=== PATIENT | male | born 1975 ===

== ENCOUNTER 2017-08-28 11:03 | Emergency (ER) | payer OTHER ==
[2017-08-28 12:48] VITALS: BP 107/64
--- NOTE | 2017-08-28 14:09 | UC ---
FLU HPI - HPI Summary HPI Summary: 2 DAYS OF COUGH, CONGESTION, SINUS PRESSURE, BODY ACHES, FEVER TMAX 101, LARKIN. UTD FLU SHOT. - History of Current Complaint Chief Complaint: UCGeneralIllness Stated Complaint: FLU LIKE SX Time Seen by Provider: 08/28/17 13:51 Hx Obtained From: Patient Onset/Duration: Gradual Onset, Lasting Days, Still Present Severity Currently: Moderate Severity Initially: Moderate Pain Intensity: 8 Pain Scale Used: 0-10 Numeric Associated Signs & Symptoms: Positive: Fever, Myalgia, Cough, Nasal Congestion, Headache - Allergy/Home Medications Allergies/Adverse Reactions: Allergies Allergy/AdvReac Type Severity Reaction Status Date / Time Morphine Allergy Itching Verified 08/28/17 12:48 PMH/Surg Hx/FS Hx/Imm Hx Cardiovascular History: Cardiac Disease GI/ History: Renal Disease - Surgical History Surgical History: Yes Surgery Procedure, Year, and Place: Cadiac stents, Chronic kidney disease - Family History Known Family History: Positive: Cardiac Disease, Hypertension - Social History Alcohol Use: None Substance Use Type: None Smoking Status (MU): Former Smoker Review of Systems Constitutional: Fever, Chills, Fatigue ENT: Nasal Discharge Respiratory: Cough Cardiovascular: Negative Gastrointestinal: Negative Musculoskeletal: Myalgia Neurological: Headache All Other Systems Reviewed And Are Negative: Yes Physical Exam Triage Information Reviewed: Yes Appearance: No Pain Distress, Well-Nourished, Ill-Appearing - MOD Vital Signs: Initial Vital Signs Temp 100 F 08/28/17 12:44 Pulse 82 08/28/17 12:44 Resp 16 08/28/17 12:44 BP 107/64 08/28/17 12:44 Pulse Ox 98 08/28/17 12:44 Vital Signs Reviewed: Yes Eyes: Positive: Conjunctiva Clear ENT: Positive: Hearing grossly normal, Pharynx normal, TMs normal Neck: Positive: Supple, Nontender, No Lymphadenopathy Respiratory Exam: Normal Cardiovascular Exam: Normal Abdomen Description: Positive: Soft Musculoskeletal: Positive: No Edema Neurological: Positive: Alert Psychological: Positive: Age Appropriate Behavior Skin: Negative: rashes Diagnostics - Laboratory Diagnostic Studies Completed/Ordered: SWAB POSITIVE INFLUENZA A Flu Course/Dx - Differential Dx/Diagnosis Provider Diagnoses: INFLUENZA A Discharge - Discharge Plan Condition: Stable Disposition: HOME Prescriptions: Oseltamivir CAP* [Tamiflu CAP*] 75 mg PO BID #10 cap Patient Education Materials: Influenza (ED) Referrals: Sanjuana Carbone MD [Primary Care Provider] - If Needed Additional Instructions: SWAB POSITIVE FOR INFLUENZA A. TAMIFLU TWICE DAILY FOR 5 DAYS. OTC MEDS NEEDED FOR FEVER, BODY ACHES. STAY WELL HYDRATED AND RESTED. SEEK FOLLOW-UP IF YOU ARE NOT IMPROVING EXPECTED.
== END 2017-08-28 14:09 | disposition home or self-care (01) ==
LOC: UCCORT 11:03
DX: J09.X2 Influenza due to identified novel influenza A virus with other respiratory manifestations (principal); Z87.891 Personal history of nicotine dependence
CPT/HCPCS: 87502; 99212; G0463

== ENCOUNTER 2018-12-22 21:24 | Emergency (ER) | payer MEDICAID, MEDICARE, OTHER ==
--- OUTSIDE RECORDS SUMMARY | 2018-12-22 21:38 | XMS REPORT | Continuity of Care Document ---
:1975 External Reference #:[id number] Author Name Annamaria Jimenez MD Address [address] [place] [address] Care Team Providers Name Role Phone Efrain Mccloud MD Care Team Information Assistant Manager Quality Management Unavailable Efrain Mccloud MD Primary Care Physician Unavailable Payers Date Identification Numbers Payment Provider Subscriber Policy Number: [id number] Medicare Yoni Bowser PayID: [id number] [address] [place] [address] Expires: 2018 Policy Number: [id number] Medicare Yoni Bowser PayID: [id number] [address] [place] [address] Advance Directives Description No Information Available Problems Active Problems Provider Date Arthralgia of the lower leg Leighton Quezada MD Onset: 05/13/2011 Mixed hyperlipidemia Bia Todd MD Onset: 12/05/2014 Type 2 diabetes mellitus Sanjuana Carbone M.D. Onset: 11/05/2017 Hyperlipidemia Sanjuana Carbone M.D. Onset: 11/05/2017 Chronic kidney disease stage 3 Sanjuana Carbone M.D. Onset: 11/05/2017 Hypothyroidism Sanjuana Carbone M.D. Onset: 11/05/2017 Corns and callosities Sanjuana Carbone M.D. 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 Pure hypercholesterolemia Tigist Burk PA Onset: 05/06/2018 Chronic kidney disease Efrain Mccloud MD Onset: 12/13/2018 Family History Date Family Member(s) Observation Comments General Stroke General Diabetes : (age 71 Father due to Unknown Years) Causes Mother Diabetes Mellitus Type 2 Onset: (age 52 Years) First Brother CAD LVAD Onset: (age 48 Years) First Sister CAD valve replacment Social History Type Date Description Comments Sex Unknown Lives With Diet Patient follows no dietary restrictions 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 Hand Dominance Right-handed ADL's/IADL's Independent with all ADL's Tobacco Use Start: Unknown End: Quit Unknown Cigarette Use Pack Years - 25 Smoking Status Reviewed: 12/14/18 Quit ETOH Use Denies alcohol use Recreational Drug Use Denies Drug Use Tobacco Use Start: Unknown End: Patient is a former smoker Unknown Allergies, Adverse Reactions, Alerts Active Allergies Reaction Severity Comments Date Morphine 05/09/2011 Medications Active Medications SIG Qnty Indications Ordering Date Provider Nicolette Shirley 62 units at night 15ml Efrain Mccloud, 08/12/2018 100Unit/ML Solution Pen-Inject Levothyroxine Sodium 1 tab by mouth every 90tabs Efrain Mccloud, 06/28/2018 day as directed 125mcg Tablets Pentips use for flexpen 100units Sanjuana Carbone, 01/28/2018 31G X 5 mm M.DSukhwinder Misc Multilex take 1 tablet by 100tabs Poolune, 01/12/2018 Tablets mouth once daily BAUDILIO Montano BD Pen place on flexpen for 100units Efrain Mccloud, 11/05/2017 Needle/Laura/Ultra injection once Fine/32G X 4mm daily. one time use 32G X 4 mm Misc Clopidogrel take 1 tablet by 90tabs Efrain Mccloud, 10/15/2017 Bisulfate mouth once daily 75mg Tablets Novolog Flexpen inject 8 units 15units E11.9 Efrain Mccloud, 08/07/2017 subcutaneously three MD 100Unit/ML Solution times daily with Pen-Inject meals use 10 units if sugar over 200, max daily dose is 75 u Freestyle Test check sugar in in 100units Efrain Mccloud, 05/27/2017 the morning fasting, Strips before meals and before bed dx. e11.9 Metoprolol Succinate 1 by mouth every day 90tabs Efrain Mccloud, 04/22/2017 ER 50mg Tablets ER 24HR Torsemide take one tablet by 180tabs Efrain Mccloud, 10/30/2016 20mg mouth twice a day Tablets Nitrostat 1. tab s.l. as 25tabs Bia Todd, 03/04/2016 0.4mg needed every 5 min. Tablets Sub Entresto Take 1 Tablet By 180tabs Susanne, 11/20/2015 24-26mg Mouth Twice Daily Dilan Ríos, Tablets M.D., [facility] Aspirin Ec 1 po qd 90tabs Sanjuana Carbone, 81mg M.D. Tablets DR Atorvastatin Calcium 1 by mouth every day 90tabs Efrain Mccloud, 80mg Tablets History Medications Ventolin HFA 2 puffs q4-6 8gm R06.02 Efrain Mccloud, 08/12/2018 - 108(90Base) hours as needed Unknown mcg/Act Aerosol Magnesium Oxide take one tablet 60tabs Ramesh, 01/12/2018 - by mouth twice [facility], 08/06/2018 400(240mg) mg Tablets daily INSTRUMENTATION AND CONTROLS TECHNICIAN Magnesium Oxide Take One Tablet 60tabs Sanjuana Carbone, 10/15/2017 - By Mouth Twice M.D. Unknown 400(240mg) mg Tablets Daily Lantus Solostar inject 55 units 15units Efrain Mccloud, 08/07/2017 - every night at 08/12/2018 100Unit/ML Solution bedtime Pen-Inject BD Pen place on flexpen 90units Sanjuana Carbone, 05/20/2017 - Needle/Laura/Ultra for injection M.D. 01/28/2018 Fine/32G X once daily. one [id number] time use Levothyroxine Sodium 1 by mouth every Bia oTdd, 10/24/2015 - day Unknown 112mcg Tablets Levothyroxine Sodium 1 by mouth every 90tabs Ramesh, 10/24/2015 - day Charmaine, 06/28/2018 112mcg Tablets INSTRUMENTATION AND CONTROLS TECHNICIAN Entresto 1 by mouth twice 60tabs Bia Todd, 10/01/2015 - 24-26mg Tablets a day Unknown Metoprolol Succinate take 1 tablet 30tabs Bia Todd, 04/17/2015 - ER once daily in in 05/16/2015 50mg Tablets ER 24HR the morning for a total daily dose 150 mg Levothyroxine Sodium 1 tab by mouth 30tabs Bia Todd, 04/17/2015 - daily at leats 30 10/24/2015 100mcg Tablets min before breakfast Entresto 1 tab by mouth 60tabs Bia Todd, 04/17/2015 - 49-51mg Tablets twice daily MD Unknown Magnesium 1 by mouth twice Unknown - 400mg Tablets daily Unknown Nicolette Shirley 55u, titrate as 15ml Sanjuana Carbone, - directed M.D. 08/07/2017 100Unit/ML Solution Pen-Inject Lisinopril 1/2 tab po qd Bia Todd, - 5mg Tablets 11/20/2015 Levothyroxine Sodium 1 and a half tab Bia Todd, - by mouth every MD 04/17/2015 50mcg Tablets day Torsemide 1 by mouth twice 120tabs Susanne, - 20mg Tablets a day Dilan Ríos, 10/30/2016 M.D., [facility] Spironolactone 1 by mouth every Unknown - 25mg day 04/17/2015 Tablets Multi-Day Vitamins 1 by mouth every 100tabs Sanjuana Carbone, - day M.D. 01/12/2018 Tablets Metoprolol Succinate 1/2 by mouth 45tabs Sanjuana Carbone, - ER every day M.D. 04/22/2017 100mg Tablets ER 24HR Magnesium-Oxide 1 by mouth twice 60tabs Sanjuana Carbone, - a day M.D. Unknown 400(241.3mg) mg Tablets Humalog Kwikpen 9ml E11.9 Sanjuana Carbone, - M.D. 08/07/2017 100Unit/ML Solution Pen-Inject Lantus Solostar 55 units every Unknown - day Unknown 100Unit/ML Solution Pen-Inject Plavix 1 by mouth every 90tabs Sanjuana Carbone, - 75mg Tablets day M.D. 10/15/2017 Calcium Carbonate by mouth every Unknown - 650mg day Unknown Tablets Atorvastatin Calcium 1 by mouth every Unknown - 80mg day Unknown Tablets Amiodarone HCL 1 by mouth every Unknown - 100mg day 11/20/2015 Tablets Lipitor 1 po qd 90tabs Unknown - 10mg Tablets Unknown Levothyroxine Sodium 1 po qd 60tabs Unknown - 05/12/2011 50mcg Tablets Tramadol HCL 1 po as needed 20tabs Unknown - 50mg Tablets for pain Unknown Lipitor tab po qd Unknown - 20mg Tablets 05/09/2011 Lisinopril 1 po qd 30tabs Unknown - 5mg Tablets 04/17/2015 Metformin HCL 1 po qd Unknown - 1000mg Unknown Tablets Plavix 1 po qd 30tabs Unknown - 75mg Tablets 05/12/2011 Immunizations CPT Code Status Date Vaccine Lot # [id number] Given 08/06/2017 Influenza Virus Vaccine Quadrivalent Iiv4 Split [id number] Preser Free Id [id number] Refused 04/22/2017 Influenza Vaccine (Fluzone) Age 3 And Older Vital Signs Date Vital Result Comment 12/20/2018 8:48am BP Systolic Sitting Left Arm 122 mmHg BP Diastolic Sitting Left Arm 79 mmHg Body Temperature 97.3 F Heart Rate 70 /min Height 71 inches 5'11" Weight 241.00 lb BMI (Body Mass Index) 33.6 kg/m2 BSA (Body Surface Area) 2.28 m2 [place] body weight in kilograms 78 kg O2 % BldC Oximetry 96 % 12/13/2018 8:47am BP Systolic Sitting Left Arm 112 mmHg BP Diastolic Sitting Left Arm 68 mmHg Body Temperature 97.0 F Heart Rate 70 /min Weight 242.12 lb O2 % BldC Oximetry 94 % 10/19/2018 10:34am BP Systolic Sitting Left Arm 112 mmHg BP Diastolic Sitting Left Arm 70 mmHg Heart Rate 69 /min Respiratory Rate 16 /min Height 71 inches 5'11" Weight 247.00 lb BMI (Body Mass Index) 34.4 kg/m2 BSA (Body Surface Area) 2.31 m2 [place] body weight in kilograms 78 kg O2 Saturation Level with Exercise 97 % 09/13/2018 8:19am BP Systolic 130 mmHg BP Diastolic 78 mmHg Body Temperature 97.5 F Heart Rate 77 /min Respiratory Rate 18 /min Height 71 inches 5'11" Weight 237.00 lb BMI (Body Mass Index) 33.1 kg/m2 BSA (Body Surface Area) 2.27 m2 [place] body weight in kilograms 78 kg O2 % BldC Oximetry 97 % 08/12/2018 2:48pm BP Systolic Sitting Left Arm 102 mmHg BP Diastolic Sitting Left Arm 64 mmHg Body Temperature 98.2 F Heart Rate 71 /min Respiratory Rate 16 /min Height 71 inches 5'11" Weight 234.00 lb BMI (Body Mass Index) 32.6 kg/m2 BSA (Body Surface Area) 2.25 m2 [place] body weight in kilograms 78 kg O2 % BldC Oximetry 98 % 06/28/2018 8:26am BP Systolic Sitting Left Arm 122 mmHg BP Diastolic Sitting Left Arm 72 mmHg Heart Rate 68 /min Respiratory Rate 18 /min Height 71 inches 5'11" Weight 241.00 lb BMI (Body Mass Index) 33.6 kg/m2 BSA (Body Surface Area) 2.28 m2 [place] body weight in kilograms 78 kg 05/06/2018 10:51am BP Systolic Sitting Left Arm 118 mmHg BP Diastolic Sitting Left Arm 74 mmHg Heart Rate 64 /min Respiratory Rate 16 /min Height 71 inches 5'11" Weight 237.00 lb BMI (Body Mass Index) 33.1 kg/m2 BSA (Body Surface Area) 2.27 m2 [place] body weight in kilograms 78 kg O2 % BldC Oximetry 97 % Room air 02/05/2018 10:53am BP Systolic 112 mmHg BP Diastolic 64 mmHg Body Temperature 96.9 F Heart Rate 60 /min Respiratory Rate 18 /min Height 71 inches 5'11" Weight 234.00 lb BMI (Body Mass Index) 32.6 kg/m2 BSA (Body Surface Area) 2.25 m2 [place] body weight in kilograms 78 kg O2 % BldC Oximetry 96 % 11/05/2017 10:45am BP Systolic Sitting Left Arm 120 mmHg BP Diastolic Sitting Left Arm 78 mmHg Body Temperature 97.4 F Heart Rate 70 /min Weight 239.25 lb O2 % BldC Oximetry 98 % 10/29/2017 1:02pm BP Systolic Sitting Left Arm 126 mmHg BP Diastolic Sitting Left Arm 74 mmHg Heart Rate 72 /min Respiratory Rate 16 /min Height 70 inches 5'10" Weight 238.00 lb BMI (Body Mass Index) 34.1 kg/m2 BSA (Body Surface Area) 2.25 m2 [place] body weight in kilograms 75 kg 08/14/2017 9:47am BP Systolic 102 mmHg BP Diastolic 72 mmHg Body Temperature 96.6 F Heart Rate 69 /min Height 70 inches 5'10" Weight 234.00 lb BMI (Body Mass Index) 33.6 kg/m2 BSA (Body Surface Area) 2.23 m2 [place] body weight in kilograms 75 kg O2 % BldC Oximetry 96 % 08/06/2017 10:32am BP Systolic 106 mmHg BP Diastolic 66 mmHg Body Temperature 97.9 F Heart Rate 70 /min Height 70 inches 5'10" Weight 235.00 lb BMI (Body Mass Index) 33.7 kg/m2 BSA (Body Surface Area) 2.24 m2 [place] body weight in kilograms 75 kg O2 % BldC Oximetry 96 % 05/27/2017 10:56am BP Systolic Sitting Left Arm 106 mmHg BP Diastolic Sitting Left Arm 70 mmHg Heart Rate 60 /min Respiratory Rate 16 /min Height 70 inches 5'10" Weight 229.00 lb BMI (Body Mass Index) 32.9 kg/m2 BSA (Body Surface Area) 2.21 m2 [place] body weight in kilograms 75 kg 04/22/2017 10:15am BP Systolic Sitting Right Arm 112 mmHg BP Diastolic Sitting Right Arm 72 mmHg Height 70 inches 5'10" Weight 237.12 lb BMI (Body Mass Index) 34.0 kg/m2 BSA (Body Surface Area) 2.24 m2 [place] body weight in kilograms 75 kg 03/05/2017 2:42pm BP Systolic Sitting Right Arm 122 mmHg BP Diastolic Sitting Right Arm 76 mmHg Heart Rate 98 /min Height 69 inches 5'9" Weight 229.25 lb BMI (Body Mass Index) 33.9 kg/m2 BSA (Body Surface Area) 2.19 m2 [place] body weight in kilograms 73 kg 02/04/2017 1:39pm BP Systolic Sitting Left Arm 110 mmHg BP Diastolic Sitting Left Arm 82 mmHg Heart Rate 60 /min Respiratory Rate 16 /min Height 69 inches 5'9" Weight 227.00 lb BMI (Body Mass Index) 33.5 kg/m2 BSA (Body Surface Area) 2.18 m2 [place] body weight in kilograms 73 kg 01/20/2017 11:34am BP Systolic 116 mmHg BP Diastolic 62 mmHg Body Temperature 97.4 F Heart Rate 70 /min Height 69 inches 5'9" Weight 227.50 lb BMI (Body Mass Index) 33.6 kg/m2 BSA (Body Surface Area) 2.18 m2 [place] body weight in kilograms 73 kg 09/24/2016 11:01am BP Systolic Sitting Right Arm 110 mmHg BP Diastolic Sitting Right Arm 70 mmHg Heart Rate 64 /min Respiratory Rate 16 /min Height 69 inches 5'9" Weight 233.00 lb BMI (Body Mass Index) 34.4 kg/m2 BSA (Body Surface Area) 2.20 m2 06/18/2016 1:38pm BP Systolic Sitting Left Arm 114 mmHg machine 104/76 BP Diastolic Sitting Left Arm 82 mmHg machine 104/76 Heart Rate 68 /min Respiratory Rate 16 /min Height 69 inches 5'9" Weight 228.00 lb BMI (Body Mass Index) 33.7 kg/m2 BSA (Body Surface Area) 2.18 m2 06/04/2016 3:43pm BP Systolic Sitting Right Arm 122 mmHg BP Diastolic Sitting Right Arm 72 mmHg Heart Rate 74 /min Respiratory Rate 16 /min Height 69 inches 5'9" Weight 232.00 lb BMI (Body Mass Index) 34.3 kg/m2 BSA (Body Surface Area) 2.20 m2 03/04/2016 8:13am BP Systolic 108 mmHg BP Diastolic 70 mmHg Heart Rate 60 /min Respiratory Rate 18 /min Height 69 inches 5'9" Weight 232.12 lb BMI (Body Mass Index) 34.3 kg/m2 BSA (Body Surface Area) 2.20 m2 01/02/2016 10:13am BP Systolic Sitting Right Arm 100 mmHg BP Diastolic Sitting Right Arm 76 mmHg BP Systolic Sitting Left Arm 110 mmHg BP Diastolic Sitting Left Arm 75 mmHg Heart Rate 57 /min Respiratory Rate 16 /min Height 69 inches 5'9" Weight 231.00 lb BMI (Body Mass Index) 34.1 kg/m2 BSA (Body Surface Area) 2.20 m2 11/28/2015 10:09am BP Systolic Sitting Left Arm 102 mmHg BP Diastolic Sitting Left Arm 76 mmHg Heart Rate 58 /min Respiratory Rate 16 /min Height 69 inches 5'9" Weight 234.00 lb BMI (Body Mass Index) 34.6 kg/m2 BSA (Body Surface Area) 2.21 m2 10/24/2015 10:54am BP Systolic 118 mmHg BP Diastolic 78 mmHg Height 69 inches 5'9" Weight 234.00 lb BMI (Body Mass Index) 34.6 kg/m2 BSA (Body Surface Area) 2.21 m2 10/01/2015 8:05am BP Systolic Sitting Right Arm 106 mmHg BP Diastolic Sitting Right Arm 60 mmHg Heart Rate 76 /min Respiratory Rate 16 /min Height 69 inches 5'9" Weight 232.00 lb BMI (Body Mass Index) 34.3 kg/m2 BSA (Body Surface Area) 2.20 m2 09/12/2015 3:24pm BP Systolic 112 mmHg BP Diastolic 70 mmHg Height 69 inches 5'9" Weight 232.00 lb BMI (Body Mass Index) 34.3 kg/m2 BSA (Body Surface Area) 2.20 m2 08/28/2015 2:27pm BP Systolic Sitting Left Arm 104 mmHg BP Diastolic Sitting Left Arm 68 mmHg Heart Rate 64 /min Respiratory Rate 16 /min Height 69 inches 5'9" Weight 229.00 lb BMI (Body Mass Index) 33.8 kg/m2 BSA (Body Surface Area) 2.19 m2 06/27/2015 10:27am BP Systolic Sitting Right Arm 108 mmHg BP Diastolic Sitting Right Arm 70 mmHg Heart Rate 62 /min Respiratory Rate 16 /min Height 69 inches 5'9" Weight 225.00 lb BMI (Body Mass Index) 33.2 kg/m2 BSA (Body Surface Area) 2.17 m2 05/16/2015 2:52pm BP Systolic Sitting Left Arm 110 mmHg BP Diastolic Sitting Left Arm 66 mmHg Heart Rate 60 /min Respiratory Rate 16 /min Height 69 inches 5'9" Weight 225.00 lb BMI (Body Mass Index) 33.2 kg/m2 BSA (Body Surface Area) 2.17 m2 04/17/2015 2:42pm BP Systolic Sitting Right Arm 100 mmHg BP Diastolic Sitting Right Arm 70 mmHg Heart Rate 60 /min Respiratory Rate 16 /min Height 69 inches 5'9" Weight 216.00 lb BMI (Body Mass Index) 31.9 kg/m2 BSA (Body Surface Area) 2.13 m2 03/01/2015 9:06am BP Systolic Sitting Left Arm 102 mmHg BP Diastolic Sitting Left Arm 68 mmHg Heart Rate 64 /min Respiratory Rate 16 /min Height 69 inches 5'9" Weight 211.00 lb BMI (Body Mass Index) 31.2 kg/m2 BSA (Body Surface Area) 2.11 m2 01/15/2015 3:38pm BP Systolic Sitting Right Arm 102 mmHg BP Diastolic Sitting Right Arm 76 mmHg Heart Rate 64 /min Respiratory Rate 16 /min Height 69 inches 5'9" Weight 207.00 lb BMI (Body Mass Index) 30.6 kg/m2 BSA (Body Surface Area) 2.10 m2 12/11/2014 1:45pm Heart Rate 62 /min Respiratory Rate 16 /min Height 69 inches 5'9" Weight 195.00 lb BMI (Body Mass Index) 28.8 kg/m2 BSA (Body Surface Area) 2.04 m2 05/13/2011 8:43am Height 69 inches 5'9" Weight 211.00 lb BMI (Body Mass Index) 31.2 kg/m2 Results Test Date Facility Test Result H/L Range Note Glycohemoglobin A1c [facility] Glycohemoglobin 9.4 % High 4.2-6.3 1, 2 9 [address] [facility] (A1c) [place], [place] [id number] [phone] eAG 223 mg/dL LDL Cholesterol Profile 12/13/[address] Cholesterol 111 mg/dL <[address] [place] [address] [id number] [phone] Triglycerides 122 mg/dL <150 4 HDL Cholesterol 36 mg/dL Low >40 5 LDL-Cholesterol 51 mg/dL < 100 6 Glycohemoglobin 09/13/[address] Glycohemoglobin 7.9 % High 4.2-6.3 [address] [place] [address] (A1c) [place], [place] [id number] [phone] eAG 180 mg/dL TSH Reflex FT4 08/12/[address] Thyroid Stim 3.89 uIU/mL N 0.30-4.20 8 And/Or FT3 [address] [place] [address] Hormone [place], [place] [id number] [phone] Reflex add FT3? Y Reflex add FT4? Y Magnesium 08/12/[address] Magnesium 2.4 mg/dL N 1.8-2.[address] [place] [address] Rd [place], [place] [id number] [phone] Reflex add FT3? Y Reflex add FT4? Y CBC W/Automated Diff 06/28/[address] White Blood 6.3 K/uL N 3.4-10.[address] [place] [address] [phone] Red Blood Count 4.52 M/uL N 4.20-5.80 Hemoglobin 14.2 gm/dL N 12.8-17.0 Hematocrit 41.3 % N 38.0-48.0 Mean Cell Volume 91.4 fl N 80.0-96.0 Mean Corpuscular HGB 31.4 pg N 27.0-33.0 Mean Corpuscular HGB Conc 34.4 g/dL N 31.7-36.0 Platelet Count 181 K/uL N 155-360 Red Cell Distri Width SD 41.9 fl N 36-51 Red Cell Distri Width %CV 13.1 % N 11.6-15.8 Mean Platelet Volume 11.2 fL High 6.6-10.6 Neut% 61.9 % N 33.0-73.0 Lymph % 26.6 % N 20.0-42.0 Archer % 9.4 % N 0.0-10.0 Eo% 1.6 % N 0.0-6.6 Bas% 0.5 % N 0.0-1.1 Neut# 3.89 K/uL N 1.8-7.0 Lymph # 1.67 K/uL N 1.0-4.0 Archer # 0.59 K/uL N 0.0-0.8 Eos # 0.10 K/uL N 0.0-0.5 Baso # 0.03 K/uL N 0.0-0.1 Laboratory test 06/28/[address] Thyroid Stim 22.30 High 0.30- 4.[address] Hormone uIU/[place] [address] [phone] Glycohemoglobin 06/28/[address] Glycohemoglobin 8.4 % High 4.2-6.3 [address] (A1c) [place] [address] [phone] eAG 194 mg/dL Comprehensive Metabolic 06/28/[address] Glucose 168 mg/dL High 74-[address] [place] [address] [phone] BUN 24 mg/dL High 7-18 Creatinine 1.9 mg/dL High 0.6-1.3 Glom Filtration Rate, Estimate 41 mL/min >60 If 50 mL/min >60 11 BUN/Creat 12.6 ratio Sodium 137 mmol/L N 136-145 Potassium 3.9 mmol/L N 3.5-5.1 Chloride 103 mmol/L N 98-107 Carbon Dioxide 27 mmol/L N 21-32 Anion Gap 7 mEq/L Low 8-16 Calcium 8.4 mg/dL Low 8.5-10.1 Total Protein 7.6 g/dL N 6.4-8.2 Albumin 3.9 g/dL N 3.4-5.0 Globulin 3.7 g/dL N 1.9-4.3 Alb/Glob 1.1 ratio Bilirubin,Total 0.9 mg/dL N 0.2-1.0 Sgot/Ast 25 U/L N 15-37 SGPT/Alt 48 U/L N 12-78 Alkaline Phosphatase 115 U/L N 45-117 Microalbumin,Random 06/28/2018 [facility] [address] Microalbumin,Urine 6.4 < 20.[address] mg/[place] [address] [phone] LDL Cholesterol 06/28/[address] Cholesterol 113 <200 [address] mg/[place] [address] [phone] Triglycerides 109 mg/dL <150 13 HDL Cholesterol 39 mg/dL Low >40 14 LDL-Cholesterol 52 mg/dL < 100 15 Laboratory test 05/14/2018 [facility] Magnesium 2.5 mg/dL High 1.8-2.4 [address] [place] [address] [phone] CBC W/Automated 05/14/2018 [facility] White Blood 5.5 K/uL N 3.4-10.[address] [place] [address] [phone] Red Blood Count 4.62 M/uL N 4.20-5.80 Hemoglobin 14.5 gm/dL N 12.8-17.0 Hematocrit 42.0 % N 38.0-48.0 Mean Cell Volume 90.9 fl N 80.0-96.0 Mean Corpuscular HGB 31.4 pg N 27.0-33.0 Mean Corpuscular HGB Conc 34.5 g/dL N 31.7-36.0 Platelet Count 178 K/uL N 155-360 Red Cell Distri Width SD 40.9 fl N 36-51 Red Cell Distri Width %CV 12.7 % N 11.6-15.8 Mean Platelet Volume 10.4 fL N 6.6-10.6 Neut% 61.6 % N 33.0-73.0 Lymph % 25.6 % N 20.0-42.0 Archer % 10.5 % High 0.0-10.0 Eo% 1.8 % N 0.0-6.6 Bas% 0.5 % N 0.0-1.1 Neut# 3.41 K/uL N 1.8-7.0 Lymph # 1.42 K/uL N 1.0-4.0 Archer # 0.58 K/uL N 0.0-0.8 Eos # 0.10 K/uL N 0.0-0.5 Baso # 0.03 K/uL N 0.0-0.1 Comprehensive Metabolic 05/14/2018 [facility] Glucose 171 mg/dL High 74-106 Panel [address] [place] [address] [phone] BUN 25 mg/dL High 7-18 Creatinine 1.8 mg/dL High 0.6-1.3 Glom Filtration Rate, Estimate 44 mL/min >60 If 53 mL/min >60 17 BUN/Creat 13.8 ratio Sodium 141 mmol/L N 136-145 Potassium 4.6 mmol/L N 3.5-5.1 Chloride 105 mmol/L N 98-107 Carbon Dioxide 32 mmol/L N 21-32 Anion Gap 4 mEq/L Low 8-16 Calcium 9.0 mg/dL N 8.5-10.1 Total Protein 8.0 g/dL N 6.4-8.2 Albumin 4.1 g/dL N 3.4-5.0 Globulin 3.9 g/dL N 1.9-4.3 Alb/Glob 1.1 ratio Bilirubin,Total 1.0 mg/dL N 0.2-1.0 Sgot/Ast 23 U/L N 15-37 SGPT/Alt 43 U/L N 12-78 Alkaline Phosphatase 116 U/L N 45-117 LDL Cholesterol Profile 05/14/2018 [facility] Cholesterol 90 mg/dL <[address] [place], [place] [address] [phone] Triglycerides 102 mg/dL <150 19 HDL Cholesterol 37 mg/dL Low >40 20 LDL-Cholesterol 33 mg/dL < 100 21 Glycohemoglobin 05/14/2018 [facility] Glycohemoglobin 7.9 % High 4.2-6.[address] (A1c) [place] [address] [phone] eAG 180 mg/dL Glycohemoglobin 02/05/2018 [facility] Glycohemoglobin 7.1 % High 4.2-6.3 23, A1c [address] (A1c) [address] [place], [place] [id number] [phone] eAG 157 mg/dL Microalb/Creat 02/05/2018 [facility] Microalbumin,Urine 7.1 mg/L < 20.0 Ratio,Random [address] [place] [address] [phone] Microalbumin/Creatinine Ratio 24.5 ug/mgCrt < 30.0 Urine Creatinine Conc 29 mg/dL Basic Metabolic Panel 02/05/2018 [facility] Glucose 182 mg/dL High 74-106 [address] [place], [place] [address] [phone] BUN 29 mg/dL High 7-18 Creatinine 1.8 mg/dL High 0.6-1.3 Glom Filtration Rate, Estimate 44 mL/min >60 If 53 mL/min >60 25 BUN/Creat 16.1 ratio Sodium 137 mmol/L N 136-145 Potassium 4.3 mmol/L N 3.5-5.1 Chloride 101 mmol/L N 98-107 Carbon Dioxide 26 mmol/L N 21-32 Anion Gap 10 mEq/L N 8-16 Calcium 8.9 mg/dL N 8.5-10.1 Glycohemoglobin 11/05/2017 [facility] Glycohemoglobin 7.6 % High 4.2-6.3 26, A1c [address] (A1c) [address] [place] [address] [phone] [phone] 171 mg/dL CBS W/Automated Diff 11/05/2017 [facility] White Blood 5.7 K/uL N 3.4-10.[address] [place] [address] [phone] Red Blood Count 4.37 M/uL N 4.20-5.80 Hemoglobin 13.5 gm/dL N 12.8-17.0 Hematocrit 39.4 % N 38.0-48.0 Mean Cell Volume 90.2 fl N 80.0-96.0 Mean Corpuscular HGB 30.9 pg N 27.0-33.0 Mean Corpuscular HGB Conc 34.3 g/dL N 31.7-36.0 Platelet Count 164 K/uL N 155-360 Red Cell Distri Width SD 42.1 fl N 36-51 Red Cell Distri Width %CV 13.1 % N 11.6-15.8 Mean Platelet Volume 11.1 fL High 6.6-10.6 Neut% 61.0 % N 33.0-73.0 Lymph % 28.1 % N 20.0-42.0 Archer % 8.8 % N 0.0-10.0 Eo% 1.4 % N 0.0-6.6 Bas% 0.7 % N 0.0-1.1 Neut# 3.45 K/uL N 1.8-7.0 Lymph # 1.59 K/uL N 1.0-4.0 Archer # 0.50 K/uL N 0.0-0.8 Eos # 0.08 K/uL N 0.0-0.5 Baso # 0.04 K/uL N 0.0-0.1 Comprehensive Metabolic 11/05/2017 [facility] Glucose 111 mg/dL High 74-[address] [place] [address] [phone] BUN 26 mg/dL High 7-18 Creatinine 1.8 mg/dL High 0.6-1.3 Glom Filtration Rate, Estimate 44 mL/min >60 If 53 mL/min >60 28 BUN/Creat 14.4 ratio Sodium 137 mmol/L N 136-145 Potassium 4.4 mmol/L N 3.5-5.1 Chloride 103 mmol/L N 98-107 Carbon Dioxide 29 mmol/L N 21-32 Anion Gap 5 mEq/L Low 8-16 Calcium 8.9 mg/dL N 8.5-10.1 Total Protein 7.6 g/dL N 6.4-8.2 Albumin 4.0 g/dL N 3.4-5.0 Globulin 3.6 g/dL N 1.9-4.3 Alb/Glob 1.1 ratio Bilirubin,Total 0.9 mg/dL N 0.2-1.0 Sgot/Ast 28 U/L N 15-37 SGPT/Alt 35 U/L N 12-78 Alkaline Phosphatase 102 U/L N 45-117 Reflex add FT3? Y Reflex add FT4? Y LDL Cholesterol Profile 11/05/2017 [facility] [facility] Cholesterol 89 mg/dL <200 29 [address] [place], [place] [id number] [phone] Triglycerides 67 mg/dL <150 30 HDL Cholesterol 40 mg/dL >40 31 LDL-Cholesterol 36 mg/dL < 100 32 Reflex add FT3? Y Reflex add FT4? Y TSH Reflex FT4 11/05/2017 [facility] Thyroid Stim 2.15 uIU/mL N 0.30-4.20 And/Or FT3 [address] [place], [place] [id number] [phone] Reflex add FT3? Y Reflex add FT4? Y Magnesium 11/05/2017 [facility] Magnesium 2.5 mg/dL High 1.8-2.4 [address] [place], [place] [id number] [phone] Reflex add FT3? Y Reflex add FT4? Y Rapid 08/28/2017 [facility] Influenza A POSITIVE Abnormal Negative 33 Influenza A & [phone] Molecular B Molecular Influenza B Molecular NEGATIVE Negative Basic Metabolic Panel 08/06/2017 [facility] Glucose 129 mg/dL High 74-106 34 [address] [place], [place] [id number] [phone] BUN 24 mg/dL High 7-18 Creatinine 1.9 mg/dL High 0.6-1.3 Glom Filtration Rate, Estimate 41 mL/min >60 If 50 mL/min >60 35 BUN/Creat 12.6 ratio Sodium 138 mmol/L N 136-145 Potassium 4.1 mmol/L N 3.5-5.1 Chloride 101 mmol/L N 98-107 Carbon Dioxide 30 mmol/L N 21-32 Anion Gap 7 mEq/L Low 8-16 Calcium 9.0 mg/dL N 8.5-10.1 Glycohemoglobin 08/06/2017 [facility] Glycohemoglobin 7.7 % High 4.2-6.[address] (A1c) [place], [place] [id number] [phone] eAG 174 mg/dL LDL Cholesterol Profile 08/06/2017 [facility] Cholesterol 91 mg/dL <[address] [place] [address] [phone] Triglycerides 97 mg/dL <150 38 HDL Cholesterol 35 mg/dL Low >40 39 LDL-Cholesterol 37 mg/dL < 100 40 Glycohemoglobin 04/22/2017 [facility] Glycohemoglobin 7.3 % High 4.2-6.3 [address] (A1c) [place], [place] [id number] [phone] eAG 163 mg/dL Glycohemoglobin 01/20/2017 [facility] Glycohemoglobin 7.3 % High 4.2-6.3 [address] (A1c) [place], [place] [id number] [phone] eAG 163 mg/dL Microalb/Creat 01/20/2017 [facility] Microalbumin,Urine < 6.0 < 20.0 Ratio,Random [address] mg/[place] [address] [phone] Microalbumin/Creatinine Ratio 5.9 ug/mgCrt < 30.0 Urine Creatinine Conc 102 mg/dL Basic Metabolic Panel 12/18/2016 [facility] Glucose 115 mg/dL High 74-[address] [place] [address] [phone] BUN 32 mg/dL High 7-18 Creatinine 1.9 mg/dL High 0.6-1.3 Glom Filtration Rate, Estimate 41 mL/min >60 If 50 mL/min >60 44 BUN/Creat 16.8 ratio Sodium 139 mmol/L N 136-145 Potassium 3.8 mmol/L N 3.5-5.1 Chloride 101 mmol/L N 98-107 Carbon Dioxide 32 mmol/L N 21-32 Anion Gap 6 mEq/L Low 8-16 Calcium 9.1 mg/dL N 8.5-10.1 LDL Cholesterol 09/25/2016 [facility] Cholesterol 95 mg/dL <200 45, 46 Profile [address] [place] [address] [phone] Triglycerides 80 mg/dL <150 47 HDL Cholesterol 38 mg/dL Low >40 48 LDL-Cholesterol 41 mg/dL < 100 49 Reflex add FT3? Y Reflex add FT4? Y Comprehensive Metabolic 09/25/2016 [facility] Glucose 179 mg/dL High 74-106 Panel [address] [place] [address] [phone] BUN 20 mg/dL High 7-18 Creatinine 1.8 mg/dL High 0.6-1.3 Glom Filtration Rate, Estimate 44 mL/min >60 If 53 mL/min >60 50 BUN/Creat 11.1 ratio Sodium 138 mmol/L N 136-145 Potassium 4.2 mmol/L N 3.5-5.1 Chloride 100 mmol/L N 98-107 Carbon Dioxide 29 mmol/L N 21-32 Anion Gap 9 mEq/L N 8-16 Calcium 8.7 mg/dL N 8.5-10.1 Total Protein 7.8 g/dL N 6.4-8.2 Albumin 4.0 g/dL N 3.4-5.0 Globulin 3.8 g/dL N 1.9-4.3 Alb/Glob 1.1 ratio Bilirubin,Total 0.9 mg/dL N 0.2-1.0 Sgot/Ast 26 U/L N 15-37 SGPT/Alt 45 U/L N 12-78 Alkaline Phosphatase 142 U/L High 45-117 Reflex add FT3? Y Reflex add FT4? Y CBS W/Automated Diff 09/25/2016 [facility] White Blood 5.8 K/uL N 3.4-10.[address] [place] [address] [phone] Red Blood Count 4.39 M/uL N 4.20-5.80 Hemoglobin 13.1 gm/dL N 12.8-17.0 Hematocrit 39.0 % N 38.0-48.0 Mean Cell Volume 88.8 fl N 80.0-96.0 Mean Corpuscular HGB 29.8 pg N 27.0-33.0 Mean Corpuscular HGB Conc 33.6 g/dL N 31.7-36.0 Platelet Count 175 K/uL N 150-400 Red Cell Distri Width SD 41.4 fl N 36-51 Red Cell Distri Width %CV 13.3 % N 11.6-15.8 Mean Platelet Volume 10.7 fL High 6.6-10.6 Neut% 63.8 % N 33.0-73.0 Lymph % 27.1 % N 20.0-42.0 Archer % 7.4 % N 0.0-10.0 Eo% 1.2 % N 0.0-6.6 Bas% 0.5 % N 0.0-1.1 Neut# 3.70 K/uL N 1.8-7.0 Lymph # 1.57 K/uL N 1.0-4.0 Archer # 0.43 K/uL N 0.0-0.8 Eos # 0.07 K/uL N 0.0-0.5 Baso # 0.03 K/uL N 0.0-0.1 TSH Reflex FT4 09/25/2016 [facility] Thyroid Stim 1.28 uIU/mL N 0.30-4.20 And/Or FT3 [address] [place] [address] [phone] Reflex add FT3? Y Reflex add FT4? Y LDL Cholesterol 06/18/2016 [facility] Cholesterol 94 mg/dL N <200 51, 52 Profile [address] [place] [address] [phone] Triglycerides 88 mg/dL N <150 53 HDL Cholesterol 36 mg/dL Low >40 54 LDL-Cholesterol 40 mg/dL N < 100 55 Basic Metabolic Panel 06/18/2016 [facility] Glucose 142 mg/dL High 74-106 [address] [place], [place] [id number] [phone] BUN 23 mg/dL High 7-18 Creatinine 1.8 mg/dL High 0.6-1.3 Glom Filtration Rate, Estimate 44 mL/min N >60 If 53 mL/min N >60 56 BUN/Creat 12.7 ratio N Sodium 137 mmol/L N 136-145 Potassium 4.3 mmol/L N 3.5-5.1 Chloride 101 mmol/L N 98-107 Carbon Dioxide 29 mmol/L N 21-32 Anion Gap 7 mEq/L Low 8-16 Calcium 9.0 mg/dL N 8.5-10.1 Laboratory test 03/04/2016 [facility] Magnesium 2.2 mg/dL 1.8-2.4 finding [address] [place] [address] [phone] Comprehensive 03/04/2016 [facility] Glucose 192 mg/dL High 74-106 Metabolic Panel [address] [place] [address] [phone] BUN 22 mg/dL High 7-18 Creatinine 2.2 mg/dL High 0.6-1.3 Glom Filtration Rate, Estimate 35 mL/min >60 If 42 mL/min >60 57 BUN/Creat 10.0 ratio Sodium 136 mmol/L 136-145 Potassium 4.1 mmol/L 3.5-5.1 Chloride 101 mmol/L 98-107 Carbon Dioxide 30 mmol/L 21-32 Anion Gap 5 mEq/L Low 8-16 Calcium 8.7 mg/dL 8.5-10.1 Total Protein 7.6 g/dL 6.4-8.2 Albumin 3.9 g/dL 3.4-5.0 Globulin 3.7 g/dL 1.9-4.3 Alb/Glob 1.1 ratio Bilirubin,Total 0.9 mg/dL 0.2-1.0 Sgot/Ast 23 U/L 15-37 SGPT/Alt 50 U/L 12-78 Alkaline Phosphatase 145 U/L High 45-117 LDL Cholesterol Profile 03/04/2016 [facility] Cholesterol 99 mg/dL <200 58 [address] [facility] [place] [address] [phone] Triglycerides 132 mg/dL <150 59 HDL Cholesterol 35 mg/dL Low >40 60 LDL-Cholesterol 38 mg/dL < 100 61 CBC W/Automated Diff 03/04/2016 [facility] White Blood 6.0 K/uL 3.4-10.5 [address] [place] [address] [phone] Red Blood Count 4.43 M/uL 4.20-5.80 Hemoglobin 13.4 gm/dL 12.8-17.0 Hematocrit 39.5 % 38.0-48.0 Mean Cell Volume 89.2 fl 80.0-96.0 Mean Corpuscular HGB 30.2 pg 27.0-33.0 Mean Corpuscular HGB Conc 33.9 g/dL 31.7-36.0 Platelet Count 174 K/uL 150-400 Red Cell Distri Width SD 41.2 fl 36-51 Red Cell Distri Width %CV 13.1 % 11.6-15.8 Mean Platelet Volume 10.2 fL 6.6-10.6 Neut% 59.9 % 33.0-73.0 Lymph % 29.0 % 17.0-56.0 Archer % 9.1 % 0.0-10.0 Eo% 1.7 % 0.0-5.0 Bas% 0.3 % 0.1-1.0 Neut# 3.62 K/uL 1.8-7.0 Lymph # 1.75 K/uL Low 1.8-7.0 Archer # 0.55 K/uL 0.0-0.8 Eos # 0.10 K/uL 0.0-0.5 Baso # 0.02 K/uL Low 0.1-0.2 Laboratory test 03/04/2016 [facility] TSH Reflex FT4 1.77 0.30-4.[address] and/or FT3 uIU/[place] [address] [phone] Glycohemoglobin 03/04/2016 [facility] Glycohemoglobin 7.7 % High 4.2-6.3 [address] (A1c) [place] [address] [phone] eAG 174 mg/dL Basic Metabolic Panel 01/11/2016 [facility] Glucose 137 mg/dL High 74-[address] [place] [address] [phone] BUN 39 mg/dL High 7-18 Creatinine 2.4 mg/dL High 0.6-1.3 Glom Filtration Rate, Estimate 32 mL/min >60 If 38 mL/min >60 64 BUN/Creat 16.2 ratio Sodium 136 mmol/L 136-145 Potassium 4.3 mmol/L 3.5-5.1 Chloride 103 mmol/L 98-107 Carbon Dioxide 25 mmol/L 21-32 Anion Gap 8 mEq/L 8-16 Calcium 8.8 mg/dL 8.5-10.1 Laboratory test 01/11/2016 [facility] Magnesium 2.4 mg/dL 1.8-2.4 finding [address] [place], [place] [address] [phone] Laboratory test 11/20/2015 N2N/CCD Import Miscellaneous Test(s) finding Test Comment added Laboratory test 11/20/2015 N2N/CCD Import Bedside Glucose 122 High 70- 110 finding Laboratory test 11/20/2015 N2N/CCD Import Anion Gap 5 Low 8-16 finding BUN/Creatinine Ratio 14.7 Basophils # (Auto) 0.05 Low 0.1-0.2 Basophils (%) (Auto) 1.2 High 0.1-1.0 Blood Urea Nitrogen 31 High 7-18 Calcium Level 8.8 8.5-10.1 Carbon Dioxide Level 29 21-32 Chloride Level 104 98-107 Creatinine 2.1 High 0.6-1.3 Eosinophils # (Auto) 0.09 0.0-0.5 Eosinophils (%) (Auto) 2.1 0.0-5.0 Estimated GFR () 45 >60 Estimated GFR (Non- 37 >60 Glucose Screen 122 High 74-106 Hematocrit 39.9 38.0-48.0 Hemoglobin 13.5 12.8-17.0 Lymphocytes # (Auto) 1.71 Low 1.8-7.0 Lymphocytes (%) (Auto) 39.9 17.0-56.0 Magnesium Level 2.7 High 1.8-2.4 Mean Corpuscular Hemoglobin 30.2 27.0-33.0 Mean Corpuscular Hemoglobin Concent 33.8 31.7-36.0 Mean Corpuscular Volume 89.3 80.0-96.0 Mean Platelet Volume 10.6 6.6-10.6 Monocytes # (Auto) 0.65 0.0-0.8 Monocytes (%) (Auto) 15.2 High 0.0-10.0 Neutrophils # (Auto) 1.79 Low 1.8-7.0 Neutrophils (%) (Auto) 41.6 33.0-73.0 Platelet Count 168 150-400 Potassium Level 3.9 3.5-5.1 RDW Coefficient of Variation 13.5 11.6-15.8 Red Blood Count 4.47 4.20-5.80 Red Cell Distribution Width 43.0 36-51 Sodium Level 138 136-145 White Blood Count 4.3 3.4-10.5 Laboratory test 11/19/2015 N2N/[employer] Import Urine Bilirubin Negative Negative finding Urine Blood Negative Negative Urine Clarity Clear Clear Urine Color Yellow Yellow Urine Glucose (Ua) Negative Negative Urine Ketones Negative Negative Urine Leukocyte Esterase Negative Negative Urine Nitrite Negative Negative Urine Protein Negative Negative Urine Urobilinogen 0.2 0.2-1.0 Urine pH 5.0 Low 6.5-7.5 Laboratory test 11/19/2015 N2N[employer] Import Alanine Aminotransferase 56 12 -78 finding (Alt/SGPT) Albumin 4.1 3.4-5.0 Albumin/Globulin Ratio 1.0 Alkaline Phosphatase 137 High 45-117 Aspartate Amino Transf (Ast/Sgot) 30 15-37 Globulin 4.0 1.9-4.3 Total Bilirubin 0.9 0.2-1.0 Total Creatine Kinase 137 39-308 Total Protein 8.1 6.4-8.2 Laboratory test 11/07/2015 N2N[employer] Import Bedside 107 70-110 finding Glucose Comprehensive 10/26/2015 [facility] Glucose 121 mg/dL High 74-106 Metabolic Panel [address] [place] [address] [phone] BUN 39 mg/dL High 7-18 Creatinine 2.0 mg/dL High 0.6-1.3 Glom Filtration Rate, Estimate 39 mL/min >60 If 47 mL/min >60 65 BUN/Creat 19.5 ratio Sodium 136 mmol/L 136-145 Potassium 4.2 mmol/L 3.5-5.1 Chloride 103 mmol/L 98-107 Carbon Dioxide 27 mmol/L 21-32 Anion Gap 6 mEq/L Low 8-16 Calcium 8.8 mg/dL 8.5-10.1 Total Protein 8.4 g/dL High 6.4-8.2 Albumin 4.2 g/dL 3.4-5.0 Globulin 4.2 g/dL 1.9-4.3 Alb/Glob 1.0 ratio Bilirubin,Total 0.7 mg/dL 0.2-1.0 Sgot/Ast 31 U/L 15-37 SGPT/Alt 63 U/L 12-78 Alkaline Phosphatase 117 U/L 45-117 Glycohemoglobin 10/26/2015 [facility] Glycohemoglobin 7.8 % High 4.2-6.3 [address] (A1c) [place] [address] [phone] eAG 177 mg/dL Laboratory test 10/26/2015 [facility] Ia 2 Autoantibodies < 1.0 . [address] U/mL [place], [place] [address] [phone] LDL Cholesterol 10/26/2015 [facility] Cholesterol 113 mg/dL <200 [address] [place] [address] [phone] Triglycerides 94 mg/dL <150 69 HDL Cholesterol 34 mg/dL Low >40 70 LDL-Cholesterol 60 mg/dL < 100 71 Laboratory test 10/26/2015 [facility] TSH Reflex 3.79 uIU/mL High 0.36-3.74 72 finding [address] [facility] FT4 and/[place] [address] FT3 [phone] Free T4 1.27 ng/dL 0.76-1.46 Laboratory test finding 10/26/2015 N2N/CCD Import Estimated Average 177 Glucose (eAG) Estimated GFR () 47 >60 Estimated GFR (Non- 39 >60 Hemoglobin A1c 7.8 High 4.2-6.3 Sodium Level 136 136-145 Thyroid Stimulating Hormone (TSH) 3.79 High 0.36-3.74 Laboratory test 10/08/2015 N2N/CCD Import Bedside 162 High 70-110 finding Glucose Laboratory test 09/13/2015 [facility] C-Peptide 0.9 ng/mL Low 1.1-4.4 [address] [place] [address] [phone] Comprehensive 09/13/2015 [facility] Glucose 99 mg/dL 74-106 Metabolic Panel [address] [place] [address] [phone] BUN 21 mg/dL High 7-18 Creatinine 1.8 mg/dL High 0.6-1.3 Glom Filtration Rate, Estimate 44 mL/min >60 If 53 mL/min >60 74 BUN/Creat 11.6 ratio Sodium 140 mmol/L 136-145 Potassium 3.9 mmol/L 3.5-5.1 Chloride 103 mmol/L 98-107 Carbon Dioxide 29 mmol/L 21-32 Anion Gap 8 mEq/L 8-16 Calcium 8.9 mg/dL 8.5-10.1 Total Protein 7.4 g/dL 6.4-8.2 Albumin 3.7 g/dL 3.4-5.0 Globulin 3.7 g/dL 1.9-4.3 Alb/Glob 1.0 ratio Bilirubin,Total 0.7 mg/dL 0.2-1.0 Sgot/Ast 23 U/L 15-37 SGPT/Alt 51 U/L 12-78 Alkaline Phosphatase 143 U/L High 45-117 Glycohemoglobin 09/13/2015 [facility] Glycohemoglobin 9.7 % High 4.2-6.[address] (A1c) [place] [address] [phone] eAG 232 mg/dL LDL Cholesterol Profile 09/13/2015 [facility] Cholesterol 104 mg/dL <[address] [place] [address] [phone] Triglycerides 104 mg/dL <150 77 HDL Cholesterol 35 mg/dL Low >40 78 LDL-Cholesterol 48 mg/dL < 100 79 Testosterone,Serum 09/13/2015 [facility] Testosterone,Serum [phone] ng/[place] [address] [phone] Comment See Note 80 CBC W/Automated Diff 09/13/2015 [facility] White Blood 5.0 K/uL 3.4-10.[address] [place] [address] [phone] Red Blood Count 4.35 M/uL 4.20-5.80 Hemoglobin 12.8 gm/dL 12.8-17.0 Hematocrit 38.8 % 38.0-48.0 Mean Cell Volume 89.2 fl 80.0-96.0 Mean Corpuscular HGB 29.4 pg 27.0-33.0 Mean Corpuscular HGB Conc 33.0 g/dL 31.7-36.0 Platelet Count 179 K/uL 150-400 Red Cell Distri Width SD 42.6 fl 36-51 Red Cell Distri Width %CV 13.5 % 11.6-15.8 Mean Platelet Volume 10.4 fL 6.6-10.6 Neut% 57.9 % 33.0-73.0 Lymph % 28.3 % 17.0-56.0 Archer % 11.0 % High 0.0-10.0 Eo% 1.8 % 0.0-5.0 Bas% 1.0 % 0.1-1.0 Neut# 2.90 K/uL 1.8-7.0 Lymph # 1.42 K/uL Low 1.8-7.0 Archer # 0.55 K/uL 0.0-0.8 Eos # 0.09 K/uL 0.0-0.5 Baso # 0.05 K/uL Low 0.1-0.2 Microalbumin,Random 09/13/2015 [facility] Microalbumin,Urine < 5.0 < 20.[address] mg/[place] [address] [phone] Laboratory test 09/13/2015 N2N/CCD Import Basophils # (Auto) 0.05 Low 0.1 -0. finding 2 Basophils (%) (Auto) 1.0 0.1-1.0 Eosinophils # (Auto) 0.09 0.0-0.5 Eosinophils (%) (Auto) 1.8 0.0-5.0 Estimated Average Glucose (eAG) 232 Estimated GFR () 53 >60 Estimated GFR (Non- 44 >60 Hemoglobin A1c 9.7 High 4.2-6.3 Lymphocytes # (Auto) 1.42 Low 1.8-7.0 Lymphocytes (%) (Auto) 28.3 17.0-56.0 Monocytes # (Auto) 0.55 0.0-0.8 Monocytes (%) (Auto) 11.0 High 0.0-10.0 Neutrophils # (Auto) 2.90 1.8-7.0 Neutrophils (%) (Auto) 57.9 33.0-73.0 RDW Coefficient of Variation 13.5 11.6-15.8 Red Cell Distribution Width 42.6 36-51 Reference Lab Test Comments See Note 81 Sodium Level 140 136-145 Testosterone Level [phone] Laboratory test 08/20/2015 N2N/CCD Import Bedside Glucose 235 High 70- 110 finding Laboratory test 08/19/2015 N2N/CCD Import Basophils # (Auto) 0.03 Low 0.1 -0.2 finding Basophils (%) (Auto) 0.5 0.1-1.0 Eosinophils # (Auto) 0.07 0.0-0.5 Eosinophils (%) (Auto) 1.2 0.0-5.0 Estimated GFR () 45 >60 Estimated GFR (Non- 37 >60 Lymphocytes # (Auto) 1.23 Low 1.8-7.0 Lymphocytes (%) (Auto) 21.9 17.0-56.0 Monocytes # (Auto) 0.63 0.0-0.8 Monocytes (%) (Auto) 11.2 High 0.0-10.0 Neutrophils # (Auto) 3.65 1.8-7.0 Neutrophils (%) (Auto) 65.2 33.0-73.0 RDW Coefficient of Variation 12.4 11.6-15.8 Red Cell Distribution Width 39.6 36-51 Sodium Level 139 136-145 Anion Gap 7 Low 8-16 BUN/Creatinine Ratio 12.8 Blood Urea Nitrogen 27 High 7-18 Calcium Level 8.5 8.5-10.1 Carbon Dioxide Level 29 21-32 Chloride Level 103 98-107 Creatinine 2.1 High 0.6-1.3 Glucose Screen 165 High 74-106 Hematocrit 34.2 Low 38.0-48.0 Hemoglobin 11.8 Low 12.8-17.0 Mean Corpuscular Hemoglobin 30.6 27.0-33.0 Mean Corpuscular Hemoglobin Concent 34.5 31.7-36.0 Mean Corpuscular Volume 88.8 80.0-96.0 Mean Platelet Volume 10.7 High 6.6-10.6 Platelet Count 209 150-400 Potassium Level 4.1 3.5-5.1 Red Blood Count 3.85 Low 4.20-5.80 White Blood Count 5.6 3.4-10.5 Laboratory test finding 08/18/2015 N2N/CCD Import Estimated Average 237 Glucose (eAG) Hemoglobin A1c 9.9 High 4.2-6.3 Laboratory test 08/18/2015 N2N/CCD Import Miscellaneous Test Test(s) added finding Comment Laboratory test 08/17/2015 N2N/CCD Import Total Creatine 81 39-308 finding Kinase Alanine Aminotransferase (Alt/SGPT) 30 12-78 Albumin 3.7 3.4-5.0 Albumin/Globulin Ratio 0.9 Alkaline Phosphatase 134 High 45-117 Aspartate Amino Transf (Ast/Sgot) 13 Low 15-37 Globulin 4.2 1.9-4.3 Magnesium Level 2.1 1.8-2.4 Total Bilirubin 0.6 0.2-1.0 Total Protein 7.9 6.4-8.2 Laboratory test finding 06/27/2015 N2N/CCD Import Estimated GFR ( 48 >60 Citizen [place]) Estimated GFR (Non- 39 >60 Sodium Level 136 136-145 Laboratory test finding 06/27/2015 [facility] Magnesium 2.4 mg/dL 1.8-2.4 [address] [place], [place] [id number] [phone] Free T3 2.29 pg/mL 2.18-3.98 Free T4 1.40 ng/dL 0.76-1.46 Basic Metabolic Panel 06/27/2015 [facility] Glucose 182 mg/dL High 74-106 [address] [place], [place] [id number] [phone] BUN 30 mg/dL High 7-18 Creatinine 2.0 mg/dL High 0.6-1.3 Glom Filtration Rate, Estimate 39 mL/min >60 If 48 mL/min >60 82 BUN/Creat 15.0 ratio Sodium 136 mmol/L 136-145 Potassium 4.1 mmol/L 3.5-5.1 Chloride 100 mmol/L 98-107 Carbon Dioxide 30 mmol/L 21-32 Anion Gap 6 mEq/L Low 8-16 Calcium 9.6 mg/dL 8.5-10.1 Laboratory test 06/27/2015 [facility] TSH Reflex 4.08 High 0.36-3.[address] FT4 and/or uIU/[place] [address] FT3 [phone] Basic Metabolic 05/10/2015 [facility] Glucose 155 mg/dL High 74-106 Panel [address] [place] [address] [phone] BUN 28 mg/dL High 7-18 Creatinine 1.9 mg/dL High 0.6-1.3 Glom Filtration Rate, Estimate 42 mL/min >60 If 50 mL/min >60 84 BUN/Creat 14.7 ratio Sodium 136 mmol/L 136-145 Potassium 4.3 mmol/L 3.5-5.1 Chloride 103 mmol/L 98-107 Carbon Dioxide 32 mmol/L 21-32 Anion Gap 1 mEq/L Low 8-16 Calcium 9.7 mg/dL 8.5-10.1 Laboratory test 05/10/2015 [facility] Thyroid Stim 4.72 High 0.36-3.[address] Hormone uIU/[place] [address] [phone] Glycohemoglobin 05/10/2015 [facility] Glycohemoglobin 8.2 % High 4.2-6.3 [address] (A1c) [place] [address] [phone] eAG 189 mg/dL Laboratory test finding 05/10/2015 N2N/CCD Import Estimated Average 189 Glucose (eAG) Estimated GFR () 50 >60 Estimated GFR (Non- 42 >60 Hemoglobin A1c 8.2 High 4.2-6.3 Sodium Level 136 136-145 Basic Metabolic Panel 04/17/2015 [facility] Glucose 139 mg/dL High 74-[address] [place] [address] [phone] BUN 35 mg/dL High 7-18 Creatinine 2.5 mg/dL High 0.6-1.3 Glom Filtration Rate, Estimate 30 mL/min >60 If 37 mL/min >60 86 BUN/Creat 14.0 ratio Sodium 137 mmol/L 136-145 Potassium 4.6 mmol/L 3.5-5.1 Chloride 101 mmol/L 98-107 Carbon Dioxide 27 mmol/L 21-32 Anion Gap 9 mEq/L 8-16 Calcium 9.2 mg/dL 8.5-10.1 CBS W/Automated Diff 04/17/2015 [facility] White Blood 5.5 K/uL 3.4-10.[address] [place] [address] [phone] Red Blood Count 3.78 M/uL Low 4.20-5.80 Hemoglobin 11.8 gm/dL Low 12.8-17.0 Hematocrit 34.2 % Low 38.0-48.0 Mean Cell Volume 90.5 fl 80.0-96.0 Mean Corpuscular HGB 31.2 pg 27.0-33.0 Mean Corpuscular HGB Conc 34.5 g/dL 31.7-36.0 Platelet Count 185 K/uL 150-400 Red Cell Distri Width SD 39.6 fl 36-51 Red Cell Distri Width %CV 12.6 % 11.6-15.8 Mean Platelet Volume 10.6 fL 6.6-10.6 Neut% 62.0 % 33.0-73.0 Lymph % 26.5 % 17.0-56.0 Archer % 9.0 % 0.0-10.0 Eo% 1.8 % 0.0-5.0 Bas% 0.7 % 0.1-1.0 Neut# 3.39 K/uL 1.8-7.0 Lymph # 1.45 K/uL Low 1.8-7.0 Archer # 0.49 K/uL 0.0-0.8 Eos # 0.10 K/uL 0.0-0.5 Baso # 0.04 K/uL Low 0.1-0.2 LDL Cholesterol 04/17/2015 [facility] Cholesterol 113 mg/dL < 200 87 [address] [place] [address] [phone] Triglycerides 154 mg/dL < 150 88 HDL Cholesterol 39 mg/dL > 40 89 LDL-Cholesterol 43 mg/dL < 100 90 Liver Function Tests 04/17/2015 [facility] Total Protein 7.8 g/dL 6.4-8.2 [address] [place] [address] [phone] Albumin 4.2 g/dL 3.4-5.0 Globulin 3.6 g/dL 1.9-4.3 Alb/Glob 1.2 ratio Bilirubin,Total 0.7 mg/dL 0.2-1.0 Bilirubin,Direct 0.2 mg/dL 0.0-0.2 Bilirubin,Indirect 0.5 mg/dL 0.0-0.9 Sgot/Ast 23 U/L 15-37 SGPT/Alt 54 U/L 12-78 Alkaline Phosphatase 112 U/L 45-117 Laboratory test finding 04/17/2015 [facility] Magnesium 2.2 mg/dL 1.8-2.4 [address] [place] [address] [phone] Thyroid Stim Hormone 10.00 uIU/mL High 0.36-3.74 Basic Metabolic Panel 01/15/2015 [facility] Glucose 326 mg/dL High 74-106 [address] [place] [address] [phone] BUN 29 mg/dL High 7-18 Creatinine 1.9 mg/dL High 0.6-1.3 Glom Filtration Rate, Estimate 42 mL/min >60 If 50 mL/min >60 91 BUN/Creat 15.2 ratio Sodium 135 mmol/L Low 136-145 Potassium 4.8 mmol/L 3.5-5.1 Chloride 96 mmol/L Low 98-107 Carbon Dioxide 30 mmol/L 21-32 Anion Gap 9 mEq/L 8-16 Calcium 9.1 mg/dL 8.5-10.1 Liver Function Tests 01/15/2015 [facility] Total Protein 8.1 g/dL 6.4-8.2 [address] [place] [address] [phone] Albumin 4.4 g/dL 3.4-5.0 Globulin 3.7 g/dL 1.9-4.3 Alb/Glob 1.2 ratio Bilirubin,Total 0.8 mg/dL 0.2-1.0 Bilirubin,Direct 0.2 mg/dL 0.0-0.2 Bilirubin,Indirect 0.6 mg/dL 0.0-0.9 Sgot/Ast 27 U/L 15-37 SGPT/Alt 54 U/L 12-78 Alkaline Phosphatase 105 U/L 45-117 Laboratory test finding 01/15/2015 [facility] Magnesium 2.1 mg/dL 1.8-2.4 [address] [place] [address] [phone] TSH Reflex FT4 and/or FT3 12.80 uIU/mL High 0.36-3.74 92 Free T3 2.03 pg/mL Low 2.18-3.98 Free T4 1.03 ng/dL 0.76-1.46 Comprehensive 12/11/2014 [facility] Glucose 174 mg/dL High 74-106 93 Metabolic Panel [address] [place], [place] [id number] [phone] BUN 23 mg/dL High 7-18 Creatinine 1.9 mg/dL High 0.6-1.3 Glom Filtration Rate, Estimate 42 mL/min >60 If 50 mL/min >60 94 BUN/Creat 12.1 ratio Sodium 135 mmol/L Low 136-145 Potassium 4.5 mmol/L 3.5-5.1 Chloride 100 mmol/L 98-107 Carbon Dioxide 30 mmol/L 21-32 Anion Gap 5 mEq/L Low 8-16 Calcium 8.8 mg/dL 8.5-10.1 Total Protein 8.1 g/dL 6.4-8.2 Albumin 4.2 g/dL 3.4-5.0 Globulin 3.9 g/dL 1.9-4.3 Alb/Glob 1.1 ratio Bilirubin,Total 0.5 mg/dL 0.2-1.0 Sgot/Ast 27 U/L 15-37 SGPT/Alt 52 U/L 12-78 Alkaline Phosphatase 113 U/L 45-117 CBS W/Automated Diff 12/11/2014 [facility] White Blood 5.4 K/uL 3.4-10.[address] [place] [address] [phone] Red Blood Count 4.01 M/uL Low 4.20-5.80 Hemoglobin 12.3 gm/dL Low 12.8-17.0 Hematocrit 36.4 % Low 38.0-48.0 Mean Cell Volume 90.8 fl 80.0-96.0 Mean Corpuscular HGB 30.7 pg 27.0-33.0 Mean Corpuscular HGB Conc 33.8 g/dL 31.7-36.0 Platelet Count 251 K/uL 150-400 Red Cell Distri Width SD 44.0 fl 36-51 Red Cell Distri Width %CV 13.8 % 11.6-15.8 Mean Platelet Volume 10.4 fL 6.6-10.6 Neut% 54.5 % 33.0-73.0 Lymph % 30.1 % 17.0-56.0 Archer % 11.5 % High 0.0-10.0 Eo% 2.8 % 0.0-5.0 Bas% 1.1 % High 0.1-1.0 Neut# 2.94 K/uL 1.8-7.0 Lymph # 1.62 K/uL Low 1.8-7.0 Archer # 0.62 K/uL 0.0-0.8 Eos # 0.15 K/uL 0.0-0.5 Baso # 0.06 K/uL Low 0.1-0.2 LDL Cholesterol 12/11/2014 [facility] Cholesterol 129 mg/dL < 200 95 [address] [place] [address] [phone] Triglycerides 105 mg/dL < 150 96 HDL Cholesterol 53 mg/dL > 40 97 LDL-Cholesterol 55 mg/dL < 100 98 Laboratory test finding 12/11/2014 [facility] Magnesium 2.1 mg/dL 1.8-2.4 [address] [place] [address] [phone] TSH Reflex FT4 and/or FT3 25.80 uIU/mL High 0.36-3.74 99 Ferritin 268 ng/mL 26-388 Free T3 2.06 pg/mL Low 2.18-3.98 Free T4 0.80 ng/dL 0.76-1.46 Laboratory test 10/20/2014 N2N/CCD Import [employer] 1.1 0.9-1.1 finding Normalized Ratio Prothrombin Time 14.0 12.1-14.9 RDW Coefficient of Variation 12.1 11.6-15.8 Hematocrit 35.5 Low 38.0-48.0 Hemoglobin 12.3 Low 12.8-17.0 Mean Corpuscular Hemoglobin 31.1 27.0-33.0 Mean Corpuscular Hemoglobin Concent 34.6 31.7-36.0 Mean Corpuscular Volume 89.9 80.0-96.0 Mean Platelet Volume 11.1 High 6.6-10.6 Platelet Count 168 150-400 Red Blood Count 3.95 Low 4.20-5.80 White Blood Count 11.9 High 3.4-10.5 Laboratory test 10/20/2014 N2N/CCD Import Creatine Kinase MB 8.4 High 0.5 -3.6 finding Fraction Total Creatine Kinase 557 *H 39-308 Troponin I 13.300 *H Laboratory 10/20/2014 [facility] Aot Request Test(s) 100 test finding [address] [facility] [place] [address] [phone] Laboratory 10/20/2014 N2N/CCD Import Miscellaneous Test(s) test finding Test Comment added Laboratory 10/20/2014 N2N/CCD Import Urine Bilirubin Negative Negative test finding Urine Blood Trace Negative Urine Clarity Clear Clear Urine Color Yellow Yellow Urine Glucose (Ua) 500 High Negative Urine Ketones Negative Negative Urine Leukocyte Esterase Negative Negative Urine Nitrite Negative Negative Urine Protein 30 High Negative Urine Specific [place] 1.025 1.010-1.030 Urine Urobilinogen 1.0 0.2-1.0 Urine pH 6.0 Low 6.5-7.5 Laboratory test 10/20/2014 N2N/CCD Import Basophils # (Auto) 0.02 Low 0.1 -0.2 finding Basophils (%) (Auto) 0.1 0.1-1.0 Eosinophils # (Auto) 0.00 0.0-0.5 Eosinophils (%) (Auto) 0.0 0.0-5.0 Lymphocytes # (Auto) 1.14 Low 1.8-7.0 Lymphocytes (%) (Auto) 8.1 Low 17.0-56.0 Monocytes # (Auto) 1.00 High 0.0-0.8 Monocytes (%) (Auto) 7.1 0.0-10.0 Neutrophils # (Auto) 11.90 High 1.8-7.0 Neutrophils (%) (Auto) 84.7 High 33.0-73.0 Red Cell Distribution Width 39.1 36-51 Sodium Level 129 Low 136-145 Alanine Aminotransferase (Alt/SGPT) 49 12-78 Albumin 3.0 Low 3.4-5.0 Albumin/Globulin Ratio 0.8 Alkaline Phosphatase 74 45-117 Anion Gap 5 Low 8-16 Aspartate Amino Transf (Ast/Sgot) 111 #H 15-37 BUN/Creatinine Ratio 13.8 Blood Urea Nitrogen 18 7-18 Calcium Level 8.7 8.5-10.1 Carbon Dioxide Level 29 21-32 Chloride Level 95 Low 98-107 Creatinine 1.3 0.6-1.3 Globulin 4.0 1.9-4.3 Glucose Screen 285 High 74-106 Potassium Level 3.8 3.5-5.1 Total Bilirubin 1.5 High 0.2-1.0 Total Protein 7.0 6.4-8.2 Laboratory test 10/19/2014 N2N/CCD Import Direct Bilirubin 0.4 High 0.0- 0.2 finding Indirect Bilirubin 0.9 0.0-0.9 Laboratory test finding 10/18/2014 N2N/CCD Import Lipase 230 73-393 Laboratory test finding 10/18/2014 N2N/CCD Import Bedside Glucose 256 High 70-110 1 E11.9 2 Elevated levels of HbA1c suggest the need for more aggressive treatment of glycemia. The [place] [employer] recommends that a primary goal of therapy should be a HbA1c of <7% and that physicians should re-evaluate the treatment regimen in patients with HbA1c values consistently >8%. 3 Reference Guidelines*: Desirable: ........... < 200 mg/dL Borderline High: ..... 200-239 mg/dL High: ................ >=240 mg/dL * The National Cholesterol Education Program (NCEP) 4 Reference Guidelines*: Normal: ............. < 150 mg/dL Borderline High: .... 150-199 mg/dL High: ............... 200-499 mg/dL Very High: .......... > 500 mg/dL * Source: National Cholesterol Education Program (NCEP) 5 Reference Guidelines*: Low HDL: ..... < 40 mg/dL Normal: ..... 40-60 mg/dL Desirable: ... > 60 mg/dL *The National Cholesterol Education Program(NCEP) 6 Reference Guidelines*: Optimal:........... <100 mg/dL Near Optimal....... 100-129 mg/dL Borderline High.... 130-159 mg/dL High............... 160-189 mg/dL Very High.......... >=190 mg/dL * Source: National Cholesterol Education Program (NCEP) 7 Elevated levels of HbA1c suggest the need for more aggressive treatment of glycemia. The [place] [employer] recommends that a primary goal of therapy should be a HbA1c of <7% and that physicians should re-evaluate the treatment regimen in patients with HbA1c values consistently >8%. 8 E03.9 9 E11.65 10 Elevated levels of HbA1c suggest the need for more aggressive treatment of glycemia. The [place] [employer] recommends that a primary goal of therapy should be a HbA1c of <7% and that physicians should re-evaluate the treatment regimen in patients with HbA1c values consistently >8%. 11 Note: Persistent reduction for 3 months or more in an eGFR <60 mL/min/1.73 m2 defines CKD. Patients with eGFR values >/=60 mL/min/1.73 m2 may also have CKD if evidence of persistent proteinuria is present. The original MDRD equation for estimated GFR is not valid for patients less than 18 years of age. Additional information may be found at [email or web address]. 12 Reference Guidelines*: Desirable: ........... < 200 mg/dL Borderline High: ..... 200-239 mg/dL High: ................ >=240 mg/dL * The National Cholesterol Education Program (NCEP) 13 Reference Guidelines*: Normal: ............. < 150 mg/dL Borderline High: .... 150-199 mg/dL High: ............... 200-499 mg/dL Very High: .......... > 500 mg/dL * Source: National Cholesterol Education Program (NCEP) 14 Reference Guidelines*: Low HDL: ..... < 40 mg/dL Normal: ..... 40-60 mg/dL Desirable: ... > 60 mg/dL *The National Cholesterol Education Program(NCEP) 15 Reference Guidelines*: Optimal:........... <100 mg/dL Near Optimal....... 100-129 mg/dL Borderline High.... 130-159 mg/dL High............... 160-189 mg/dL Very High.......... >=190 mg/dL * Source: National Cholesterol Education Program (NCEP) 16 I25.10 ATHSCL HEART DISEASE OF [place] CORONARY ART 17 Note: Persistent reduction for 3 months or more in an eGFR <60 mL/min/1.73 m2 defines CKD. Patients with eGFR values >/=60 mL/min/1.73 m2 may also have CKD if evidence of persistent proteinuria is present. The original MDRD equation for estimated GFR is not valid for patients less than 18 years of age. Additional information may be found at [email or web address]. 18 Reference Guidelines*: Desirable: ........... < 200 mg/dL Borderline High: ..... 200-239 mg/dL High: ................ >=240 mg/dL * The National Cholesterol Education Program (NCEP) 19 Reference Guidelines*: Normal: ............. < 150 mg/dL Borderline High: .... 150-199 mg/dL High: ............... 200-499 mg/dL Very High: .......... > 500 mg/dL * Source: National Cholesterol Education Program (NCEP) 20 Reference Guidelines*: Low HDL: ..... < 40 mg/dL Normal: ..... 40-60 mg/dL Desirable: ... > 60 mg/dL *The National Cholesterol Education Program(NCEP) 21 Reference Guidelines*: Optimal:........... <100 mg/dL Near Optimal....... 100-129 mg/dL Borderline High.... 130-159 mg/dL High............... 160-189 mg/dL Very High.......... >=190 mg/dL * Source: National Cholesterol Education Program (NCEP) 22 Elevated levels of HbA1c suggest the need for more aggressive treatment of glycemia. The [place] [employer] recommends that a primary goal of therapy should be a HbA1c of <7% and that physicians should re-evaluate the treatment regimen in patients with HbA1c values consistently >8%. 23 E11.9 N18.3 24 Elevated levels of HbA1c suggest the need for more aggressive treatment of glycemia. The [place] [employer] recommends that a primary goal of therapy should be a HbA1c of <7% and that physicians should re-evaluate the treatment regimen in patients with HbA1c values consistently >8%. 25 Note: Persistent reduction for 3 months or more in an eGFR <60 mL/min/1.73 m2 defines CKD. Patients with eGFR values >/=60 mL/min/1.73 m2 may also have CKD if evidence of persistent proteinuria is present. The original MDRD equation for estimated GFR is not valid for patients less than 18 years of age. Additional information may be found at [email or web address]. 26 I25.5 E11.9 27 Elevated levels of HbA1c suggest the need for more aggressive treatment of glycemia. The [place] [employer] recommends that a primary goal of therapy should be a HbA1c of <7% and that physicians should re-evaluate the treatment regimen in patients with HbA1c values consistently >8%. 28 Note: Persistent reduction for 3 months or more in an eGFR <60 mL/min/1.73 m2 defines CKD. Patients with eGFR values >/=60 mL/min/1.73 m2 may also have CKD if evidence of persistent proteinuria is present. The original MDRD equation for estimated GFR is not valid for patients less than 18 years of age. Additional information may be found at [email or web address]. 29 Reference Guidelines*: Desirable: ........... < 200 mg/dL Borderline High: ..... 200-239 mg/dL High: ................ >=240 mg/dL * The National Cholesterol Education Program (NCEP) 30 Reference Guidelines*: Normal: ............. < 150 mg/dL Borderline High: .... 150-199 mg/dL High: ............... 200-499 mg/dL Very High: .......... > 500 mg/dL * Source: National Cholesterol Education Program (NCEP) 31 Reference Guidelines*: Low HDL: ..... < 40 mg/dL Normal: ..... 40-60 mg/dL Desirable: ... > 60 mg/dL *The National Cholesterol Education Program(NCEP) 32 Reference Guidelines*: Optimal:........... <100 mg/dL Near Optimal....... 100-129 mg/dL Borderline High.... 130-159 mg/dL High............... 160-189 mg/dL Very High.......... >=190 mg/dL * Source: National Cholesterol Education Program (NCEP) 33 Plant Scientist: [id number] 34 E11.9 35 Note: Persistent reduction for 3 months or more in an eGFR <60 mL/min/1.73 m2 defines CKD. Patients with eGFR values >/=60 mL/min/1.73 m2 may also have CKD if evidence of persistent proteinuria is present. The original MDRD equation for estimated GFR is not valid for patients less than 18 years of age. Additional information may be found at [email or web address]. 36 Elevated levels of HbA1c suggest the need for more aggressive treatment of glycemia. The [place] [employer] recommends that a primary goal of therapy should be a HbA1c of <7% and that physicians should re-evaluate the treatment regimen in patients with HbA1c values consistently >8%. 37 Reference Guidelines*: Desirable: ........... < 200 mg/dL Borderline High: ..... 200-239 mg/dL High: ................ >=240 mg/dL * The National Cholesterol Education Program (NCEP) 38 Reference Guidelines*: Normal: ............. < 150 mg/dL Borderline High: .... 150-199 mg/dL High: ............... 200-499 mg/dL Very High: .......... > 500 mg/dL * Source: National Cholesterol Education Program (NCEP) 39 Reference Guidelines*: Low HDL: ..... < 40 mg/dL Normal: ..... 40-60 mg/dL Desirable: ... > 60 mg/dL *The National Cholesterol Education Program(NCEP) 40 Reference Guidelines*: Optimal:........... <100 mg/dL Near Optimal....... 100-129 mg/dL Borderline High.... 130-159 mg/dL High............... 160-189 mg/dL Very High.......... >=190 mg/dL * Source: National Cholesterol Education Program (NCEP) 41 Elevated levels of HbA1c suggest the need for more aggressive treatment of glycemia. The [place] [employer] recommends that a primary goal of therapy should be a HbA1c of <7% and that physicians should re-evaluate the treatment regimen in patients with HbA1c values consistently >8%. 42 Elevated levels of HbA1c suggest the need for more aggressive treatment of glycemia. The [place] [employer] recommends that a primary goal of therapy should be a HbA1c of <7% and that physicians should re-evaluate the treatment regimen in patients with HbA1c values consistently >8%. 43 I25.5 44 Note: Persistent reduction for 3 months or more in an eGFR <60 mL/min/1.73 m2 defines CKD. Patients with eGFR values >/=60 mL/min/1.73 m2 may also have CKD if evidence of persistent proteinuria is present. The original MDRD equation for estimated GFR is not valid for patients less than 18 years of age. Additional information may be found at [email or web address]. 45 I47.2 46 Reference Guidelines*: Desirable: ........... < 200 mg/dL Borderline High: ..... 200-239 mg/dL High: ................ >=240 mg/dL * The National Cholesterol Education Program (NCEP) 47 Reference Guidelines*: Normal: ............. < 150 mg/dL Borderline High: .... 150-199 mg/dL High: ............... 200-499 mg/dL Very High: .......... > 500 mg/dL * Source: National Cholesterol Education Program (NCEP) 48 Reference Guidelines*: Low HDL: ..... < 40 mg/dL Normal: ..... 40-60 mg/dL Desirable: ... > 60 mg/dL *The National Cholesterol Education Program(NCEP) 49 Reference Guidelines*: Optimal:........... <100 mg/dL Near Optimal....... 100-129 mg/dL Borderline High.... 130-159 mg/dL High............... 160-189 mg/dL Very High.......... >=190 mg/dL * Source: National Cholesterol Education Program (NCEP) 50 Note: Persistent reduction for 3 months or more in an eGFR <60 mL/min/1.73 m2 defines CKD. Patients with eGFR values >/=60 mL/min/1.73 m2 may also have CKD if evidence of persistent proteinuria is present. The original MDRD equation for estimated GFR is not valid for patients less than 18 years of age. Additional information may be found at [email or web address]. 51 N18.3 52 Reference Guidelines*: Desirable: ........... < 200 mg/dL Borderline High: ..... 200-239 mg/dL High: ................ >=240 mg/dL * The National Cholesterol Education Program (NCEP) 53 Reference Guidelines*: Normal: ............. < 150 mg/dL Borderline High: .... 150-199 mg/dL High: ............... 200-499 mg/dL Very High: .......... > 500 mg/dL * Source: National Cholesterol Education Program (NCEP) 54 Reference Guidelines*: Low HDL: ..... < 40 mg/dL Normal: ..... 40-60 mg/dL Desirable: ... > 60 mg/dL *The National Cholesterol Education Program(NCEP) 55 Reference Guidelines*: Optimal:........... <100 mg/dL Near Optimal....... 100-129 mg/dL Borderline High.... 130-159 mg/dL High............... 160-189 mg/dL Very High.......... >=190 mg/dL * Source: National Cholesterol Education Program (NCEP) 56 Note: Persistent reduction for 3 months or more in an eGFR <60 mL/min/1.73 m2 defines CKD. Patients with eGFR values >/=60 mL/min/1.73 m2 may also have CKD if evidence of persistent proteinuria is present. The original MDRD equation for estimated GFR is not valid for patients less than 18 years of age. Additional information may be found at [email or web address]. 57 Note: Persistent reduction for 3 months or more in an eGFR <60 mL/min/1.73 m2 defines CKD. Patients with eGFR values >/=60 mL/min/1.73 m2 may also have CKD if evidence of persistent proteinuria is present. The original MDRD equation for estimated GFR is not valid for patients less than 18 years of age. Additional information may be found at [email or web address]. 58 Reference Guidelines*: Desirable: ........... < 200 mg/dL Borderline High: ..... 200-239 mg/dL High: ................ >=240 mg/dL * The National Cholesterol Education Program (NCEP) 59 Reference Guidelines*: Normal: ............. < 150 mg/dL Borderline High: .... 150-199 mg/dL High: ............... 200-499 mg/dL Very High: .......... > 500 mg/dL * Source: National Cholesterol Education Program (NCEP) 60 Reference Guidelines*: Low HDL: ..... < 40 mg/dL Normal: ..... 40-60 mg/dL Desirable: ... > 60 mg/dL *The National Cholesterol Education Program(NCEP) 61 Reference Guidelines*: Optimal:........... <100 mg/dL Near Optimal....... 100-129 mg/dL Borderline High.... 130-159 mg/dL High............... 160-189 mg/dL Very High.......... >=190 mg/dL * Source: National Cholesterol Education Program (NCEP) 62 QUERY: Reflex add FT3? Y QUERY: Reflex add FT4? Y 63 Elevated levels of HbA1c suggest the need for more aggressive treatment of glycemia. The [place] [employer] recommends that a primary goal of therapy should be a HbA1c of <7% and that physicians should re-evaluate the treatment regimen in patients with HbA1c values consistently >8%. 64 Note: Persistent reduction for 3 months or more in an eGFR <60 mL/min/1.73 m2 defines CKD. Patients with eGFR values >/=60 mL/min/1.73 m2 may also have CKD if evidence of persistent proteinuria is present. The original MDRD equation for estimated GFR is not valid for patients less than 18 years of age. Additional information may be found at [email or web address]. 65 Note: Persistent reduction for 3 months or more in an eGFR <60 mL/min/1.73 m2 defines CKD. Patients with eGFR values >/=60 mL/min/1.73 m2 may also have CKD if evidence of persistent proteinuria is present. The original MDRD equation for estimated GFR is not valid for patients less than 18 years of age. Additional information may be found at [email or web address]. 66 Elevated levels of HbA1c suggest the need for more aggressive treatment of glycemia. The [place] [employer] recommends that a primary goal of therapy should be a HbA1c of <7% and that physicians should re-evaluate the treatment regimen in patients with HbA1c values consistently >8%. 67 Reference Range: <1.0 Negative > or=1.0 Positive Performed at: - [facility] [address] [place] [id number] Salesperson Wigs: Sumanth Alex MD, Phone: [phone] 68 Reference Guidelines*: Desirable: ........... < 200 mg/dL Borderline High: ..... 200-239 mg/dL High: ................ >=240 mg/dL * The National Cholesterol Education Program (NCEP) 69 Reference Guidelines*: Normal: ............. < 150 mg/dL Borderline High: .... 150-199 mg/dL High: ............... 200-499 mg/dL Very High: .......... > 500 mg/dL * Source: National Cholesterol Education Program (NCEP) 70 Reference Guidelines*: Low HDL: ..... < 40 mg/dL Normal: ..... 40-60 mg/dL Desirable: ... > 60 mg/dL *The National Cholesterol Education Program(NCEP) 71 Reference Guidelines*: Optimal:........... <100 mg/dL Near Optimal....... 100-129 mg/dL Borderline High.... 130-159 mg/dL High............... 160-189 mg/dL Very High.......... >=190 mg/dL * Source: National Cholesterol Education Program (NCEP) 72 QUERY: Reflex add FT3? N QUERY: Reflex add FT4? Y 73 C-Peptide reference interval is for fasting patients. 74 Note: Persistent reduction for 3 months or more in an eGFR <60 mL/min/1.73 m2 defines CKD. Patients with eGFR values >/=60 mL/min/1.73 m2 may also have CKD if evidence of persistent proteinuria is present. The original MDRD equation for estimated GFR is not valid for patients less than 18 years of age. Additional information may be found at [email or web address]. 75 Elevated levels of HbA1c suggest the need for more aggressive treatment of glycemia. The [place] [employer] recommends that a primary goal of therapy should be a HbA1c of <7% and that physicians should re-evaluate the treatment regimen in patients with HbA1c values consistently >8%. 76 Reference Guidelines*: Desirable: ........... < 200 mg/dL Borderline High: ..... 200-239 mg/dL High: ................ >=240 mg/dL * The National Cholesterol Education Program (NCEP) 77 Reference Guidelines*: Normal: ............. < 150 mg/dL Borderline High: .... 150-199 mg/dL High: ............... 200-499 mg/dL Very High: .......... > 500 mg/dL * Source: National Cholesterol Education Program (NCEP) 78 Reference Guidelines*: Low HDL: ..... < 40 mg/dL Normal: ..... 40-60 mg/dL Desirable: ... > 60 mg/dL *The National Cholesterol Education Program(NCEP) 79 Reference Guidelines*: Optimal:........... <100 mg/dL Near Optimal....... 100-129 mg/dL Borderline High.... 130-159 mg/dL High............... 160-189 mg/dL Very High.......... >=190 mg/dL * Source: National Cholesterol Education Program (NCEP) 80 Adult male reference interval is based on a population of lean males up to 40 years old. Performed at: RN - [facility] [address] [id number] Salesperson Wigs: Nubia Rocha MD, Phone: [phone] 81 Adult male reference interval is based on a population of lean males up to 40 years old. Performed at: RN - [facility] [address] [id number] Salesperson Wigs: Nubia Rocha MD, Phone: [phone] 82 Note: Persistent reduction for 3 months or more in an eGFR <60 mL/min/1.73 m2 defines CKD. Patients with eGFR values >/=60 mL/min/1.73 m2 may also have CKD if evidence of persistent proteinuria is present. The original MDRD equation for estimated GFR is not valid for patients less than 18 years of age. Additional information may be found at [email or web address]. 83 QUERY: Reflex add FT3? Y QUERY: Reflex add FT4? Y 84 Note: Persistent reduction for 3 months or more in an eGFR <60 mL/min/1.73 m2 defines CKD. Patients with eGFR values >/=60 mL/min/1.73 m2 may also have CKD if evidence of persistent proteinuria is present. The original MDRD equation for estimated GFR is not valid for patients less than 18 years of age. Additional information may be found at [email or web address]. 85 Elevated levels of HbA1c suggest the need for more aggressive treatment of glycemia. The [place] [employer] recommends that a primary goal of therapy should be a HbA1c of <7% and that physicians should re-evaluate the treatment regimen in patients with HbA1c values consistently >8%. 86 Note: Persistent reduction for 3 months or more in an eGFR <60 mL/min/1.73 m2 defines CKD. Patients with eGFR values >/=60 mL/min/1.73 m2 may also have CKD if evidence of persistent proteinuria is present. The original MDRD equation for estimated GFR is not valid for patients less than 18 years of age. Additional information may be found at [email or web address]. 87 Reference Guidelines*: Desirable: ........... < 200 mg/dL Borderline High: ..... 200-239 mg/dL High: ................ >=240 mg/dL * The National Cholesterol Education Program (NCEP) 88 Reference Guidelines*: Normal: ............. < 150 mg/dL Borderline High: .... 150-199 mg/dL High: ............... 200-499 mg/dL Very High: .......... > 500 mg/dL * Source: National Cholesterol Education Program (NCEP) 89 Reference Guidelines*: Low HDL: ..... < 40 mg/dL Normal: ..... 40-60 mg/dL Desirable: ... > 60 mg/dL *The National Cholesterol Education Program(NCEP) 90 Reference Guidelines*: Optimal:........... <100 mg/dL Near Optimal....... 100-129 mg/dL Borderline High.... 130-159 mg/dL High............... 160-189 mg/dL Very High.......... >=190 mg/dL * Source: National Cholesterol Education Program (NCEP) 91 Note: Persistent reduction for 3 months or more in an eGFR <60 mL/min/1.73 m2 defines CKD. Patients with eGFR values >/=60 mL/min/1.73 m2 may also have CKD if evidence of persistent proteinuria is present. The original MDRD equation for estimated GFR is not valid for patients less than 18 years of age. Additional information may be found at [email or web address]. 92 QUERY: Reflex add FT3? Y QUERY: Reflex add FT4? Y 93 pt notified. Synthroid increased to 75 mcg 94 Note: Persistent reduction for 3 months or more in an eGFR <60 mL/min/1.73 m2 defines CKD. Patients with eGFR values >/=60 mL/min/1.73 m2 may also have CKD if evidence of persistent proteinuria is present. The original MDRD equation for estimated GFR is not valid for patients less than 18 years of age. Additional information may be found at [email or web address]. 95 Reference Guidelines*: Desirable: ........... < 200 mg/dL Borderline High: ..... 200-239 mg/dL High: ................ >=240 mg/dL * The National Cholesterol Education Program (NCEP) 96 Reference Guidelines*: Normal: ............. < 150 mg/dL Borderline High: .... 150-199 mg/dL High: ............... 200-499 mg/dL Very High: .......... > 500 mg/dL * Source: National Cholesterol Education Program (NCEP) 97 Reference Guidelines*: Low HDL: ..... < 40 mg/dL Normal: ..... 40-60 mg/dL Desirable: ... > 60 mg/dL *The National Cholesterol Education Program(NCEP) 98 Reference Guidelines*: Optimal:........... <100 mg/dL Near Optimal....... 100-129 mg/dL Borderline High.... 130-159 mg/dL High............... 160-189 mg/dL Very High.......... >=190 mg/dL * Source: National Cholesterol Education Program (NCEP) 99 QUERY: Reflex add FT3? Y QUERY: Reflex add FT4? Y 100 Tests: ck and MB fraction Instructions: Procedures Date Code Description Status 12/15/2018 15265 Cardioversion/Defibril. Single Lead Pacemaker Completed 08/25/2018 46739 Cardioversion/Defibril. Single Lead Pacemaker Completed 05/14/2018 92515 Echocardiogram Complete Completed 05/06/2018 08787 Cardioversion/Defibril. Single Lead Pacemaker Completed 05/06/2018 61616 EKG-Tracing And Report Completed 02/05/2018 [id number] Diabetic Foot Exam Completed 02/05/2018 94381 Pare Hyperkeratotic Lesion, Single Completed 11/05/2017 97750 Pare Hyperkeratotic Lesion, Single Completed 10/29/2017 62657 Dual Pacemaker Programming Anayisis, Review And Report Completed 08/14/2017 46594 Pare Hyperkeratotic Lesion, Single Completed 07/16/2017 53242 Myocardial Imaging Tomographic Multiple Study AT Rest Completed Or Stress 07/16/2017 90597 Stress Test Interpre And Report Only Completed 07/16/2017 91306 Stress Test Physician Super Only Completed 05/13/2017 83989 Echocardiogram Complete Completed 02/25/2017 63883 Cardioversion/Defibril. Single Lead Pacemaker Completed 02/25/2017 03630 Cardioversion/Defibril. Single Lead Pacemaker Completed 02/04/2017 47526 EKG-Tracing And Report Completed 10/30/2016 34737 Cardioversion/Defibril. Single Lead Pacemaker Completed 10/30/2016 39180 Cardioversion/Defibril. Single Lead Pacemaker Completed 06/26/2016 34999 Cardioversion/Defibril. Single Lead Pacemaker Completed 06/26/2016 55946 Cardioversion/Defibril. Single Lead Pacemaker Completed 06/11/2016 64803 Myocardial Imaging Tomographic Multiple Study AT Rest Completed Or Stress 06/11/2016 31525 Echocardiogram Complete Completed 06/11/2016 67294 Stress Test Interpre And Report Only Completed 06/11/2016 12365 Stress Test Physician Super Only Completed 11/28/2015 03534 Cardioversion/Defibril. Single Lead Pacemaker Completed 11/22/2015 29727 Bronchospasm Provocation Evaluation Multi Spirometric Completed Determinati 11/22/2015 41128 Spirometry Completed 11/19/2015 74408 EKG Interpretation And Report Only Completed 10/28/2015 62185 Glucose Monitoring Interpetation And Report Completed 08/20/2015 77821 Echocardiogram Complete Completed 08/18/2015 33942 EKG Interpretation And Report Only Completed 06/27/2015 34878 Cardioversion/Defibril. Single Lead Pacemaker Completed 06/27/2015 87392 Cardioversion/Defibril. Single Lead Pacemaker Completed 06/27/2015 40734 EKG-Tracing And Report Completed 04/17/2015 16372 Cardioversion/Defibril. Single Lead Pacemaker Completed 04/02/2015 25 Disability Form Completed 03/05/2015 68658 Echocardiogram Complete Completed 03/05/2015 15408 Stress Test Interpre And Report Only Completed 03/05/2015 96665 Stress Test Physician Super Only Completed 03/05/2015 95846 Stress Test Physician Super Only Completed 03/05/2015 25506 Myocardial Imaging Tomographic Multiple Study AT Rest Completed Or Stress 03/01/2015 69328 EKG-Tracing And Report Completed 02/21/2015 44607 Cardioversion/Defibril. Single Lead Pacemaker Completed 02/21/2015 27658 Cardioversion/Defibril. Single Lead Pacemaker Completed 12/16/2014 47800 Echocardiogram Complete Completed 12/11/2014 39102 EKG-Tracing And Report Completed 10/20/2014 34664 EKG Interpretation And Report Only Completed 10/20/2014 49842 Echocardiogram Complete Completed 05/13/2011 87582 Radiology, Knee 3 Views Completed 05/13/2011 66241 Radiology, L-S Spine 2 Or 3 Views Completed 03/17/2009 80383 Echocardiogram Complete Completed Encounters Type Date Location Provider Dx Diagnosis Office Visit 12/13/2018 Family Efrain Sampson MD E78.5 Hyperlipidemia, 9:00a Srinath LAW unspecified E11.9 Type 2 diabetes mellitus without complications E03.9 Hypothyroidism, unspecified N18.9 Chronic kidney disease, unspecified 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] M25.511 Pain in right shoulder Office Visit 10/19/2018 10:40a Cardiology Wm, I25.5 Ischemic Office Tigist Powell, cardiomyopathy PA Z95.810 Presence of automatic (implantable) cardiac defibrillator I47.2 Ventricular tachycardia E78.5 Hyperlipidemia, unspecified I10 Essential (primary) hypertension Office Visit 09/13/2018 8:30a Family Efrain Sampson, E11.9 Type 2 diabetes Srinath LAW MD mellitus without complications E03.9 Hypothyroidism, unspecified N18.9 Chronic kidney disease, unspecified M25.511 Pain in right shoulder Office Visit 08/12/2018 3:00p Efrain Banks E03.[address], MD unspecified R06.02 Shortness of breath M25.511 Pain in right shoulder E11.9 Type 2 diabetes mellitus without complications Office Visit 06/28/2018 8:30a Family Efrain Velasco MD M54.[address] M25.511 Pain in right shoulder E78.5 Hyperlipidemia, unspecified E03.9 Hypothyroidism, unspecified E11.65 Type 2 diabetes mellitus with hyperglycemia Office Visit 05/06/2018 11:00a Cardiology Office Wm, I25.10 [facility] ABEL Mullins 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 mellitus without complications E78.5 Hyperlipidemia, unspecified E03.9 Hypothyroidism, unspecified N18.3 Chronic kidney disease, stage 3 (moderate) L84 Corns and callosities Office Visit 11/05/2017 10:45a Family Medicine Sanjuana Carbone, E11.9 Type [address] M.D[address] 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 callosities E11.9 Type 2 diabetes mellitus without complications Office Visit 08/06/2017 10:30a Family Medicine Sanjuana Carbone, Z23 Encounter for West RD M.D. 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 mellitus without complications E03.9 Hypothyroidism, unspecified I10 Essential (primary) hypertension E78.5 Hyperlipidemia, unspecified Office Visit 03/05/2017 2:30p [facility] Sanjuana Carbone, R06.[address] [place] [address] M.D. 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 Office Visit 06/18/2016 1:50p Cardiology Office Bia Todd I25.5 Ischemic MD cardiomyopathy I50.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 I47.2 Ventricular tachycardia Z95.810 Presence of automatic (implantable) cardiac defibrillator N18.3 Chronic kidney disease, stage 3 (moderate) 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 Office Visit 06/04/2016 3:30p Cardiology Office Bia Todd I25.5 Ischemic MD cardiomyopathy I50.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 I47.2 Ventricular tachycardia Z95.810 Presence of automatic (implantable) cardiac defibrillator N18.3 Chronic kidney disease, stage 3 (moderate) Office Visit 03/04/2016 8:00a Cardiology Office Bia Todd, I25.5 Ischemic MD cardiomyopathy I50.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 I47.2 Ventricular tachycardia Z95.810 Presence of automatic (implantable) cardiac defibrillator E10.65 Type 1 diabetes mellitus with hyperglycemia N18.3 Chronic kidney disease, stage 3 (moderate) E03.9 Hypothyroidism, unspecified I95.1 Orthostatic hypotension Office Visit 01/02/2016 10:00a Cardiology Office Bia Todd, I25.5 Ischemic MD cardiomyopathy I50.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 I47.2 Ventricular tachycardia Z95.810 Presence of automatic (implantable) cardiac defibrillator R06.02 Shortness of breath I10 Essential (primary) hypertension N18.3 Chronic kidney disease, stage 3 (moderate) 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 R00.1 Bradycardia, unspecified Office Visit 11/28/2015 10:00a Cardiology Office Bia Todd, I25.5 Ischemic MD cardiomyopathy I50.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 I47.2 Ventricular tachycardia Z95.810 Presence of automatic (implantable) cardiac defibrillator E10.65 Type 1 diabetes mellitus with hyperglycemia R06.02 Shortness of breath I10 Essential (primary) hypertension Office Visit 11/19/2015 11:21a Cardiology Office Bia Todd, I47.2 Ventricular MD tachycardia I50.9 Heart failure, unspecified 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 Z95.810 Presence of automatic (implantable) cardiac defibrillator I49.01 Ventricular fibrillation I10 Essential (primary) hypertension R42 Dizziness and giddiness R07.9 Chest pain, unspecified E11.9 Type 2 diabetes mellitus without complications Office Visit 08/20/2015 Cardiology Dilan Skinner R07.9 Chest pain, 9:37a Office Marcia Ríos, [facility] unspecified Office Visit 08/18/2015 [place] Brandee Chao, R07.9 Chest pain, 11:25a [facility] unspecified Center Office Visit 06/27/2015 Cardiology Bia Todd MD I25.5 Ischemic 10:30a Office cardiomyopathy I49.01 Ventricular fibrillation 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 Z95.810 Presence of automatic (implantable) cardiac defibrillator I10 Essential (primary) hypertension R42 Dizziness and giddiness 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 Office Visit 05/16/2015 2:30p Cardiology Office Bia Todd, I25.5 Ischemic cardiomyopathy 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 Z95.810 Presence of automatic (implantable) cardiac defibrillator I49.01 Ventricular fibrillation I10 Essential (primary) hypertension R53.82 Chronic fatigue, unspecified 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 N19 Unspecified kidney failure Office Visit 04/17/2015 Cardiology Bia Todd, 414.01 Coronary 2:30p Office MD Atherosclerosis [place] 427.41 Ventricular Fibrillation V45.02 Cardiac Defibrillator Automatic Implantable Postsurgical 428.0 Congestive Heart Failure Unspecified 401.1 Hypertension Benign Office Visit 03/01/2015 9:00a Cardiology Office Bia Todd, 427.41 Ventricular MD Fibrillation V45.02 Cardiac Defibrillator Automatic Implantable Postsurgical 428.0 Congestive Heart Failure Unspecified 414.01 Coronary Atherosclerosis [place] 786.05 Shortness Of Breath Office Visit 01/15/2015 3:30p Cardiology Office Bia Todd, 428.0 Congestive Heart MD Failure Unspecified 414.01 Coronary Atherosclerosis [place] V45.02 Cardiac Defibrillator Automatic Implantable Postsurgical 427.41 Ventricular Fibrillation Office Visit 12/11/2014 1:30p Cardiology Office Bia Todd, 410.90 Myocardial Infarc MD Acute Unspec Site Episode Care Unspec 425.4 Cardiomyopathy Other Prim 428.0 Congestive Heart Failure Unspecified 414.01 Coronary Atherosclerosis [place] 401.1 Hypertension Benign V45.02 Cardiac Defibrillator Automatic Implantable Postsurgical 427.41 Ventricular Fibrillation 586 Renal Failure Unspec 244.9 Hypothyroidism Other Unspec Office Visit 10/20/2014 Cardiology Office Bia Todd, 410.90 Myocardial Infarc 9:40a MD Acute Unspec Site Episode Care Unspec Office Visit 10/18/2014 [facility] Vandoren, 558.9 Gastroenteritis & 9:43a [facility] Benito Martinez., DO Colitis Noninfectious Other Office Visit 05/13/2011 [facility], 719.46 Pain Joint Lower Leg 9:00a Office Leighton Yanes MD Plan of Treatment Future Appointment(s):06/21/2019 9:30 am - Annamaria Jimenez MD at [facility] [id number]/20/2019 10:30 am - Tigist Burk PA at Cardiology [id number] 3:30 pm - Efrain Mccloud MD at [facility]03/16/2019 9:00 am - Efrain Mccloud MD at [facility]04/25/2019 2:00 pm - Bia Todd MD at Cardiology [id number]/20/2018 - Annamaria Jimenez, MD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]
--- OUTSIDE RECORDS SUMMARY | 2018-12-22 21:39 | XMS REPORT | Continuity of Care Document ---
:1975 External Reference #:[id number] Author Name Efrain Mccloud MD Address [address] [place] [address] Care Team Providers Name Role Phone Efrain Mccloud MD Care Team Information House Painter Helper Unavailable Efrain Mccloud MD Primary Care Physician Unavailable Payers Date Identification Numbers Payment Provider Subscriber Policy Number: [id number] Medicare Yoni Bowser PayID: [id number] [address] [place] [address] Expires: 2018 Policy Number: [id number] Medicare Yoni Bowser PayID: [id number] [address] [place] [address] Advance Directives Description No Information Available Problems Active Problems Provider Date Arthralgia of the lower leg Legihton Quezada MD Onset: 05/13/2011 Mixed hyperlipidemia Bia [...] PA Onset: 05/06/2018 Atherosclerotic heart disease of [place] Tigist Burk PA Onset: 2017 coronary artery [...] follows no dietary restrictions Occupation Truck Escort ADL's/IADL's Independent with all ADL's Tobacco Use Start: Unknown End: Quit Unknown Cigarette Use Pack Years - 25 Smoking Status Reviewed: 12/13/18 Quit ETOH Use Denies alcohol use Recreational [...] Misc Multilex take 1 tablet by 100tabs Ramesh, 01/12/2018 Tablets mouth once daily BAUDILIO Montano BD Pen place on flexpen for 100units Efrain Mccloud, 11/05/2017 Needle/Laura/Ultra injection once Fine/32G X 4mm daily. one time use 32G X 4 mm Misc Clopidogrel take 1 tablet by 90tabs Efrain Mccloud, 10/15/2017 Bisulfate mouth once daily 75mg Tablets Novolog Flexpen inject 8 units 15units E11.9 Efrain Mccloud, 08/07/2017 subcutaneously three 100Unit/ML Solution times daily with Pen-Inject meals [...] Mouth Twice Daily Dilan Ríos, Tablets M.D., [facility] Aspirin Ec 1 po qd 90tabs Sanjunaa aCrbone, 81mg M.D. Tablets DR Atorvastatin Calcium 1 by mouth every day 90tabs Efrain Mccloud, 80mg Tablets History Medications Ventolin HFA 2 puffs q4-6 8gm R06.02 Efrain Mccloud, 08/12/2018 - 108(90Base) hours as needed Unknown mcg/Act Aerosol Magnesium Oxide take one tablet 60tabs Ramesh, 01/12/2018 - by [facility] 08/06/2018 400(240mg) mg Tablets daily [employer] Magnesium Oxide Take One Tablet 60tabs Sanjuana Carbone, 10/15/2017 - By Mouth Twice M.D. Unknown 400(240mg) mg Tablets Daily Lantus Solostar inject 55 units 15units Efrain Mccloud, 08/07/2017 - every night at 08/12/2018 100Unit/ML Solution bedtime Pen-Inject BD Pen place on flexpen 90units Sanjuana Carbone, 05/20/2017 - Needle/Laura/Ultra for injection M.D. 01/28/2018 Fine/32G X once daily. one [id number] time use Levothyroxine Sodium 1 by mouth every Bia Todd, 10/24/2015 - day Unknown 112mcg Tablets Levothyroxine Sodium 1 by mouth every 90tabs Ramesh, 10/24/2015 - day Charmaine, 06/28/2018 112mcg Tablets [employer] Entresto 1 by mouth twice 60tabs Bia Todd, 10/01/2015 - 24-26mg Tablets a day Unknown Metoprolol Succinate take 1 tablet 30tabs Bia Todd, 04/17/2015 - ER once daily in in MD 05/16/2015 50mg Tablets ER 24HR the morning [...] Tablets a day Dilan Ríos, 10/30/2016 M.D., [facility] Spironolactone 1 by mouth every Unknown - [...] CPT Code Status Date Vaccine Lot # [id number] Given 08/06/2017 Influenza Virus Vaccine Quadrivalent Iiv4 Split [id number] Preser Free Id [id number] Refused 04/22/2017 Influenza Vaccine (Fluzone) Age 3 And Older Vital Signs Date Vital Result Comment 12/13/2018 8:47am BP Systolic Sitting Left Arm [...] kg/m2 BSA (Body Surface Area) 2.31 m2 [place] body weight in kilograms 78 kg O2 Saturation Level with Exercise 97 % 09/13/2018 8:19am BP Systolic 130 mmHg BP Diastolic 78 mmHg Body Temperature 97.5 F Heart Rate 77 /min Respiratory Rate 18 /min Height 71 inches 5'11" Weight 237.00 lb BMI (Body Mass Index) 33.1 kg/m2 BSA (Body Surface Area) 2.27 m2 [place] body weight in kilograms 78 kg O2 % BldC Oximetry 97 % 08/12/2018 2:48pm BP Systolic Sitting Left Arm 102 mmHg BP Diastolic Sitting Left Arm 64 mmHg Body Temperature 98.2 F Heart Rate 71 /min Respiratory Rate 16 /min Height 71 inches 5'11" Weight 234.00 lb BMI (Body Mass Index) 32.6 kg/m2 BSA (Body Surface Area) 2.25 m2 [place] body weight in kilograms 78 kg O2 % BldC Oximetry 98 % 06/28/2018 8:26am BP Systolic Sitting Left Arm 122 mmHg BP Diastolic Sitting Left Arm 72 mmHg Heart Rate 68 /min Respiratory Rate 18 /min Height 71 inches 5'11" Weight 241.00 lb BMI (Body Mass Index) 33.6 kg/m2 BSA (Body Surface Area) 2.28 m2 [place] body weight in kilograms 78 kg 05/06/2018 10:51am BP Systolic Sitting Left Arm 118 mmHg BP Diastolic Sitting Left Arm 74 mmHg Heart Rate 64 /min Respiratory Rate 16 /min Height 71 inches 5'11" Weight 237.00 lb BMI (Body Mass Index) 33.1 kg/m2 BSA (Body Surface Area) 2.27 m2 [place] body weight in kilograms 78 kg O2 % BldC Oximetry 97 % Room air 02/05/2018 10:53am BP Systolic 112 mmHg BP Diastolic 64 mmHg Body Temperature 96.9 F Heart Rate 60 /min Respiratory Rate 18 /min Height 71 inches 5'11" Weight 234.00 lb BMI (Body Mass Index) 32.6 kg/m2 BSA (Body Surface Area) 2.25 m2 [place] body weight in kilograms 78 kg O2 [...] kg/m2 BSA (Body Surface Area) 2.25 m2 [place] body weight in kilograms 75 kg 08/14/2017 9:47am BP Systolic 102 mmHg BP Diastolic 72 mmHg Body Temperature 96.6 F Heart Rate 69 /min Height 70 inches 5'10" Weight 234.00 lb BMI (Body Mass Index) 33.6 kg/m2 BSA (Body Surface Area) 2.23 m2 [place] body weight in kilograms 75 kg O2 % BldC Oximetry 96 % 08/06/2017 10:32am BP Systolic 106 mmHg BP Diastolic 66 mmHg Body Temperature 97.9 F Heart Rate 70 /min Height 70 inches 5'10" Weight 235.00 lb BMI (Body Mass Index) 33.7 kg/m2 BSA (Body Surface Area) 2.24 m2 [place] body weight in kilograms 75 kg O2 % BldC Oximetry 96 % 05/27/2017 10:56am BP Systolic Sitting Left Arm 106 mmHg BP Diastolic Sitting Left Arm 70 mmHg Heart Rate 60 /min Respiratory Rate 16 /min Height 70 inches 5'10" Weight 229.00 lb BMI (Body Mass Index) 32.9 kg/m2 BSA (Body Surface Area) 2.21 m2 [place] body weight in kilograms 75 kg 04/22/2017 10:15am BP Systolic Sitting Right Arm 112 mmHg BP Diastolic Sitting Right Arm 72 mmHg Height 70 inches 5'10" Weight 237.12 lb BMI (Body Mass Index) 34.0 kg/m2 BSA (Body Surface Area) 2.24 m2 [place] body weight in kilograms 75 kg 03/05/2017 2:42pm BP Systolic Sitting Right Arm 122 mmHg BP Diastolic Sitting Right Arm 76 mmHg Heart Rate 98 /min Height 69 inches 5'9" Weight 229.25 lb BMI (Body Mass Index) 33.9 kg/m2 BSA (Body Surface Area) 2.19 m2 [place] body weight in kilograms 73 kg 02/04/2017 1:39pm BP Systolic Sitting Left Arm 110 mmHg BP Diastolic Sitting Left Arm 82 mmHg Heart Rate 60 /min Respiratory Rate 16 /min Height 69 inches 5'9" Weight 227.00 lb BMI (Body Mass Index) 33.5 kg/m2 BSA (Body Surface Area) 2.18 m2 [place] body weight in kilograms 73 kg 01/20/2017 11:34am BP Systolic 116 mmHg BP Diastolic 62 mmHg Body Temperature 97.4 F Heart Rate 70 /min Height 69 inches 5'9" Weight 227.50 lb BMI (Body Mass Index) 33.6 kg/m2 BSA (Body Surface Area) 2.18 m2 [place] body weight in kilograms 73 kg 09/24/2016 [...] Test Result H/L Range Note Glycohemoglobin A1c [address] Glycohemoglobin 9.4 % High 4.2-6.3 1, [address] [place] [address] (A1c) [place] [address] [phone] eAG 223 mg/dL LDL Cholesterol Profile 12/13/[address] Cholesterol 111 mg/dL <[address] [place] [address] [phone] Triglycerides 122 mg/dL <150 4 HDL Cholesterol 36 mg/dL Low >40 5 LDL-Cholesterol 51 mg/dL < 100 6 Glycohemoglobin 09/13/[address] Glycohemoglobin 7.9 % High 4.2-6.3 [address] [place] [address] (A1c) [place] [address] [phone] eAG 180 mg/dL TSH Reflex FT4 08/12/[address] Thyroid Stim 3.89 uIU/mL N 0.30-4.20 8 And/Or FT3 [address] [place] [address] [place] [address] [phone] Reflex add FT3? Y Reflex add FT4? Y Magnesium 08/12/[address] Magnesium 2.4 mg/dL N 1.8-2.[address] [place] [address] [phone] Reflex add FT3? Y Reflex add FT4? Y CBC W/Automated Diff 06/28/[address] White Blood 6.3 K/uL N 3.4-10.[address] [place] [address] Count [place], [place] [address]95 [phone] Red Blood Count 4.52 M/uL N 4.20-5.80 [...] 33.0-73.0 Lymph % 26.6 % N 20.0-42.0 [place] % 9.4 % N 0.0-10.0 Eo% 1.6 % N 0.0-6.6 Bas% 0.5 % N 0.0-1.1 Neut# 3.89 K/uL N 1.8-7.0 Lymph # 1.67 K/uL N 1.0-4.0 [place] # 0.59 K/uL N 0.0-0.8 Eos # 0.10 K/uL N 0.0-0.5 Baso # 0.03 K/uL N 0.0-0.1 Laboratory test 06/28/[address] Thyroid Stim 22.30 High 0.30- 4.[address] [facility] Hormone uIU/[place] [address] [phone] Glycohemoglobin 06/28/[address] Glycohemoglobin 8.4 % High 4.2-6.[address] [facility] (A1c) [place] [address] [phone] eAG 194 mg/dL Comprehensive Metabolic 06/28/[address] Glucose 168 mg/dL High 74-106 Panel [address] [place] [address] [phone] BUN 24 mg/dL High 7-18 Creatinine 1.9 [...] Phosphatase 115 U/L N 45-117 Microalbumin,Random 06/28/[address] [facility] [address] Microalbumin,Urine 6.4 < 20.[address] mg/[place] [address] [phone] LDL Cholesterol 06/28/2018 [facility] [address] Cholesterol 113 <200 [address] mg/[place] [address] [phone] Triglycerides 109 mg/dL <150 13 HDL Cholesterol 39 mg/dL Low >40 14 LDL-Cholesterol 52 mg/dL < 100 15 Laboratory test 05/14/2018 [facility] Magnesium 2.5 mg/dL High 1.8-2.4 [address] [place] [address] [phone] CBC W/Automated 05/14/2018 [facility] White Blood 5.5 K/uL N 3.4-10.[address] [place] [address] [phone] Red Blood Count 4.62 M/uL N 4.20-5.80 [...] 33.0-73.0 Lymph % 25.6 % N 20.0-42.0 [place] % 10.5 % High 0.0-10.0 Eo% 1.8 % N 0.0-6.6 Bas% 0.5 % N 0.0-1.1 Neut# 3.41 K/uL N 1.8-7.0 Lymph # 1.42 K/uL N 1.0-4.0 [place] # 0.58 K/uL N 0.0-0.8 Eos # 0.10 K/uL N 0.0-0.5 Baso # 0.03 K/uL N 0.0-0.1 Comprehensive Metabolic 05/14/2018 [facility] Glucose 171 mg/dL High 74-106 Panel [address] [place] [address] [phone] BUN 25 mg/dL High 7-18 Creatinine 1.8 [...] U/L N 45-117 LDL Cholesterol Profile 05/14/2018 [facility] Cholesterol 90 mg/dL <[address] [place] [address] [phone] Triglycerides 102 mg/dL <150 19 HDL Cholesterol 37 mg/dL Low >40 20 LDL-Cholesterol 33 mg/dL < 100 21 Glycohemoglobin 05/14/2018 [facility] Glycohemoglobin 7.9 % High 4.2-6.3 [address] (A1c) [place] [address] [phone] eAG 180 mg/dL Glycohemoglobin 02/05/2018 [facility] Glycohemoglobin 7.1 % High 4.2-6.3 23, A1c [address] (A1c) 24 [place], [place] [address] [phone] eAG 157 mg/dL Microalb/Creat 02/05/2018 [facility] Microalbumin,Urine 7.1 mg/L < 20.0 Ratio,Random [address] [place], [place] [address] [phone] Microalbumin/Creatinine Ratio 24.5 ug/mgCrt < 30.0 Urine Creatinine Conc 29 mg/dL Basic Metabolic Panel 02/05/2018 [facility] Glucose 182 mg/dL High 74-[address] [place], [place] [address] [phone] BUN 29 mg/dL High 7-18 Creatinine 1.8 mg/dL High 0.6-1.3 Glom Filtration Rate, Estimate 44 mL/min >60 If 53 mL/min >60 25 BUN/Creat 16.1 ratio Sodium 137 mmol/L N 136-145 Potassium 4.3 mmol/L N 3.5-5.1 Chloride 101 mmol/L N 98-107 Carbon Dioxide 26 mmol/L N 21-32 Anion Gap 10 mEq/L N 8-16 Calcium 8.9 mg/dL N 8.5-10.1 Glycohemoglobin 11/05/2017 [facility] Glycohemoglobin 7.6 % High 4.2-6.3 26, A1c [address] (A1c) 27 [place], [place] [address] [phone] eAG 171 mg/dL CBS W/Automated Diff 11/05/2017 [facility] White Blood 5.7 K/uL N 3.4-10.[address] [place] [address] [phone] Red Blood Count 4.37 M/uL N 4.20-5.80 [...] 33.0-73.0 Lymph % 28.1 % N 20.0-42.0 [place] % 8.8 % N 0.0-10.0 Eo% 1.4 % N 0.0-6.6 Bas% 0.7 % N 0.0-1.1 Neut# 3.45 K/uL N 1.8-7.0 Lymph # 1.59 K/uL N 1.0-4.0 [place] # 0.50 K/uL N 0.0-0.8 Eos # 0.08 K/uL N 0.0-0.5 Baso # 0.04 K/uL N 0.0-0.1 Comprehensive Metabolic 11/05/2017 [facility] Glucose 111 mg/dL High 74-[address] [place] [address] [phone] BUN 26 mg/dL High 7-18 Creatinine 1.8 [...] add FT4? Y LDL Cholesterol Profile 11/05/2017 [facility] Cholesterol 89 mg/dL <200 29 [address] [place], [place] [address] [phone] Triglycerides 67 mg/dL <150 30 HDL Cholesterol 40 mg/dL >40 31 LDL-Cholesterol 36 mg/dL < 100 32 Reflex add FT3? Y Reflex add FT4? Y TSH Reflex FT4 11/05/2017 [facility] Thyroid Stim 2.15 uIU/mL N 0.30-4.20 And/Or FT3 [address] [facility] Hormone [place], [place] [address] [phone] Reflex add FT3? Y Reflex add FT4? Y Magnesium 11/05/2017 [facility] Magnesium 2.5 mg/dL High 1.8-2.4 [address] [place], [place] [address] [phone] Reflex add FT3? Y Reflex add FT4? Y Rapid 08/28/2017 [facility] Influenza A POSITIVE Abnormal Negative 33 Influenza A & [phone] Molecular B Molecular Influenza B Molecular NEGATIVE Negative Basic Metabolic Panel 08/06/2017 [facility] Glucose 129 mg/dL High 74-106 34 [address] [place], [place] [address] [phone] BUN 24 mg/dL High 7-18 Creatinine 1.9 mg/dL High 0.6-1.3 Glom Filtration Rate, Estimate 41 mL/min >60 If 50 mL/min >60 35 BUN/Creat 12.6 ratio Sodium 138 mmol/L N 136-145 Potassium 4.1 mmol/L N 3.5-5.1 Chloride 101 mmol/L N 98-107 Carbon Dioxide 30 mmol/L N 21-32 Anion Gap 7 mEq/L Low 8-16 Calcium 9.0 mg/dL N 8.5-10.1 Glycohemoglobin 08/06/2017 [facility] Glycohemoglobin 7.7 % High 4.2-6.[address] (A1c) [place], [place] [address] [phone] eAG 174 mg/dL LDL Cholesterol Profile 08/06/2017 [facility] Cholesterol 91 mg/dL <[address] [place], [place] [address] [phone] Triglycerides 97 mg/dL <150 38 HDL Cholesterol 35 mg/dL Low >40 39 LDL-Cholesterol 37 mg/dL < 100 40 Glycohemoglobin 04/22/2017 [facility] Glycohemoglobin 7.3 % High 4.2-6.3 [address] (A1c) [place], [place] [address] [phone] eAG 163 mg/dL Glycohemoglobin 01/20/2017 [facility] Glycohemoglobin 7.3 % High 4.2-6.3 [address] (A1c) [place], [place] [address] [phone] eAG 163 mg/dL Microalb/Creat 01/20/2017 [facility] Microalbumin,Urine < 6.0 < 20.0 Ratio,Random [address] mg/[place] [address] [phone] Microalbumin/Creatinine Ratio 5.9 ug/mgCrt < 30.0 Urine Creatinine Conc 102 mg/dL Basic Metabolic Panel 12/18/2016 [facility] Glucose 115 mg/dL High 74-[address] [place], [place] [address] [phone] BUN 32 mg/dL High 7-18 Creatinine 1.9 mg/dL High 0.6-1.3 Glom Filtration Rate, Estimate 41 mL/min >60 If 50 mL/min >60 44 BUN/Creat 16.8 ratio Sodium 139 mmol/L N 136-145 Potassium 3.8 mmol/L N 3.5-5.1 Chloride 101 mmol/L N 98-107 Carbon Dioxide 32 mmol/L N 21-32 Anion Gap 6 mEq/L Low 8-16 Calcium 9.1 mg/dL N 8.5-10.1 LDL Cholesterol 09/25/2016 [facility] Cholesterol 95 mg/dL <200 45, 46 Profile [address] [place] [address] [phone] Triglycerides 80 mg/dL <150 47 HDL Cholesterol 38 mg/dL Low >40 48 LDL-Cholesterol 41 mg/dL < 100 49 Reflex add FT3? Y Reflex add FT4? Y Comprehensive Metabolic 09/25/2016 [facility] Glucose 179 mg/dL High 74-106 Panel [address] [place], [place] [address] [phone] BUN 20 mg/dL High 7-18 Creatinine 1.8 [...] add FT4? Y CBS W/Automated Diff 09/25/2016 [facility] White Blood 5.8 K/uL N 3.4-10.[address] [place] [address] [phone] Red Blood Count 4.39 M/uL N 4.20-5.80 [...] 33.0-73.0 Lymph % 27.1 % N 20.0-42.0 [place] % 7.4 % N 0.0-10.0 Eo% 1.2 % N 0.0-6.6 Bas% 0.5 % N 0.0-1.1 Neut# 3.70 K/uL N 1.8-7.0 Lymph # 1.57 K/uL N 1.0-4.0 [place] # 0.43 K/uL N 0.0-0.8 Eos # 0.07 K/uL N 0.0-0.5 Baso # 0.03 K/uL N 0.0-0.1 TSH Reflex FT4 09/25/2016 [facility] Thyroid Stim 1.28 uIU/mL N 0.30-4.20 And/Or FT3 [address] [place] [address] [phone] Reflex add FT3? Y Reflex add FT4? Y LDL Cholesterol 06/18/2016 [facility] Cholesterol 94 mg/dL N <200 51, 52 Profile [address] [place] [address] [phone] Triglycerides 88 mg/dL N <150 53 HDL Cholesterol 36 mg/dL Low >40 54 LDL-Cholesterol 40 mg/dL N < 100 55 Basic Metabolic Panel 06/18/2016 [facility] Glucose 142 mg/dL High 74-106 [address] [place] [address] [phone] BUN 23 mg/dL High 7-18 Creatinine 1.8 mg/dL High 0.6-1.3 Glom Filtration Rate, Estimate 44 mL/min N >60 If 53 mL/min N >60 56 BUN/Creat 12.7 ratio N Sodium 137 mmol/L N 136-145 Potassium 4.3 mmol/L N 3.5-5.1 Chloride 101 mmol/L N 98-107 Carbon Dioxide 29 mmol/L N 21-32 Anion Gap 7 mEq/L Low 8-16 Calcium 9.0 mg/dL N 8.5-10.1 Laboratory test 03/04/2016 [facility] Magnesium 2.2 mg/dL 1.8-2.4 finding [address] [place] [address] [phone] Comprehensive 03/04/2016 [facility] Glucose 192 mg/dL High 74-106 Metabolic Panel [address] [place] [address] [phone] BUN 22 mg/dL High 7-18 Creatinine 2.2 [...] U/L High 45-117 LDL Cholesterol Profile 03/04/2016 [facility] Cholesterol 99 mg/dL <200 58 [address] [place] [address] [phone] Triglycerides 132 mg/dL <150 59 HDL Cholesterol 35 mg/dL Low >40 60 LDL-Cholesterol 38 mg/dL < 100 61 CBC W/Automated Diff 03/04/2016 [facility] White Blood 6.0 K/uL 3.4-10.5 [address] [place] [address] [phone] Red Blood Count 4.43 M/uL 4.20-5.80 Hemoglobin [...] % 33.0-73.0 Lymph % 29.0 % 17.0-56.0 [place] % 9.1 % 0.0-10.0 Eo% 1.7 % 0.0-5.0 Bas% 0.3 % 0.1-1.0 Neut# 3.62 K/uL 1.8-7.0 Lymph # 1.75 K/uL Low 1.8-7.0 [place] # 0.55 K/uL 0.0-0.8 Eos # 0.10 K/uL 0.0-0.5 Baso # 0.02 K/uL Low 0.1-0.2 Laboratory test 03/04/2016 [facility] TSH Reflex FT4 1.77 0.30-4.[address] and/or FT3 uIU/mL [place], [place] [address] [phone] Glycohemoglobin 03/04/2016 [facility] Glycohemoglobin 7.7 % High 4.2-6.3 [address] (A1c) [place] [address] [phone] eAG 174 mg/dL Basic Metabolic Panel 01/11/2016 [facility] Glucose 137 mg/dL High 74-[address] [place] [address] [phone] BUN 39 mg/dL High 7-18 Creatinine 2.4 mg/dL High 0.6-1.3 Glom Filtration Rate, Estimate 32 mL/min >60 If 38 mL/min >60 64 BUN/Creat 16.2 ratio Sodium 136 mmol/L 136-145 Potassium 4.3 mmol/L 3.5-5.1 Chloride 103 mmol/L 98-107 Carbon Dioxide 25 mmol/L 21-32 Anion Gap 8 mEq/L 8-16 Calcium 8.8 mg/dL 8.5-10.1 Laboratory test 01/11/2016 [facility] Magnesium 2.4 mg/dL 1.8-2.4 finding [address] [place] [address] [phone] Laboratory test 11/20/2015 N2N/CCD Import Miscellaneous Test(s) [...] Blood Count 4.3 3.4-10.5 Laboratory test 11/19/2015 N2N/CCD Import Urine Bilirubin Negative Negative finding Urine Blood Negative Negative Urine Clarity Clear Clear Urine Color Yellow Yellow Urine Glucose (Ua) Negative Negative Urine Ketones Negative Negative Urine Leukocyte Esterase Negative Negative Urine Nitrite Negative Negative Urine Protein Negative Negative Urine Urobilinogen 0.2 0.2-1.0 Urine pH 5.0 Low 6.5-7.5 Laboratory test 11/19/2015 N2N/CCD Import Alanine Aminotransferase 56 12 -78 finding (Alt/SGPT) Albumin 4.1 3.4-5.0 Albumin/Globulin Ratio 1.0 Alkaline Phosphatase 137 High 45-117 Aspartate Amino Transf (Ast/Sgot) 30 15-37 Globulin 4.0 1.9-4.3 Total Bilirubin 0.9 0.2-1.0 Total Creatine Kinase 137 39-308 Total Protein 8.1 6.4-8.2 Laboratory test 11/07/2015 N2N/CCD Import Bedside 107 70-110 finding Glucose Comprehensive 10/26/2015 [facility] Glucose 121 mg/dL High 74-106 Metabolic Panel [address] [place], [place] [address] [phone] BUN 39 mg/dL High 7-18 Creatinine 2.0 [...] Alkaline Phosphatase 117 U/L 45-117 Glycohemoglobin 10/26/2015 [facility] Glycohemoglobin 7.8 % High 4.2-6.[address] (A1c) [place], [place] [address] [phone] eAG 177 mg/dL Laboratory test 10/26/2015 [facility] Ia 2 Autoantibodies < 1.0 . [address] U/[place] [address] [phone] LDL Cholesterol 10/26/2015 [facility] Cholesterol 113 mg/dL <200 68 Profile [address] [place] [address] [phone] Triglycerides 94 mg/dL <150 69 HDL Cholesterol 34 mg/dL Low >40 70 LDL-Cholesterol 60 mg/dL < 100 71 Laboratory test 10/26/2015 [facility] TSH Reflex 3.79 uIU/mL High 0.36-3.74 72 finding [address] FT4 and/[place] [address] FT3 [phone] Free T4 1.27 ng/dL 0.76-1.46 Laboratory test finding 10/26/2015 N2N/CCD Import Estimated Average 177 Glucose (eAG) Estimated GFR () 47 >60 Estimated GFR (Non- 39 >60 Hemoglobin A1c 7.8 High 4.2-6.3 Sodium Level 136 136-145 Thyroid Stimulating Hormone (TSH) 3.79 High 0.36-3.74 Laboratory test 10/08/2015 N2N/CCD Import Bedside 162 High 70-110 finding Glucose Laboratory test 09/13/2015 [facility] C-Peptide 0.9 ng/mL Low 1.1-4.4 73 finding [address] [place] [address] [phone] Comprehensive 09/13/2015 [facility] Glucose 99 mg/dL 74-106 Metabolic Panel [address] [place] [address] [phone] BUN 21 mg/dL High 7-18 Creatinine 1.8 [...] Phosphatase 143 U/L High 45-117 Glycohemoglobin 09/13/2015 [facility] Glycohemoglobin 9.7 % High 4.2-6.[address] (A1c) [place], [place] [address] [phone] eAG 232 mg/dL LDL Cholesterol Profile 09/13/2015 [facility] Cholesterol 104 mg/dL <[address] [place], [place] [address] [phone] Triglycerides 104 mg/dL <150 77 HDL Cholesterol 35 mg/dL Low >40 78 LDL-Cholesterol 48 mg/dL < 100 79 Testosterone,Serum 09/13/2015 [facility] Testosterone,Serum [phone] ng/dL [place], [place] [address] [phone] Comment See Note 80 CBC W/Automated Diff 09/13/2015 [facility] White Blood 5.0 K/uL 3.4-10.[address] [place] [address] [phone] Red Blood Count 4.35 M/uL 4.20-5.80 Hemoglobin [...] % 33.0-73.0 Lymph % 28.3 % 17.0-56.0 [place] % 11.0 % High 0.0-10.0 Eo% 1.8 % 0.0-5.0 Bas% 1.0 % 0.1-1.0 Neut# 2.90 K/uL 1.8-7.0 Lymph # 1.42 K/uL Low 1.8-7.0 [place] # 0.55 K/uL 0.0-0.8 Eos # 0.09 K/uL 0.0-0.5 Baso # 0.05 K/uL Low 0.1-0.2 Microalbumin,Random 09/13/2015 [facility] Microalbumin,Urine < 5.0 < 20.[address] mg/[place] [address] [phone] Laboratory test 09/13/2015 N2N/CCD Import Basophils # [...] 81 Sodium Level 140 136-145 Testosterone Level [phone] Laboratory test 08/20/2015 N2N/CCD Import Bedside Glucose [...] N2N/CCD Import Estimated GFR ( 48 >60 [place]) Estimated GFR (Non- 39 >60 Sodium Level 136 136-145 Laboratory test finding 06/27/2015 [facility] Magnesium 2.4 mg/dL 1.8-2.4 [address] [place], [place] [id number] [phone] Free T3 2.29 pg/mL 2.18-3.98 Free T4 1.40 ng/dL 0.76-1.46 Basic Metabolic Panel 06/27/2015 [facility] Glucose 182 mg/dL High 74-106 [address] [place], [place] [id number] [phone] BUN 30 mg/dL High 7-18 Creatinine 2.0 mg/dL High 0.6-1.3 Glom Filtration Rate, Estimate 39 mL/min >60 If 48 mL/min >60 82 BUN/Creat 15.0 ratio Sodium 136 mmol/L 136-145 Potassium 4.1 mmol/L 3.5-5.1 Chloride 100 mmol/L 98-107 Carbon Dioxide 30 mmol/L 21-32 Anion Gap 6 mEq/L Low 8-16 Calcium 9.6 mg/dL 8.5-10.1 Laboratory test 06/27/2015 [facility] TSH Reflex 4.08 High 0.36-3.74 83 finding 134 [facility] FT4 and/or uIU/[place] [address] FT3 [phone] Basic Metabolic 05/10/2015 [facility] Glucose 155 mg/dL High 74-106 Panel [address] [place] [address] [phone] BUN 28 mg/dL High 7-18 Creatinine 1.9 mg/dL High 0.6-1.3 Glom Filtration Rate, Estimate 42 mL/min >60 If 50 mL/min >60 84 BUN/Creat 14.7 ratio Sodium 136 mmol/L 136-145 Potassium 4.3 mmol/L 3.5-5.1 Chloride 103 mmol/L 98-107 Carbon Dioxide 32 mmol/L 21-32 Anion Gap 1 mEq/L Low 8-16 Calcium 9.7 mg/dL 8.5-10.1 Laboratory test 05/10/2015 [facility] Thyroid Stim 4.72 High 0.36-3.[address] Hormone uIU/[place] [address] [phone] Glycohemoglobin 05/10/2015 [facility] Glycohemoglobin 8.2 % High 4.2-6.[address] (A1c) [place] [address] [phone] eAG 189 mg/dL Laboratory test finding 05/10/2015 N2N/[facility]D Import Estimated Average 189 Glucose (eAG) Estimated GFR () 50 >60 Estimated GFR (Non- 42 >60 Hemoglobin A1c 8.2 High 4.2-6.3 Sodium Level 136 136-145 Basic Metabolic Panel 04/17/2015 [facility] Glucose 139 mg/dL High 74-[address] [place] [address] [phone] BUN 35 mg/dL High 7-18 Creatinine 2.5 mg/dL High 0.6-1.3 Glom Filtration Rate, Estimate 30 mL/min >60 If 37 mL/min >60 86 BUN/Creat 14.0 ratio Sodium 137 mmol/L 136-145 Potassium 4.6 mmol/L 3.5-5.1 Chloride 101 mmol/L 98-107 Carbon Dioxide 27 mmol/L 21-32 Anion Gap 9 mEq/L 8-16 Calcium 9.2 mg/dL 8.5-10.1 CBS W/Automated Diff 04/17/2015 [facility] White Blood 5.5 K/uL 3.4-10.[address] [place] [address] [phone] Red Blood Count 3.78 M/uL Low 4.20-5.80 [...] % 33.0-73.0 Lymph % 26.5 % 17.0-56.0 [place] % 9.0 % 0.0-10.0 Eo% 1.8 % 0.0-5.0 Bas% 0.7 % 0.1-1.0 Neut# 3.39 K/uL 1.8-7.0 Lymph # 1.45 K/uL Low 1.8-7.0 [place] # 0.49 K/uL 0.0-0.8 Eos # 0.10 K/uL 0.0-0.5 Baso # 0.04 K/uL Low 0.1-0.2 LDL Cholesterol 04/17/2015 [facility] Cholesterol 113 mg/dL < 200 87 Profile [address] [place] [address] [phone] Triglycerides 154 mg/dL < 150 88 HDL Cholesterol 39 mg/dL > 40 89 LDL-Cholesterol 43 mg/dL < 100 90 Liver Function Tests 04/17/2015 [facility] Total Protein 7.8 g/dL 6.4-8.2 [address] [place] [address] [phone] Albumin 4.2 g/dL 3.4-5.0 Globulin 3.6 g/dL 1.9-4.3 Alb/Glob 1.2 ratio Bilirubin,Total 0.7 mg/dL 0.2-1.0 Bilirubin,Direct 0.2 mg/dL 0.0-0.2 Bilirubin,Indirect 0.5 mg/dL 0.0-0.9 Sgot/Ast 23 U/L 15-37 SGPT/Alt 54 U/L 12-78 Alkaline Phosphatase 112 U/L 45-117 Laboratory test finding 04/17/2015 [facility] Magnesium 2.2 mg/dL 1.8-2.4 [address] [place] [address] [phone] Thyroid Stim Hormone 10.00 uIU/mL High 0.36-3.74 Basic Metabolic Panel 01/15/2015 [facility] Glucose 326 mg/dL High 74-106 [address] [place] [address] [phone] BUN 29 mg/dL High 7-18 Creatinine 1.9 [...] [facility] Total Protein 8.1 g/dL 6.4-8.2 [address] [place] [address] [phone] Albumin 4.4 g/dL 3.4-5.0 Globulin 3.7 g/dL 1.9-4.3 Alb/Glob 1.2 ratio Bilirubin,Total 0.8 mg/dL 0.2-1.0 Bilirubin,Direct 0.2 mg/dL 0.0-0.2 Bilirubin,Indirect 0.6 mg/dL 0.0-0.9 Sgot/Ast 27 U/L 15-37 SGPT/Alt 54 U/L 12-78 Alkaline Phosphatase 105 U/L 45-117 Laboratory test finding 01/15/2015 [facility] Magnesium 2.1 mg/dL 1.8-2.4 [address] [place] [address] [phone] TSH Reflex FT4 and/or FT3 12.80 uIU/mL High 0.36-3.74 92 Free T3 2.03 pg/mL Low 2.18-3.98 Free T4 1.03 ng/dL 0.76-1.46 Comprehensive 12/11/2014 [facility] Glucose 174 mg/dL High 74-106 93 Metabolic Panel [address] [place] [address] [phone] BUN 23 mg/dL High 7-18 Creatinine 1.9 [...] 113 U/L 45-117 CBS W/Automated Diff 12/11/2014 [facility] White Blood 5.4 K/uL 3.4-10.[address] [place] [address] [phone] Red Blood Count 4.01 M/uL Low 4.20-5.80 [...] % 33.0-73.0 Lymph % 30.1 % 17.0-56.0 [place] % 11.5 % High 0.0-10.0 Eo% 2.8 % 0.0-5.0 Bas% 1.1 % High 0.1-1.0 Neut# 2.94 K/uL 1.8-7.0 Lymph # 1.62 K/uL Low 1.8-7.0 [place] # 0.62 K/uL 0.0-0.8 Eos # 0.15 K/uL 0.0-0.5 Baso # 0.06 K/uL Low 0.1-0.2 LDL Cholesterol 12/11/2014 [facility] Cholesterol 129 mg/dL < 200 95 Profile [address] [place] [address] [phone] Triglycerides 105 mg/dL < 150 96 HDL Cholesterol 53 mg/dL > 40 97 LDL-Cholesterol 55 mg/dL < 100 98 Laboratory test finding 12/11/2014 [facility] Magnesium 2.1 mg/dL 1.8-2.4 [address] [place] [address] [phone] TSH Reflex FT4 and/or FT3 25.80 uIU/mL [...] 39-308 Troponin I 13.300 *H Laboratory 10/20/2014 [facility] Aot Request Test(s) 100 test finding [address] [place] [address] [phone] Laboratory 10/20/2014 N2N/CCD Import Miscellaneous Test(s) test finding Test Comment added Laboratory 10/20/2014 N2N/CCD Import Urine Bilirubin Negative Negative test finding Urine Blood Trace Negative Urine Clarity Clear Clear Urine Color Yellow Yellow Urine Glucose (Ua) 500 High Negative Urine Ketones Negative Negative Urine Leukocyte Esterase Negative Negative Urine Nitrite Negative Negative Urine Protein 30 High Negative Urine Specific [place] 1.025 1.010-1.030 Urine Urobilinogen 1.0 0.2-1.0 Urine pH 6.0 Low 6.5-7.5 Laboratory test 10/20/2014 [facility] Import Basophils # (Auto) 0.02 Low 0.1 [...] Total Protein 7.0 6.4-8.2 Laboratory test 10/19/2014 [employer] Import Direct Bilirubin 0.4 High 0.0- 0.2 finding Indirect Bilirubin 0.9 0.0-0.9 Laboratory test finding 10/18/2014 [facility] Import Lipase 230 73-393 Laboratory test finding 10/18/2014 [facility] Import Bedside Glucose 256 High 70-110 1 E11.9 2 Elevated levels of HbA1c suggest the need for more aggressive treatment of glycemia. The [place] [employer] recommends that a primary goal [...] for more aggressive treatment of glycemia. The [place] [employer] recommends that a primary goal of therapy should be a HbA1c of <7% and that physicians should re-evaluate the treatment regimen in patients with HbA1c values consistently >8%. 8 E03.9 9 E11.65 10 Elevated levels of HbA1c suggest the need for more aggressive treatment of glycemia. The [place] [employer] recommends that a primary goal [...] (NCEP) 16 I25.10 ATHSCL HEART DISEASE OF [place] CORONARY ART 17 Note: Persistent reduction for [...] for more aggressive treatment of glycemia. The [place] [employer] recommends that a primary goal of therapy should be a HbA1c of <7% and that physicians should re-evaluate the treatment regimen in patients with HbA1c values consistently >8%. 23 E11.9 N18.3 24 Elevated levels of HbA1c suggest the need for more aggressive treatment of glycemia. The [place] [employer] recommends that a primary goal [...] for more aggressive treatment of glycemia. The [place] [employer] recommends that a primary goal [...] Source: National Cholesterol Education Program (NCEP) 33 [employer] Management Specialist: [id number] 34 E11.9 35 Note: Persistent reduction for [...] for more aggressive treatment of glycemia. The [place] [employer] recommends that a primary goal [...] for more aggressive treatment of glycemia. The [place] [employer] recommends that a primary goal of therapy should be a HbA1c of <7% and that physicians should re-evaluate the treatment regimen in patients with HbA1c values consistently >8%. 42 Elevated levels of HbA1c suggest the need for more aggressive treatment of glycemia. The [place] [employer] recommends that a primary goal [...] for more aggressive treatment of glycemia. The [place] [employer] recommends that a primary goal [...] for more aggressive treatment of glycemia. The [place] [employer] recommends that a primary goal of therapy should be a HbA1c of <7% and that physicians should re-evaluate the treatment regimen in patients with HbA1c values consistently >8%. 67 Reference Range: <1.0 Negative > or=1.0 Positive Performed at: [facility] [address] [place] [id number] Digital Traffic Coordinator: Sumanth Alex MD, Phone: [phone] Reference Guidelines*: Desirable: ........... < 200 [...] for more aggressive treatment of glycemia. The [place] [employer] recommends that a primary goal [...] up to 40 years old. Performed at: - [facility] [address] [id number] Digital Traffic Coordinator: Nubia Rocha MD, Phone: [phone] Adult male reference interval is based on a population of lean males up to 40 years old. Performed at: RN - [facility] [address] [id number] Digital Traffic Coordinator: Nubia Rocha MD, Phone: [phone] Note: Persistent reduction for 3 months [...] for more aggressive treatment of glycemia. The [place] [employer] recommends that a primary goal [...] fraction Instructions: Procedures Date Code Description Status 08/25/2018 37571 Cardioversion/Defibril. Single Lead Pacemaker Completed 05/14/2018 22303 Echocardiogram Complete Completed 05/06/2018 93421 Cardioversion/Defibril. Single Lead Pacemaker Completed 05/06/2018 01215 EKG-Tracing And Report Completed 02/05/2018 [id number] Diabetic Foot Exam Completed 02/05/2018 38268 Pare Hyperkeratotic Lesion, Single Completed 11/05/2017 33972 Pare Hyperkeratotic Lesion, Single Completed 10/29/2017 42228 Dual Pacemaker Programming Anayisis, Review And Report Completed 08/14/2017 76420 Pare Hyperkeratotic Lesion, Single Completed 07/16/2017 34934 Myocardial Imaging Tomographic Multiple Study AT Rest Completed Or Stress 07/16/2017 16794 Stress Test Interpre And Report Only Completed 07/16/2017 26952 Stress Test Physician Super Only Completed 05/13/2017 40885 Echocardiogram Complete Completed 02/25/2017 88709 Cardioversion/Defibril. Single Lead Pacemaker Completed 02/25/2017 04980 Cardioversion/Defibril. Single Lead Pacemaker Completed 02/04/2017 17972 EKG-Tracing And Report Completed 10/30/2016 71225 Cardioversion/Defibril. Single Lead Pacemaker Completed 10/30/2016 36281 Cardioversion/Defibril. Single Lead Pacemaker Completed 06/26/2016 06499 Cardioversion/Defibril. Single Lead Pacemaker Completed 06/26/2016 18558 Cardioversion/Defibril. Single Lead Pacemaker Completed 06/11/2016 04617 Myocardial Imaging Tomographic Multiple Study AT Rest Completed Or Stress 06/11/2016 84826 Echocardiogram Complete Completed 06/11/2016 14456 Stress Test Interpre And Report Only Completed 06/11/2016 11894 Stress Test Physician Super Only Completed 11/28/2015 18807 Cardioversion/Defibril. Single Lead Pacemaker Completed 11/22/2015 72043 Bronchospasm Provocation Evaluation Multi Spirometric Completed Determinati 11/22/2015 62413 Spirometry Completed 11/19/2015 90201 EKG Interpretation And Report Only Completed 10/28/2015 79080 Glucose Monitoring Interpetation And Report Completed 08/20/2015 94819 Echocardiogram Complete Completed 08/18/2015 41315 EKG Interpretation And Report Only Completed 06/27/2015 53585 Cardioversion/Defibril. Single Lead Pacemaker Completed 06/27/2015 81724 Cardioversion/Defibril. Single Lead Pacemaker Completed 06/27/2015 31982 EKG-Tracing And Report Completed 04/17/2015 93088 Cardioversion/Defibril. Single Lead Pacemaker Completed 04/02/2015 25 Disability Form Completed 03/05/2015 44911 Echocardiogram Complete Completed 03/05/2015 97626 Stress Test Interpre And Report Only Completed 03/05/2015 65438 Stress Test Physician Super Only Completed 03/05/2015 79811 Stress Test Physician Super Only Completed 03/05/2015 18243 Myocardial Imaging Tomographic Multiple Study AT Rest Completed Or Stress 03/01/2015 42188 EKG-Tracing And Report Completed 02/21/2015 24836 Cardioversion/Defibril. Single Lead Pacemaker Completed 02/21/2015 24853 Cardioversion/Defibril. Single Lead Pacemaker Completed 12/16/2014 11677 Echocardiogram Complete Completed 12/11/2014 05333 EKG-Tracing And Report Completed 10/20/2014 66473 EKG Interpretation And Report Only Completed 10/20/2014 10158 Echocardiogram Complete Completed 05/13/2011 53183 Radiology, Knee 3 Views Completed 05/13/2011 41944 Radiology, L-S Spine 2 Or 3 Views Completed 03/17/2009 05242 Echocardiogram Complete Completed Encounters Type Date Location Provider Dx Diagnosis Office Visit 12/13/2018 Family Efrain Sampson MD E78.5 Hyperlipidemia, 9:00a Srinath LAW unspecified E11.9 Type 2 diabetes mellitus without complications E03.9 Hypothyroidism, unspecified N18.9 Chronic kidney disease, unspecified 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] M25.511 Pain in right shoulder Office Visit 10/19/2018 10:40a Cardiology Wm I25.5 Ischemic Office Tigist Powell, cardiomyopathy PA Z95.810 Presence of automatic (implantable) cardiac defibrillator I47.2 Ventricular tachycardia E78.5 Hyperlipidemia, unspecified I10 Essential (primary) hypertension Office Visit 09/13/2018 8:30a Family Efrain Sampson, E11.9 Type 2 diabetes Srinath LAW MD mellitus without complications E03.9 Hypothyroidism, unspecified N18.9 Chronic kidney disease, unspecified M25.511 Pain in right shoulder Office Visit 08/12/2018 3:00p Family Efrain Sampson, E03.9 Hypothyroidism, Srinath LWA MD unspecified R06.02 Shortness of breath M25.511 Pain in right shoulder E11.9 Type 2 diabetes mellitus without complications Office Visit 06/28/2018 8:30a Family Medicine Efrain Cagle MD M54.[address] M25.511 Pain in right shoulder E78.5 Hyperlipidemia, unspecified E03.9 Hypothyroidism, unspecified E11.65 Type 2 diabetes mellitus with hyperglycemia Office Visit 05/06/2018 11:00a Cardiology Office Wm I25.10 Athscl heart Tigist Powell, [place] disease of [place] coronary artery w/o ang pctrs I47.2 Ventricular [...] Bia Todd, I25.5 Ischemic MD cardiomyopathy 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[place] coronary artery w/o ang pctrs I47.2 Ventricular tachycardia Z95.810 Presence of automatic (implantable) cardiac defibrillator I50.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 N18.3 Chronic kidney disease, stage 3 (moderate) Office Visit 08/14/2017 9:45a [facility] Medicine Sanjuana Carbone, L[address] M.D. callosities E11.9 Type 2 diabetes mellitus without complications Office Visit 08/06/2017 10:30a [facility] Medicine Sanjuana Carbone, Z23 Encounter for [address] M.D. immunization E11.9 Type 2 diabetes mellitus without complications I10 Essential (primary) hypertension E78.5 Hyperlipidemia, unspecified L84 Corns and callosities Z23 Encounter for immunization Office Visit 05/27/2017 11:00a Cardiology Office Bia Todd, R07.2 Precordial pain MD 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[place] coronary artery w/o ang pctrs I10 Essential (primary) hypertension E78.5 Hyperlipidemia, unspecified I25.5 Ischemic cardiomyopathy I47.2 Ventricular tachycardia Z95.810 Presence of automatic (implantable) cardiac defibrillator I50.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 N18.3 Chronic kidney disease, stage 3 (moderate) Office Visit 04/22/2017 10:00a Family Medicine Sanjuana Carbone, E11.9 Type [address] M[address] mellitus without complications E03.9 Hypothyroidism, unspecified I10 Essential (primary) hypertension E78.5 Hyperlipidemia, unspecified Office Visit 03/05/2017 2:30p Family Medicine Sanjuana Carbone, R06.02 Shortness of [place] ANI [place]. breath Office Visit 02/04/2017 1:50p Cardiology Office Bia Todd, I25.10 Athanital heart MD disease of [place] coronary artery w/o ang pctrs I50.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 I25.5 Ischemic cardiomyopathy I47.2 Ventricular tachycardia Z95.810 Presence of automatic (implantable) cardiac defibrillator Office Visit 01/20/2017 11:30a Family Medicine Sanjuana Carbone, E11.9 Type 2 diabetes [place] ANI Kennedy mellitus without complications N18.3 Chronic kidney disease, stage 3 (moderate) E03.9 Hypothyroidism, unspecified Office Visit 09/24/2016 10:40a Cardiology Office Bia Todd I25.5 Ischemic MD cardiomyopathy 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 I47.2 Ventricular tachycardia Z95.810 Presence of automatic (implantable) cardiac defibrillator N18.3 Chronic kidney disease, stage 3 (moderate) 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 Office Visit 06/18/2016 1:50p Cardiology Office Bia Todd, I25.5 Ischemic MD cardiomyopathy I50.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 I47.2 Ventricular tachycardia Z95.810 Presence of automatic (implantable) cardiac defibrillator N18.3 Chronic kidney disease, stage 3 (moderate) 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 Office Visit 06/04/2016 3:30p Cardiology Office Bia Todd, I25.5 Ischemic MD cardiomyopathy I50.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 I47.2 Ventricular tachycardia Z95.810 Presence of automatic (implantable) cardiac defibrillator N18.3 Chronic kidney disease, stage 3 (moderate) Office Visit 03/04/2016 8:00a Cardiology Office Bia Todd I25.5 Ischemic MD cardiomyopathy I50.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 I47.2 Ventricular tachycardia Z95.810 Presence of automatic (implantable) cardiac defibrillator E10.65 Type 1 diabetes mellitus with hyperglycemia N18.3 Chronic kidney disease, stage 3 (moderate) E03.9 Hypothyroidism, unspecified I95.1 Orthostatic hypotension Office Visit 01/02/2016 10:00a Cardiology Office Todd, [place], I25.5 Ischemic MD cardiomyopathy I50.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 I47.2 Ventricular tachycardia Z95.810 Presence of automatic (implantable) cardiac defibrillator R06.02 Shortness of breath I10 Essential (primary) hypertension N18.3 Chronic kidney disease, stage 3 (moderate) 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[place] coronary artery w/o ang pctrs R00.1 Bradycardia, unspecified Office Visit 11/28/2015 10:00a Cardiology Office Bia Todd, I25.5 Ischemic MD cardiomyopathy I50.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 I47.2 Ventricular tachycardia Z95.810 Presence of automatic (implantable) cardiac defibrillator E10.65 Type 1 diabetes mellitus with hyperglycemia R06.02 Shortness of breath I10 Essential (primary) hypertension Office Visit 11/19/2015 11:21a Cardiology Office ToddAyoa, I47.2 Ventricular MD tachycardia I50.9 Heart failure, unspecified 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[place] coronary artery w/o ang pctrs Z95.810 Presence [...] hrt fail 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[place] coronary artery w/o ang pctrs Z95.810 Presence of automatic (implantable) cardiac defibrillator I49.01 Ventricular fibrillation I10 Essential (primary) hypertension 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 unspecified E11.65 Type 2 diabetes mellitus with hyperglycemia E03.9 Hypothyroidism, unspecified E78.2 Mixed hyperlipidemia N52.9 Male erectile dysfunction, unspecified G47.30 Sleep apnea, unspecified I50.40 Unsp combined systolic and diastolic (congestive) hrt fail Office Visit 08/28/2015 2:30p Cardiology Office Bia Todd, I25.5 Ischemic MD cardiomyopathy 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[place] coronary artery w/o [facility] pctrs Z95.810 Presence of automatic (implantable) cardiac defibrillator I49.01 Ventricular fibrillation I10 Essential (primary) hypertension R42 Dizziness and giddiness R07.9 Chest pain, unspecified E11.9 Type 2 diabetes mellitus without complications Office Visit 08/20/2015 Cardiology Dilan Skinner R07.9 Chest pain, 9:37a Office Marcia Ríos, [facility] unspecified Office Visit 08/18/2015 [place] Brandee Chao, R07.9 Chest pain, 11:25a [facility] unspecified Center Office Visit 06/27/2015 Cardiology Bia Todd MD I25.5 Ischemic 10:30a Office cardiomyopathy I49.01 Ventricular fibrillation 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[place] coronary artery w/o [facility] pctrs Z95.810 Presence of automatic (implantable) cardiac defibrillator I10 Essential (primary) hypertension R42 Dizziness and giddiness 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 Office Visit 05/16/2015 2:30p Cardiology Office Bia Todd, I25.5 Ischemic MD cardiomyopathy 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[place] coronary artery w/o ang pctrs Z95.810 Presence of automatic (implantable) cardiac defibrillator I49.01 Ventricular fibrillation I10 Essential (primary) hypertension R53.82 Chronic fatigue, unspecified 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 N19 Unspecified kidney failure Office Visit 04/17/2015 Cardiology Bia Todd, 414.01 Coronary 2:30p Office MD Atherosclerosis [place] 427.41 Ventricular Fibrillation V45.02 Cardiac Defibrillator Automatic Implantable Postsurgical 428.0 Congestive Heart Failure Unspecified 401.1 Hypertension Benign Office Visit 03/01/2015 9:00a Cardiology Office Bia Todd, 427.41 Ventricular MD Fibrillation V45.02 Cardiac Defibrillator Automatic Implantable Postsurgical 428.0 Congestive Heart Failure Unspecified 414.01 Coronary Atherosclerosis [place] 786.05 Shortness Of Breath Office Visit 01/15/2015 3:30p Cardiology Office Bia Todd, 428.0 Congestive Heart MD Failure Unspecified 414.01 Coronary Atherosclerosis [place] V45.02 Cardiac Defibrillator Automatic Implantable Postsurgical 427.41 Ventricular Fibrillation Office Visit 12/11/2014 1:30p Cardiology Office Bia Todd, 410.90 Myocardial Infarc Acute Unspec Site Episode Care Unspec 425.4 Cardiomyopathy Other Prim 428.0 Congestive Heart Failure Unspecified 414.01 Coronary Atherosclerosis [place] 401.1 Hypertension Benign V45.02 Cardiac Defibrillator Automatic Implantable Postsurgical 427.41 Ventricular Fibrillation 586 Renal Failure Unspec 244.9 Hypothyroidism Other Unspec Office Visit 10/20/2014 Cardiology Office Bia Todd, 410.90 Myocardial Infarc 9:40a Acute Unspec Site Episode Care Unspec Office Visit 10/18/2014 [facility] Vandoren, 558.9 Gastroenteritis & 9:43a [facility] Benito Kurtz DO Colitis Noninfectious Other Office Visit 05/13/2011 Orthopaedic [facility], 719.46 Pain Joint Lower Leg 9:00a Office Leighton Yanes MD Plan of Treatment Future Appointment(s):03/16/2019 9:00 am - Efrain Mccloud MD at [facility]04/25/2019 2:00 pm - Bia Todd MD at Cardiology Office
--- OUTSIDE RECORDS SUMMARY | 2018-12-22 21:39 | XMS REPORT | Continuity of Care Document ---
:1975 External Reference #:[id number] Author Name Efrain Mccloud MD Address [address] [place] [address] Care Team Providers Name Role Phone Efrain Mccloud MD Care Team Information Life Trainer Unavailable Efrain Mccloud MD Primary Care Physician Unavailable Payers Date Identification Numbers Payment Provider Subscriber Policy Number: [id number] Medicare Yoni Bowser PayID: [id number] [address] [place] [address] Expires: 2018 Policy Number: [id number] Medicare Yoni Bowser PayID: [id number] [address] [place] [address] Advance Directives Description No Information Available Problems [...] PA Onset: 05/06/2018 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 Tablets DR Atorvastatin Calcium 1 by mouth every day 90tabs Efrain Mccloud, 80mg Tablets History Medications Ventolin HFA 2 puffs q4-6 8gm R06.02 Efrain Mccloud, 08/12/2018 - 108(90Base) hours as needed Unknown mcg/Act Aerosol Magnesium Oxide take one tablet 60tabs Ramesh, 01/12/2018 - [facility] mouth [facility] 08/06/2018 400(240mg) mg Tablets daily [facility] Magnesium Oxide Take One Tablet 60tabs Sanjuana Carbone, 10/15/2017 - By Mouth Twice M.D. Unknown 400(240mg) mg Tablets Daily Lantus Solostar inject 55 units 15units Efrain Mccloud, 08/07/2017 - every night at 08/12/2018 100Unit/ML Solution bedtime Pen-Inject BD Pen place on flexpen 90units Sanjuana Carbone, 05/20/2017 - Needle/Laura/Ultra for injection M.D. 01/28/2018 Fine/32G X once daily. one [id number] time use Levothyroxine Sodium 1 by mouth every Bia Todd, 10/24/2015 - day Unknown 112mcg Tablets Levothyroxine Sodium 1 by mouth every 90tabs Ramesh, 10/24/2015 - day Charmaine, 06/28/2018 112mcg Tablets [facility] Entresto 1 by mouth twice 60tabs Bia [...] Tablets a day Dilan Ríos, 10/30/2016 M.D., [facility] Spironolactone 1 by mouth every Unknown - [...] CPT Code Status Date Vaccine Lot # [id number] Given 08/06/2017 Influenza Virus Vaccine Quadrivalent Iiv4 Split [id number] Preser Free Id [id number] Refused 04/22/2017 Influenza [...] kg/m2 BSA (Body Surface Area) 2.31 m2 [place] body weight in kilograms 78 kg O2 Saturation Level with Exercise 97 % 09/13/2018 8:19am BP Systolic 130 mmHg BP Diastolic 78 mmHg Body Temperature 97.5 F Heart Rate 77 /min Respiratory Rate 18 /min Height 71 inches 5'11" Weight 237.00 lb BMI (Body Mass Index) 33.1 kg/m2 BSA (Body Surface Area) 2.27 m2 [place] body weight in kilograms 78 kg O2 % BldC Oximetry 97 % 08/12/2018 2:48pm BP Systolic Sitting Left Arm 102 mmHg BP Diastolic Sitting Left Arm 64 mmHg Body Temperature 98.2 F Heart Rate 71 /min Respiratory Rate 16 /min Height 71 inches 5'11" Weight 234.00 lb BMI (Body Mass Index) 32.6 kg/m2 BSA (Body Surface Area) 2.25 m2 [place] body weight in kilograms 78 kg O2 % BldC Oximetry 98 % 06/28/2018 8:26am BP Systolic Sitting Left Arm 122 mmHg BP Diastolic Sitting Left Arm 72 mmHg Heart Rate 68 /min Respiratory Rate 18 /min Height 71 inches 5'11" Weight 241.00 lb BMI (Body Mass Index) 33.6 kg/m2 BSA (Body Surface Area) 2.28 m2 [place] body weight in kilograms 78 kg 05/06/2018 10:51am BP Systolic Sitting Left Arm 118 mmHg BP Diastolic Sitting Left Arm 74 mmHg Heart Rate 64 /min Respiratory Rate 16 /min Height 71 inches 5'11" Weight 237.00 lb BMI (Body Mass Index) 33.1 kg/m2 BSA (Body Surface Area) 2.27 m2 [place] body weight in kilograms 78 kg O2 % BldC Oximetry 97 % Room air 02/05/2018 10:53am BP Systolic 112 mmHg BP Diastolic 64 mmHg Body Temperature 96.9 F Heart Rate 60 /min Respiratory Rate 18 /min Height 71 inches 5'11" Weight 234.00 lb BMI (Body Mass Index) 32.6 kg/m2 BSA (Body Surface Area) 2.25 m2 [place] body weight in kilograms 78 kg O2 [...] kg/m2 BSA (Body Surface Area) 2.25 m2 [place] body weight in kilograms 75 kg 08/14/2017 9:47am BP Systolic 102 mmHg BP Diastolic 72 mmHg Body Temperature 96.6 F Heart Rate 69 /min Height 70 inches 5'10" Weight 234.00 lb BMI (Body Mass Index) 33.6 kg/m2 BSA (Body Surface Area) 2.23 m2 [place] body weight in kilograms 75 kg O2 % BldC Oximetry 96 % 08/06/2017 10:32am BP Systolic 106 mmHg BP Diastolic 66 mmHg Body Temperature 97.9 F Heart Rate 70 /min Height 70 inches 5'10" Weight 235.00 lb BMI (Body Mass Index) 33.7 kg/m2 BSA (Body Surface Area) 2.24 m2 [place] body weight in kilograms 75 kg O2 % BldC Oximetry 96 % 05/27/2017 10:56am BP Systolic Sitting Left Arm 106 mmHg BP Diastolic Sitting Left Arm 70 mmHg Heart Rate 60 /min Respiratory Rate 16 /min Height 70 inches 5'10" Weight 229.00 lb BMI (Body Mass Index) 32.9 kg/m2 BSA (Body Surface Area) 2.21 m2 [place] body weight in kilograms 75 kg 04/22/2017 10:15am BP Systolic Sitting Right Arm 112 mmHg BP Diastolic Sitting Right Arm 72 mmHg Height 70 inches 5'10" Weight 237.12 lb BMI (Body Mass Index) 34.0 kg/m2 BSA (Body Surface Area) 2.24 m2 [place] body weight in kilograms 75 kg 03/05/2017 2:42pm BP Systolic Sitting Right Arm 122 mmHg BP Diastolic Sitting Right Arm 76 mmHg Heart Rate 98 /min Height 69 inches 5'9" Weight 229.25 lb BMI (Body Mass Index) 33.9 kg/m2 BSA (Body Surface Area) 2.19 m2 [place] body weight in kilograms 73 kg 02/04/2017 1:39pm BP Systolic Sitting Left Arm 110 mmHg BP Diastolic Sitting Left Arm 82 mmHg Heart Rate 60 /min Respiratory Rate 16 /min Height 69 inches 5'9" Weight 227.00 lb BMI (Body Mass Index) 33.5 kg/m2 BSA (Body Surface Area) 2.18 m2 [place] body weight in kilograms 73 kg 01/20/2017 11:34am BP Systolic 116 mmHg BP Diastolic 62 mmHg Body Temperature 97.4 F Heart Rate 70 /min Height 69 inches 5'9" Weight 227.50 lb BMI (Body Mass Index) 33.6 kg/m2 BSA (Body Surface Area) 2.18 m2 [place] body weight in kilograms 73 kg 09/24/2016 [...] Test Result H/L Range Note Glycohemoglobin A1c [address] Glycohemoglobin 7.9 % High 4.2-6.3 1, 2 9 [address] [facility] (A1c) [place], [place] [id number] [phone] eAG 180 mg/dL TSH Reflex FT4 08/12/[address] Thyroid Stim 3.89 uIU/mL N 0.30-4.20 3 And/Or FT3 [address] [place] [address] Hormone [place], [place] [id number] [phone] Reflex add FT3? Y Reflex add FT4? Y Magnesium 08/12/[address] Magnesium 2.4 mg/dL N 1.8-2.[address] [place] [address] [phone] Reflex add FT3? Y Reflex add FT4? Y CBC W/Automated Diff 06/28/[address] White Blood 6.3 K/uL N 3.4-10.5 4 [address] [facility] Count [place], [place] [id number] [phone] Red Blood Count 4.52 M/uL N 4.20-5.80 [...] 33.0-73.0 Lymph % 26.6 % N 20.0-42.0 [place] % 9.4 % N 0.0-10.0 Eo% 1.6 % N 0.0-6.6 Bas% 0.5 % N 0.0-1.1 Neut# 3.89 K/uL N 1.8-7.0 Lymph # 1.67 K/uL N 1.0-4.0 [place] # 0.59 K/uL N 0.0-0.8 Eos # 0.10 K/uL N 0.0-0.5 Baso # 0.03 K/uL N 0.0-0.1 Laboratory test 06/28/[address] Thyroid Stim 22.30 High 0.30- 4.20 finding [address] [facility] Hormone uIU/mL [place], [place] [address] [phone] Glycohemoglobin 06/28/[address] Glycohemoglobin 8.4 % High 4.2-6.3 5 A1c [address] [facility] (A1c) [place] [address] [phone] eAG 194 mg/dL Comprehensive Metabolic 06/28/[address] Glucose 168 mg/dL High 74-106 Panel [address] [place] [address] [phone] BUN 24 mg/dL High 7-18 Creatinine 1.9 mg/dL High 0.6-1.3 Glom Filtration Rate, Estimate 41 mL/min >60 If 50 mL/min >60 6 BUN/Creat 12.6 ratio Sodium 137 mmol/L N [...] Phosphatase 115 U/L N 45-117 Microalbumin,Random 06/28/[address] [facility] [address] Microalbumin,Urine 6.4 < 20.[address] mg/[place] [address] [phone] LDL Cholesterol 06/28/[address] [facility] [address] Cholesterol 113 <200 [address] mg/[place] [address] [phone] Triglycerides 109 mg/dL <150 8 HDL Cholesterol 39 mg/dL Low >40 9 LDL-Cholesterol 52 mg/dL < 100 10 Laboratory test 05/14/2018 [facility] Magnesium 2.5 mg/dL High 1.8-2.4 [address] [place] [address] [phone] CBC W/Automated 05/14/2018 [facility] White Blood 5.5 K/uL N 3.4-10.[address] [place] [address] [phone] Red Blood Count 4.62 M/uL N 4.20-5.80 [...] 33.0-73.0 Lymph % 25.6 % N 20.0-42.0 [place] % 10.5 % High 0.0-10.0 Eo% 1.8 % N 0.0-6.6 Bas% 0.5 % N 0.0-1.1 Neut# 3.41 K/uL N 1.8-7.0 Lymph # 1.42 K/uL N 1.0-4.0 [place] # 0.58 K/uL N 0.0-0.8 Eos # 0.10 K/uL N 0.0-0.5 Baso # 0.03 K/uL N 0.0-0.1 Comprehensive Metabolic 05/14/2018 [facility] Glucose 171 mg/dL High 74-106 Panel [address] [place] [address] [phone] BUN 25 mg/dL High 7-18 Creatinine 1.8 mg/dL High 0.6-1.3 Glom Filtration Rate, Estimate 44 mL/min >60 If 53 mL/min >60 12 BUN/Creat 13.8 ratio Sodium 141 mmol/L N [...] 12-78 Alkaline Phosphatase 116 U/L N 45-117 Glycohemoglobin 05/14/2018 [facility] Glycohemoglobin 7.9 % High 4.2-6.3 13 A1c [address] (A1c) [place] [address] [phone] eAG 180 mg/dL LDL Cholesterol Profile 05/14/2018 [facility] Cholesterol 90 mg/dL <200 14 [address] [place] [address] [phone] Triglycerides 102 mg/dL <150 15 HDL Cholesterol 37 mg/dL Low >40 16 LDL-Cholesterol 33 mg/dL < 100 17 Glycohemoglobin 02/05/2018 [facility] Glycohemoglobin 7.1 % High 4.2-6.3 18, A1c [address] (A1c) 19 [place], [place] [address] [phone] eAG 157 mg/dL Microalb/Creat 02/05/2018 [facility] Microalbumin,Urine 7.1 mg/L < 20.0 Ratio,Random [address] [place] [address] [phone] Microalbumin/Creatinine Ratio 24.5 ug/mgCrt < 30.0 Urine Creatinine Conc 29 mg/dL Basic Metabolic Panel 02/05/2018 [facility] Glucose 182 mg/dL High 74-[address] [place] [address] [phone] BUN 29 mg/dL High 7-18 Creatinine 1.8 mg/dL High 0.6-1.3 Glom Filtration Rate, Estimate 44 mL/min >60 If 53 mL/min >60 20 BUN/Creat 16.1 ratio Sodium 137 mmol/L N 136-145 Potassium 4.3 mmol/L N 3.5-5.1 Chloride 101 mmol/L N 98-107 Carbon Dioxide 26 mmol/L N 21-32 Anion Gap 10 mEq/L N 8-16 Calcium 8.9 mg/dL N 8.5-10.1 CBS W/Automated 11/05/2017 [facility] White Blood 5.7 K/uL N 3.4-10.5 [address] [place] [address] [phone] Red Blood Count 4.37 M/uL N 4.20-5.80 [...] 33.0-73.0 Lymph % 28.1 % N 20.0-42.0 [place] % 8.8 % N 0.0-10.0 Eo% 1.4 % N 0.0-6.6 Bas% 0.7 % N 0.0-1.1 Neut# 3.45 K/uL N 1.8-7.0 Lymph # 1.59 K/uL N 1.0-4.0 [place] # 0.50 K/uL N 0.0-0.8 Eos # 0.08 K/uL N 0.0-0.5 Baso # 0.04 K/uL N 0.0-0.1 Comprehensive Metabolic 11/05/2017 [facility] Glucose 111 mg/dL High 74-106 Panel [address] [place] [address] [phone] BUN 26 mg/dL High 7-18 Creatinine 1.8 mg/dL High 0.6-1.3 Glom Filtration Rate, Estimate 44 mL/min >60 If 53 mL/min >60 22 BUN/Creat 14.4 ratio Sodium 137 mmol/L N [...] Profile 11/05/2017 [facility] Cholesterol 89 mg/dL <200 23 [address] [place] [address] [phone] Triglycerides 67 mg/dL <150 24 HDL Cholesterol 40 mg/dL >40 25 LDL-Cholesterol 36 mg/dL < 100 26 Reflex add FT3? Y Reflex add FT4? Y Magnesium 11/05/2017 [facility] Magnesium 2.5 mg/dL High 1.8-2.[address] [place] [address] [phone] Reflex add FT3? Y Reflex add FT4? Y TSH Reflex FT4 11/05/2017 [facility] Thyroid Stim 2.15 uIU/mL N 0.30-4.20 And/Or FT3 [address] Hormone [place], [place] [id number] [phone] Reflex add FT3? Y Reflex add FT4? Y Glycohemoglobin 11/05/2017 [facility] Glycohemoglobin 7.6 % High 4.2-6.3 [address] (A1c) [place], [place] [id number] [phone] eAG 171 mg/dL Rapid 08/28/2017 [facility] Laboratory Influenza A POSITIVE Abnormal Negative 28 Influenza A & [phone] Molecular B Molecular Influenza B Molecular NEGATIVE Negative Glycohemoglobin 08/06/2017 [facility] Glycohemoglobin 7.7 % High 4.2-6.3 29, A1c [address] (A1c) 30 [place], [place] [id number] [phone] eAG 174 mg/dL Basic Metabolic Panel 08/06/2017 [facility] Glucose 129 mg/dL High 74-[address] [place], [place] [address] [phone] BUN 24 mg/dL High 7-18 Creatinine 1.9 mg/dL High 0.6-1.3 Glom Filtration Rate, Estimate 41 mL/min >60 If 50 mL/min >60 31 BUN/Creat 12.6 ratio Sodium 138 mmol/L N 136-145 Potassium 4.1 mmol/L N 3.5-5.1 Chloride 101 mmol/L N 98-107 Carbon Dioxide 30 mmol/L N 21-32 Anion Gap 7 mEq/L Low 8-16 Calcium 9.0 mg/dL N 8.5-10.1 LDL Cholesterol Profile 08/06/2017 [facility] Cholesterol 91 mg/dL <[address] [place], [place] [address] [phone] Triglycerides 97 mg/dL <150 33 HDL Cholesterol 35 mg/dL Low >40 34 LDL-Cholesterol 37 mg/dL < 100 35 Glycohemoglobin 04/22/2017 [facility] Glycohemoglobin 7.3 % High 4.2-6.3 [address] (A1c) [place] [address] [phone] eAG 163 mg/dL Glycohemoglobin 01/20/2017 [facility] Glycohemoglobin 7.3 % High 4.2-6.3 [address] (A1c) [place] [address] [phone] eAG 163 mg/dL Microalb/Creat 01/20/2017 [facility] Microalbumin,Urine < 6.0 < 20.0 Ratio,Random [address] mg/[place] [address] [phone] Microalbumin/Creatinine Ratio 5.9 ug/mgCrt < 30.0 Urine Creatinine Conc 102 mg/dL Basic Metabolic Panel 12/18/2016 [facility] Glucose 115 mg/dL High 74-[address] [place] [address] [phone] BUN 32 mg/dL High 7-18 Creatinine 1.9 mg/dL High 0.6-1.3 Glom Filtration Rate, Estimate 41 mL/min >60 If 50 mL/min >60 39 BUN/Creat 16.8 ratio Sodium 139 mmol/L N 136-145 Potassium 3.8 mmol/L N 3.5-5.1 Chloride 101 mmol/L N 98-107 Carbon Dioxide 32 mmol/L N 21-32 Anion Gap 6 mEq/L Low 8-16 Calcium 9.1 mg/dL N 8.5-10.1 Comprehensive 09/25/2016 [facility] Glucose 179 mg/dL High 74-106 40 Metabolic Panel [address] [place] [address] [phone] BUN 20 mg/dL High 7-18 Creatinine 1.8 mg/dL High 0.6-1.3 Glom Filtration Rate, Estimate 44 mL/min >60 If 53 mL/min >60 41 BUN/Creat 11.1 ratio Sodium 138 mmol/L N [...] add FT4? Y CBS W/Automated Diff 09/25/2016 [facility] White Blood 5.8 K/uL N 3.4-10.[address] [place] [address] [phone] Red Blood Count 4.39 M/uL N 4.20-5.80 [...] 33.0-73.0 Lymph % 27.1 % N 20.0-42.0 [place] % 7.4 % N 0.0-10.0 Eo% 1.2 % N 0.0-6.6 Bas% 0.5 % N 0.0-1.1 Neut# 3.70 K/uL N 1.8-7.0 Lymph # 1.57 K/uL N 1.0-4.0 [place] # 0.43 K/uL N 0.0-0.8 Eos # 0.07 K/uL N 0.0-0.5 Baso # 0.03 K/uL N 0.0-0.1 TSH Reflex FT4 09/25/2016 [facility] Thyroid Stim 1.28 uIU/mL N 0.30-4.20 And/Or FT3 [address] [place] [address] [phone] Reflex add FT3? Y Reflex add FT4? Y LDL Cholesterol Profile 09/25/2016 [facility] Cholesterol 95 mg/dL <200 42 [address] [place] [address] [phone] Triglycerides 80 mg/dL <150 43 HDL Cholesterol 38 mg/dL Low >40 44 LDL-Cholesterol 41 mg/dL < 100 45 Reflex add FT3? Y Reflex add FT4? Y LDL Cholesterol 06/18/2016 [facility] Cholesterol 94 mg/dL N <200 46, 47 Profile [address] [place] [address] [phone] Triglycerides 88 mg/dL N <150 48 HDL Cholesterol 36 mg/dL Low >40 49 LDL-Cholesterol 40 mg/dL N < 100 50 Basic Metabolic Panel 06/18/2016 [facility] Glucose 142 mg/dL High 74-106 [address] [place] [address] [phone] BUN 23 mg/dL High 7-18 Creatinine 1.8 mg/dL High 0.6-1.3 Glom Filtration Rate, Estimate 44 mL/min N >60 If 53 mL/min N >60 51 BUN/Creat 12.7 ratio N Sodium 137 mmol/L N 136-145 Potassium 4.3 mmol/L N 3.5-5.1 Chloride 101 mmol/L N 98-107 Carbon Dioxide 29 mmol/L N 21-32 Anion Gap 7 mEq/L Low 8-16 Calcium 9.0 mg/dL N 8.5-10.1 Comprehensive Metabolic 03/04/2016 [facility] Glucose 192 mg/dL High 74-106 Panel [address] [place] [address] [phone] BUN 22 mg/dL High 7-18 Creatinine 2.2 mg/dL High 0.6-1.3 Glom Filtration Rate, Estimate 35 mL/min >60 If 42 mL/min >60 52 BUN/Creat 10.0 ratio Sodium 136 mmol/L 136-145 [...] U/L High 45-117 LDL Cholesterol Profile 03/04/2016 [facility] Cholesterol 99 mg/dL <[address] [place] [address] [phone] Triglycerides 132 mg/dL <150 54 HDL Cholesterol 35 mg/dL Low >40 55 LDL-Cholesterol 38 mg/dL < 100 56 CBC W/Automated Diff 03/04/2016 [facility] White Blood 6.0 K/uL 3.4-10.[address] [place] [address] [phone] Red Blood Count 4.43 M/uL 4.20-5.80 Hemoglobin [...] % 33.0-73.0 Lymph % 29.0 % 17.0-56.0 [place] % 9.1 % 0.0-10.0 Eo% 1.7 % 0.0-5.0 Bas% 0.3 % 0.1-1.0 Neut# 3.62 K/uL 1.8-7.0 Lymph # 1.75 K/uL Low 1.8-7.0 [place] # 0.55 K/uL 0.0-0.8 Eos # 0.10 K/uL 0.0-0.5 Baso # 0.02 K/uL Low 0.1-0.2 Laboratory test 03/04/2016 [facility] TSH Reflex FT4 1.77 0.30-4.[address] and/or FT3 uIU/[place] [address] [phone] Glycohemoglobin 03/04/2016 [facility] Glycohemoglobin 7.7 % High 4.2-6.3 [address] (A1c) [place] [address] [phone] eAG 174 mg/dL Laboratory test 03/04/2016 [facility] Magnesium 2.2 mg/dL 1.8-2.4 finding [address] [place], [place] [address] [phone] Basic Metabolic 01/11/2016 [facility] Glucose 137 mg/dL High 74-106 Panel [address] [place] [address] [phone] BUN 39 mg/dL High 7-18 Creatinine 2.4 mg/dL High 0.6-1.3 Glom Filtration Rate, Estimate 32 mL/min >60 If 38 mL/min >60 59 BUN/Creat 16.2 ratio Sodium 136 mmol/L 136-145 Potassium 4.3 mmol/L 3.5-5.1 Chloride 103 mmol/L 98-107 Carbon Dioxide 25 mmol/L 21-32 Anion Gap 8 mEq/L 8-16 Calcium 8.8 mg/dL 8.5-10.1 Laboratory test 01/11/2016 [facility] Magnesium 2.4 mg/dL 1.8-2.4 finding [address] [place] [address] [phone] Laboratory test 11/20/2015 N2N/CCD Import Miscellaneous Test(s) [...] Blood Count 4.3 3.4-10.5 Laboratory test 11/19/2015 N2N/Breathometer Import Urine Bilirubin Negative Negative finding Urine Blood Negative Negative Urine Clarity Clear Clear Urine Color Yellow Yellow Urine Glucose (Ua) Negative Negative Urine Ketones Negative Negative Urine Leukocyte Esterase Negative Negative Urine Nitrite Negative Negative Urine Protein Negative Negative Urine Urobilinogen 0.2 0.2-1.0 Urine pH 5.0 Low 6.5-7.5 Laboratory test 11/19/2015 N2N/Breathometer Import Alanine Aminotransferase 56 12 -78 finding (Alt/SGPT) Albumin 4.1 3.4-5.0 Albumin/Globulin Ratio 1.0 Alkaline Phosphatase 137 High 45-117 Aspartate Amino Transf (Ast/Sgot) 30 15-37 Globulin 4.0 1.9-4.3 Total Bilirubin 0.9 0.2-1.0 Total Creatine Kinase 137 39-308 Total Protein 8.1 6.4-8.2 Laboratory test 11/07/2015 N2N/CCD Import Bedside Glucose 107 70-110 finding Laboratory test 10/26/2015 N2N/CCD Import Estimated Average 177 finding Glucose (eAG) Estimated GFR () 47 >60 Estimated GFR (Non- 39 >60 Hemoglobin A1c 7.8 High 4.2-6.3 Sodium Level 136 136-145 Thyroid Stimulating Hormone (TSH) 3.79 High 0.36-3.74 Laboratory test 10/26/2015 [facility] TSH Reflex 3.79 uIU/mL High 0.36-3.74 [address] FT4 and/[place] [address] FT3 [phone] Free T4 1.27 ng/dL 0.76-1.46 LDL Cholesterol Profile 10/26/2015 [facility] Cholesterol 113 mg/dL <[address] [place] [address] [phone] Triglycerides 94 mg/dL <150 62 HDL Cholesterol 34 mg/dL Low >40 63 LDL-Cholesterol 60 mg/dL < 100 64 Laboratory test 10/26/2015 [facility] Ia 2 < 1.0 . [address] Autoantibodies U/[place] [address] [phone] Glycohemoglobin A1c 10/26/2015 [facility] Glycohemoglobin 7.8 % High 4.2- [address] (A1c) 6.3 [place] [address] [phone] eAG 177 mg/dL Comprehensive Metabolic 10/26/2015 [facility] Glucose 121 mg/dL High 74-[address] [place] [address] [phone] BUN 39 mg/dL High 7-18 Creatinine 2.0 mg/dL High 0.6-1.3 Glom Filtration Rate, Estimate 39 mL/min >60 If 47 mL/min >60 67 BUN/Creat 19.5 ratio Sodium 136 mmol/L 136-145 [...] U/L 12-78 Alkaline Phosphatase 117 U/L 45-117 Laboratory test 10/08/2015 N2N/CCD Import Bedside 162 High 70-110 finding Glucose Laboratory test 09/13/2015 [facility] C-Peptide 0.9 ng/mL Low 1.1-4.4 68 finding [address] [place], [place] [address] [phone] Comprehensive 09/13/2015 [facility] Glucose 99 mg/dL 74-106 Metabolic Panel [address] [place], [place] [address] [phone] BUN 21 mg/dL High 7-18 Creatinine 1.8 mg/dL High 0.6-1.3 Glom Filtration Rate, Estimate 44 mL/min >60 If 53 mL/min >60 69 BUN/Creat 11.6 ratio Sodium 140 mmol/L 136-145 [...] Phosphatase 143 U/L High 45-117 Glycohemoglobin 09/13/2015 [facility] Glycohemoglobin 9.7 % High 4.2-6.3 [address] (A1c) [place] [address] [phone] eAG 232 mg/dL LDL Cholesterol Profile 09/13/2015 [facility] Cholesterol 104 mg/dL <[address] [place] [address] [phone] Triglycerides 104 mg/dL <150 72 HDL Cholesterol 35 mg/dL Low >40 73 LDL-Cholesterol 48 mg/dL < 100 74 Testosterone,Serum 09/13/2015 [facility] Testosterone,Serum [phone] ng/[place] [address] [phone] Comment See Note 75 CBC W/Automated Diff 09/13/2015 [facility] White Blood 5.0 K/uL 3.4-10.[address] [place] [address] [phone] Red Blood Count 4.35 M/uL 4.20-5.80 Hemoglobin [...] % 33.0-73.0 Lymph % 28.3 % 17.0-56.0 [place] % 11.0 % High 0.0-10.0 Eo% 1.8 % 0.0-5.0 Bas% 1.0 % 0.1-1.0 Neut# 2.90 K/uL 1.8-7.0 Lymph # 1.42 K/uL Low 1.8-7.0 [place] # 0.55 K/uL 0.0-0.8 Eos # 0.09 K/uL 0.0-0.5 Baso # 0.05 K/uL Low 0.1-0.2 Microalbumin,Random 09/13/2015 [facility] Microalbumin,Urine < 5.0 < 20.[address] mg/[place] [address] [phone] Laboratory test 09/13/2015 N2N/CCD Import Basophils # [...] 36-51 Reference Lab Test Comments See Note 76 Sodium Level 140 136-145 Testosterone Level [phone] Laboratory test 08/20/2015 N2N/CCD Import Bedside Glucose [...] N2N/CCD Import Estimated GFR ( 48 >60 [place]ian) Estimated GFR (Non- 39 >60 Sodium Level 136 136-145 Laboratory test finding 06/27/2015 [facility] Magnesium 2.4 mg/dL 1.8-2.4 [address] [place] [address] [phone] Free T3 2.29 pg/mL 2.18-3.98 Free T4 1.40 ng/dL 0.76-1.46 Basic Metabolic Panel 06/27/2015 [facility] Glucose 182 mg/dL High 74-[address] [place], [place] [id number] [phone] BUN 30 mg/dL High 7-18 Creatinine 2.0 mg/dL High 0.6-1.3 Glom Filtration Rate, Estimate 39 mL/min >60 If 48 mL/min >60 77 BUN/Creat 15.0 ratio Sodium 136 mmol/L 136-145 Potassium 4.1 mmol/L 3.5-5.1 Chloride 100 mmol/L 98-107 Carbon Dioxide 30 mmol/L 21-32 Anion Gap 6 mEq/L Low 8-16 Calcium 9.6 mg/dL 8.5-10.1 Laboratory test 06/27/2015 [facility] TSH Reflex 4.08 High 0.36-3.[address] FT4 and/or uIU/[place] [address] FT3 [phone] Basic Metabolic 05/10/2015 [facility] Glucose 155 mg/dL High 74-[address] [place] [address] [phone] BUN 28 mg/dL High 7-18 Creatinine 1.9 mg/dL High 0.6-1.3 Glom Filtration Rate, Estimate 42 mL/min >60 If 50 mL/min >60 79 BUN/Creat 14.7 ratio Sodium 136 mmol/L 136-145 Potassium 4.3 mmol/L 3.5-5.1 Chloride 103 mmol/L 98-107 Carbon Dioxide 32 mmol/L 21-32 Anion Gap 1 mEq/L Low 8-16 Calcium 9.7 mg/dL 8.5-10.1 Laboratory test 05/10/2015 [facility] Thyroid Stim 4.72 High 0.36-3.[address] Hormone uIU/[place] [address] [phone] Glycohemoglobin 05/10/2015 [facility] Glycohemoglobin 8.2 % High 4.2-6.[address] (A1c) [place] [address] [phone] eAG 189 mg/dL Laboratory test finding 05/10/2015 N2N/CCD Import Estimated Average 189 Glucose (eAG) Estimated GFR () 50 >60 Estimated GFR (Non- 42 >60 Hemoglobin A1c 8.2 High 4.2-6.3 Sodium Level 136 136-145 Basic Metabolic Panel 04/17/2015 [facility] Glucose 139 mg/dL High 74-106 [address] [place] [address] [phone] BUN 35 mg/dL High 7-18 Creatinine 2.5 mg/dL High 0.6-1.3 Glom Filtration Rate, Estimate 30 mL/min >60 If 37 mL/min >60 81 BUN/Creat 14.0 ratio Sodium 137 mmol/L 136-145 Potassium 4.6 mmol/L 3.5-5.1 Chloride 101 mmol/L 98-107 Carbon Dioxide 27 mmol/L 21-32 Anion Gap 9 mEq/L 8-16 Calcium 9.2 mg/dL 8.5-10.1 CBS W/Automated Diff 04/17/2015 [facility] White Blood 5.5 K/uL 3.4-10.[address] [place] [address] [phone] Red Blood Count 3.78 M/uL Low 4.20-5.80 [...] % 33.0-73.0 Lymph % 26.5 % 17.0-56.0 [place] % 9.0 % 0.0-10.0 Eo% 1.8 % 0.0-5.0 Bas% 0.7 % 0.1-1.0 Neut# 3.39 K/uL 1.8-7.0 Lymph # 1.45 K/uL Low 1.8-7.0 [place] # 0.49 K/uL 0.0-0.8 Eos # 0.10 K/uL 0.0-0.5 Baso # 0.04 K/uL Low 0.1-0.2 LDL Cholesterol 04/17/2015 [facility] Cholesterol 113 mg/dL < 200 82 Profile [address] [place] [address] [phone] Triglycerides 154 mg/dL < 150 83 HDL Cholesterol 39 mg/dL > 40 84 LDL-Cholesterol 43 mg/dL < 100 85 Liver Function Tests 04/17/2015 [facility] Total Protein 7.8 g/dL 6.4-8.2 [address] [place] [address] [phone] Albumin 4.2 g/dL 3.4-5.0 Globulin 3.6 g/dL 1.9-4.3 Alb/Glob 1.2 ratio Bilirubin,Total 0.7 mg/dL 0.2-1.0 Bilirubin,Direct 0.2 mg/dL 0.0-0.2 Bilirubin,Indirect 0.5 mg/dL 0.0-0.9 Sgot/Ast 23 U/L 15-37 SGPT/Alt 54 U/L 12-78 Alkaline Phosphatase 112 U/L 45-117 Laboratory test finding 04/17/2015 [facility] Magnesium 2.2 mg/dL 1.8-2.4 [address] [place] [address] [phone] Thyroid Stim Hormone 10.00 uIU/mL High 0.36-3.74 Basic Metabolic Panel 01/15/2015 [facility] Glucose 326 mg/dL High 74-106 [address] [place] [address] [phone] BUN 29 mg/dL High 7-18 Creatinine 1.9 mg/dL High 0.6-1.3 Glom Filtration Rate, Estimate 42 mL/min >60 If 50 mL/min >60 86 BUN/Creat 15.2 ratio Sodium 135 mmol/L Low 136-145 Potassium 4.8 mmol/L 3.5-5.1 Chloride 96 mmol/L Low 98-107 Carbon Dioxide 30 mmol/L 21-32 Anion Gap 9 mEq/L 8-16 Calcium 9.1 mg/dL 8.5-10.1 Liver Function Tests 01/15/2015 [facility] Total Protein 8.1 g/dL 6.4-8.2 [address] [place] [address] [phone] Albumin 4.4 g/dL 3.4-5.0 Globulin 3.7 g/dL 1.9-4.3 Alb/Glob 1.2 ratio Bilirubin,Total 0.8 mg/dL 0.2-1.0 Bilirubin,Direct 0.2 mg/dL 0.0-0.2 Bilirubin,Indirect 0.6 mg/dL 0.0-0.9 Sgot/Ast 27 U/L 15-37 SGPT/Alt 54 U/L 12-78 Alkaline Phosphatase 105 U/L 45-117 Laboratory test finding 01/15/2015 [facility] Magnesium 2.1 mg/dL 1.8-2.4 [address] [place] [address] [phone] TSH Reflex FT4 and/or FT3 12.80 uIU/mL High 0.36-3.74 87 Free T3 2.03 pg/mL Low 2.18-3.98 Free T4 1.03 ng/dL 0.76-1.46 Laboratory test 12/11/2014 [facility] Magnesium 2.1 mg/dL 1.8-2.4 88 finding [address] [place] [address] [phone] TSH Reflex FT4 and/or FT3 25.80 uIU/mL High 0.36-3.74 89 Ferritin 268 ng/mL 26-388 Free T3 2.06 pg/mL Low 2.18-3.98 Free T4 0.80 ng/dL 0.76-1.46 LDL Cholesterol 12/11/2014 [facility] Cholesterol 129 mg/dL < 200 90 Profile [address] [place] [address] [phone] Triglycerides 105 mg/dL < 150 91 HDL Cholesterol 53 mg/dL > 40 92 LDL-Cholesterol 55 mg/dL < 100 93 CBS W/Automated Diff 12/11/2014 [facility] White Blood 5.4 K/uL 3.4-10.5 [address] [facility] [place] [address] [phone] Red Blood Count 4.01 M/uL Low 4.20-5.80 [...] % 33.0-73.0 Lymph % 30.1 % 17.0-56.0 [place] % 11.5 % High 0.0-10.0 Eo% 2.8 % 0.0-5.0 Bas% 1.1 % High 0.1-1.0 Neut# 2.94 K/uL 1.8-7.0 Lymph # 1.62 K/uL Low 1.8-7.0 [place] # 0.62 K/uL 0.0-0.8 Eos # 0.15 K/uL 0.0-0.5 Baso # 0.06 K/uL Low 0.1-0.2 Comprehensive Metabolic 12/11/2014 [facility] Glucose 174 mg/dL High 74-106 Panel [address] [place] [address] [phone] BUN 23 mg/dL High 7-18 Creatinine 1.9 [...] U/L 12-78 Alkaline Phosphatase 113 U/L 45-117 Laboratory test 10/20/2014 [facility] Import Creatine Kinase MB 8.4 High 0.5 -3.6 finding Fraction Total Creatine Kinase 557 *H 39-308 Troponin I 13.300 *H Laboratory test 10/20/2014 [facility] [employer] 1.1 0.9-1.1 finding Normalized [...] White Blood Count 11.9 High 3.4-10.5 Laboratory 10/20/2014 [facility] Aot Request Test(s) 95 test finding [address] [place] [address] [phone] Laboratory 10/20/2014 [facility] Import Miscellaneous Test(s) test finding Test Comment added Laboratory 10/20/2014 [facility] Import Urine Bilirubin Negative Negative test finding Urine Blood Trace Negative Urine Clarity Clear Clear Urine Color Yellow Yellow Urine Glucose (Ua) 500 High Negative Urine Ketones Negative Negative Urine Leukocyte Esterase Negative Negative Urine Nitrite Negative Negative Urine Protein 30 High Negative Urine Specific [place] 1.025 1.010-1.030 Urine Urobilinogen 1.0 0.2-1.0 Urine pH 6.0 Low 6.5-7.5 Laboratory test 10/20/2014 [facility] Import Basophils # (Auto) 0.02 Low 0.1 [...] for more aggressive treatment of glycemia. The [place] [employer] recommends that a primary goal of therapy should be a HbA1c of <7% and that physicians should re-evaluate the treatment regimen in patients with HbA1c values consistently >8%. 3 E03.9 4 E11.65 5 Elevated levels of HbA1c suggest the need for more aggressive treatment of glycemia. The [place] [employer] recommends that a primary goal of therapy should be a HbA1c of <7% and that physicians should re-evaluate the treatment regimen in patients with HbA1c values consistently >8%. 6 Note: Persistent reduction for 3 months or more in an eGFR <60 mL/min/1.73 m2 defines CKD. Patients with eGFR values >/=60 mL/min/1.73 m2 may also have CKD if evidence of persistent proteinuria is present. The original MDRD equation for estimated GFR is not valid for patients less than 18 years of age. Additional information may be found at [email or web address]. 7 Reference Guidelines*: Desirable: ........... < 200 mg/dL Borderline High: ..... 200-239 mg/dL High: ................ >=240 mg/dL * The National Cholesterol Education Program (NCEP) 8 Reference Guidelines*: Normal: ............. < 150 mg/dL Borderline High: .... 150-199 mg/dL High: ............... 200-499 mg/dL Very High: .......... > 500 mg/dL * Source: National Cholesterol Education Program (NCEP) 9 Reference Guidelines*: Low HDL: ..... < 40 mg/dL Normal: ..... 40-60 mg/dL Desirable: ... > 60 mg/dL *The National Cholesterol Education Program(NCEP) 10 Reference Guidelines*: Optimal:........... <100 mg/dL Near Optimal....... 100-129 mg/dL Borderline High.... 130-159 mg/dL High............... 160-189 mg/dL Very High.......... >=190 mg/dL * Source: National Cholesterol Education Program (NCEP) 11 I25.10 ATHSCL HEART DISEASE OF [place] CORONARY ART 12 Note: Persistent reduction for 3 months or more in an eGFR <60 mL/min/1.73 m2 defines CKD. Patients with eGFR values >/=60 mL/min/1.73 m2 may also have CKD if evidence of persistent proteinuria is present. The original MDRD equation for estimated GFR is not valid for patients less than 18 years of age. Additional information may be found at [email or web address]. 13 Elevated levels of HbA1c suggest the need for more aggressive treatment of glycemia. The [place] [employer] recommends that a primary goal of therapy should be a HbA1c of <7% and that physicians should re-evaluate the treatment regimen in patients with HbA1c values consistently >8%. 14 Reference Guidelines*: Desirable: ........... < 200 mg/dL Borderline High: ..... 200-239 mg/dL High: ................ >=240 mg/dL * The National Cholesterol Education Program (NCEP) 15 Reference Guidelines*: Normal: ............. < 150 mg/dL Borderline High: .... 150-199 mg/dL High: ............... 200-499 mg/dL Very High: .......... > 500 mg/dL * Source: National Cholesterol Education Program (NCEP) 16 Reference Guidelines*: Low HDL: ..... < 40 mg/dL Normal: ..... 40-60 mg/dL Desirable: ... > 60 mg/dL *The National Cholesterol Education Program(NCEP) 17 Reference Guidelines*: Optimal:........... <100 mg/dL Near Optimal....... 100-129 mg/dL Borderline High.... 130-159 mg/dL High............... 160-189 mg/dL Very High.......... >=190 mg/dL * Source: National Cholesterol Education Program (NCEP) 18 E11.9 N18.3 19 Elevated levels of HbA1c suggest the need for more aggressive treatment of glycemia. The [place] [employer] recommends that a primary goal of therapy should be a HbA1c of <7% and that physicians should re-evaluate the treatment regimen in patients with HbA1c values consistently >8%. 20 Note: Persistent reduction for 3 months or more in an eGFR <60 mL/min/1.73 m2 defines CKD. Patients with eGFR values >/=60 mL/min/1.73 m2 may also have CKD if evidence of persistent proteinuria is present. The original MDRD equation for estimated GFR is not valid for patients less than 18 years of age. Additional information may be found at [email or web address]. 21 I25.5 E11.9 22 Note: Persistent reduction for 3 months or more in an eGFR <60 mL/min/1.73 m2 defines CKD. Patients with eGFR values >/=60 mL/min/1.73 m2 may also have CKD if evidence of persistent proteinuria is present. The original MDRD equation for estimated GFR is not valid for patients less than 18 years of age. Additional information may be found at [email or web address]. 23 Reference Guidelines*: Desirable: ........... < 200 mg/dL Borderline High: ..... 200-239 mg/dL High: ................ >=240 mg/dL * The National Cholesterol Education Program (NCEP) 24 Reference Guidelines*: Normal: ............. < 150 mg/dL Borderline High: .... 150-199 mg/dL High: ............... 200-499 mg/dL Very High: .......... > 500 mg/dL * Source: National Cholesterol Education Program (NCEP) 25 Reference Guidelines*: Low HDL: ..... < 40 mg/dL Normal: ..... 40-60 mg/dL Desirable: ... > 60 mg/dL *The National Cholesterol Education Program(NCEP) 26 Reference Guidelines*: Optimal:........... <100 mg/dL Near Optimal....... 100-129 mg/dL Borderline High.... 130-159 mg/dL High............... 160-189 mg/dL Very High.......... >=190 mg/dL * Source: National Cholesterol Education Program (NCEP) 27 Elevated levels of HbA1c suggest the need for more aggressive treatment of glycemia. The [place] [employer] recommends that a primary goal of therapy should be a HbA1c of <7% and that physicians should re-evaluate the treatment regimen in patients with HbA1c values consistently >8%. 28 Financial Services Director: [id number] 29 E11.9 30 Elevated levels of HbA1c suggest the need for more aggressive treatment of glycemia. The [place] [employer] recommends that a primary goal of therapy should be a HbA1c of <7% and that physicians should re-evaluate the treatment regimen in patients with HbA1c values consistently >8%. 31 Note: Persistent reduction for 3 months or more in an eGFR <60 mL/min/1.73 m2 defines CKD. Patients with eGFR values >/=60 mL/min/1.73 m2 may also have CKD if evidence of persistent proteinuria is present. The original MDRD equation for estimated GFR is not valid for patients less than 18 years of age. Additional information may be found at [email or web address]. 32 Reference Guidelines*: Desirable: ........... < 200 mg/dL Borderline High: ..... 200-239 mg/dL High: ................ >=240 mg/dL * The National Cholesterol Education Program (NCEP) 33 Reference Guidelines*: Normal: ............. < 150 mg/dL Borderline High: .... 150-199 mg/dL High: ............... 200-499 mg/dL Very High: .......... > 500 mg/dL * Source: National Cholesterol Education Program (NCEP) 34 Reference Guidelines*: Low HDL: ..... < 40 mg/dL Normal: ..... 40-60 mg/dL Desirable: ... > 60 mg/dL *The National Cholesterol Education Program(NCEP) 35 Reference Guidelines*: Optimal:........... <100 mg/dL Near Optimal....... 100-129 mg/dL Borderline High.... 130-159 mg/dL High............... 160-189 mg/dL Very High.......... >=190 mg/dL * Source: National Cholesterol Education Program (NCEP) 36 Elevated levels of HbA1c suggest the need for more aggressive treatment of glycemia. The [place] [employer] recommends that a primary goal of therapy should be a HbA1c of <7% and that physicians should re-evaluate the treatment regimen in patients with HbA1c values consistently >8%. 37 Elevated levels of HbA1c suggest the need for more aggressive treatment of glycemia. The [place] [employer] recommends that a primary goal of therapy should be a HbA1c of <7% and that physicians should re-evaluate the treatment regimen in patients with HbA1c values consistently >8%. 38 I25.5 39 Note: Persistent reduction for 3 months or more in an eGFR <60 mL/min/1.73 m2 defines CKD. Patients with eGFR values >/=60 mL/min/1.73 m2 may also have CKD if evidence of persistent proteinuria is present. The original MDRD equation for estimated GFR is not valid for patients less than 18 years of age. Additional information may be found at [email or web address]. 40 I47.2 41 Note: Persistent reduction for 3 months or more in an eGFR <60 mL/min/1.73 m2 defines CKD. Patients with eGFR values >/=60 mL/min/1.73 m2 may also have CKD if evidence of persistent proteinuria is present. The original MDRD equation for estimated GFR is not valid for patients less than 18 years of age. Additional information may be found at [email or web address]. 42 Reference Guidelines*: Desirable: ........... < 200 mg/dL Borderline High: ..... 200-239 mg/dL High: ................ >=240 mg/dL * The National Cholesterol Education Program (NCEP) 43 Reference Guidelines*: Normal: ............. < 150 mg/dL Borderline High: .... 150-199 mg/dL High: ............... 200-499 mg/dL Very High: .......... > 500 mg/dL * Source: National Cholesterol Education Program (NCEP) 44 Reference Guidelines*: Low HDL: ..... < 40 mg/dL Normal: ..... 40-60 mg/dL Desirable: ... > 60 mg/dL *The National Cholesterol Education Program(NCEP) 45 Reference Guidelines*: Optimal:........... <100 mg/dL Near Optimal....... 100-129 mg/dL Borderline High.... 130-159 mg/dL High............... 160-189 mg/dL Very High.......... >=190 mg/dL * Source: National Cholesterol Education Program (NCEP) 46 N18.3 47 Reference Guidelines*: Desirable: ........... < 200 mg/dL Borderline High: ..... 200-239 mg/dL High: ................ >=240 mg/dL * The National Cholesterol Education Program (NCEP) 48 Reference Guidelines*: Normal: ............. < 150 mg/dL Borderline High: .... 150-199 mg/dL High: ............... 200-499 mg/dL Very High: .......... > 500 mg/dL * Source: National Cholesterol Education Program (NCEP) 49 Reference Guidelines*: Low HDL: ..... < 40 mg/dL Normal: ..... 40-60 mg/dL Desirable: ... > 60 mg/dL *The National Cholesterol Education Program(NCEP) 50 Reference Guidelines*: Optimal:........... <100 mg/dL Near Optimal....... 100-129 mg/dL Borderline High.... 130-159 mg/dL High............... 160-189 mg/dL Very High.......... >=190 mg/dL * Source: National Cholesterol Education Program (NCEP) 51 Note: Persistent reduction for 3 months or more in an eGFR <60 mL/min/1.73 m2 defines CKD. Patients with eGFR values >/=60 mL/min/1.73 m2 may also have CKD if evidence of persistent proteinuria is present. The original MDRD equation for estimated GFR is not valid for patients less than 18 years of age. Additional information may be found at [email or web address]. 52 Note: Persistent reduction for 3 months or more in an eGFR <60 mL/min/1.73 m2 defines CKD. Patients with eGFR values >/=60 mL/min/1.73 m2 may also have CKD if evidence of persistent proteinuria is present. The original MDRD equation for estimated GFR is not valid for patients less than 18 years of age. Additional information may be found at [email or web address]. 53 Reference Guidelines*: Desirable: ........... < 200 mg/dL Borderline High: ..... 200-239 mg/dL High: ................ >=240 mg/dL * The National Cholesterol Education Program (NCEP) 54 Reference Guidelines*: Normal: ............. < 150 mg/dL Borderline High: .... 150-199 mg/dL High: ............... 200-499 mg/dL Very High: .......... > 500 mg/dL * Source: National Cholesterol Education Program (NCEP) 55 Reference Guidelines*: Low HDL: ..... < 40 mg/dL Normal: ..... 40-60 mg/dL Desirable: ... > 60 mg/dL *The National Cholesterol Education Program(NCEP) 56 Reference Guidelines*: Optimal:........... <100 mg/dL Near Optimal....... 100-129 mg/dL Borderline High.... 130-159 mg/dL High............... 160-189 mg/dL Very High.......... >=190 mg/dL * Source: National Cholesterol Education Program (NCEP) 57 QUERY: Reflex add FT3? Y QUERY: Reflex add FT4? Y 58 Elevated levels of HbA1c suggest the need for more aggressive treatment of glycemia. The [place] [employer] recommends that a primary goal of therapy should be a HbA1c of <7% and that physicians should re-evaluate the treatment regimen in patients with HbA1c values consistently >8%. 59 Note: Persistent reduction for 3 months or more in an eGFR <60 mL/min/1.73 m2 defines CKD. Patients with eGFR values >/=60 mL/min/1.73 m2 may also have CKD if evidence of persistent proteinuria is present. The original MDRD equation for estimated GFR is not valid for patients less than 18 years of age. Additional information may be found at [email or web address]. 60 QUERY: Reflex add FT3? N QUERY: Reflex add FT4? Y 61 Reference Guidelines*: Desirable: ........... < 200 mg/dL Borderline High: ..... 200-239 mg/dL High: ................ >=240 mg/dL * The National Cholesterol Education Program (NCEP) 62 Reference Guidelines*: Normal: ............. < 150 mg/dL Borderline High: .... 150-199 mg/dL High: ............... 200-499 mg/dL Very High: .......... > 500 mg/dL * Source: National Cholesterol Education Program (NCEP) 63 Reference Guidelines*: Low HDL: ..... < 40 mg/dL Normal: ..... 40-60 mg/dL Desirable: ... > 60 mg/dL *The National Cholesterol Education Program(NCEP) 64 Reference Guidelines*: Optimal:........... <100 mg/dL Near Optimal....... 100-129 mg/dL Borderline High.... 130-159 mg/dL High............... 160-189 mg/dL Very High.......... >=190 mg/dL * Source: National Cholesterol Education Program (NCEP) 65 Reference Range: <1.0 Negative > or=1.0 Positive Performed at: - [facility] [address] [place] [id number] Movement Education Specialist: Sumanth Alex MD, Phone: [phone] 66 Elevated levels of HbA1c suggest the need for more aggressive treatment of glycemia. The [place] [employer] recommends that a primary goal of therapy should be a HbA1c of <7% and that physicians should re-evaluate the treatment regimen in patients with HbA1c values consistently >8%. 67 Note: Persistent reduction for 3 months or more in an eGFR <60 mL/min/1.73 m2 defines CKD. Patients with eGFR values >/=60 mL/min/1.73 m2 may also have CKD if evidence of persistent proteinuria is present. The original MDRD equation for estimated GFR is not valid for patients less than 18 years of age. Additional information may be found at [email or web address]. 68 C-Peptide reference interval is for fasting patients. 69 Note: Persistent reduction for 3 months or more in an eGFR <60 mL/min/1.73 m2 defines CKD. Patients with eGFR values >/=60 mL/min/1.73 m2 may also have CKD if evidence of persistent proteinuria is present. The original MDRD equation for estimated GFR is not valid for patients less than 18 years of age. Additional information may be found at [email or web address]. 70 Elevated levels of HbA1c suggest the need for more aggressive treatment of glycemia. The [place] [employer] recommends that a primary goal of therapy should be a HbA1c of <7% and that physicians should re-evaluate the treatment regimen in patients with HbA1c values consistently >8%. 71 Reference Guidelines*: Desirable: ........... < 200 mg/dL Borderline High: ..... 200-239 mg/dL High: ................ >=240 mg/dL * The National Cholesterol Education Program (NCEP) 72 Reference Guidelines*: Normal: ............. < 150 mg/dL Borderline High: .... 150-199 mg/dL High: ............... 200-499 mg/dL Very High: .......... > 500 mg/dL * Source: National Cholesterol Education Program (NCEP) 73 Reference Guidelines*: Low HDL: ..... < 40 mg/dL Normal: ..... 40-60 mg/dL Desirable: ... > 60 mg/dL *The National Cholesterol Education Program(NCEP) 74 Reference Guidelines*: Optimal:........... <100 mg/dL Near Optimal....... 100-129 mg/dL Borderline High.... 130-159 mg/dL High............... 160-189 mg/dL Very High.......... >=190 mg/dL * Source: National Cholesterol Education Program (NCEP) 75 Adult male reference interval is based on a population of lean males up to 40 years old. Performed at: - [facility] [address] [id number] Movement Education Specialist: Nubia Rocha MD, Phone: [phone] 76 Adult male reference interval is based on a population of lean males up to 40 years old. Performed at: RN - [facility] [address] [id number] Movement Education Specialist: Nubia Rocha MD, Phone: [phone] 77 Note: Persistent reduction for 3 months or more in an eGFR <60 mL/min/1.73 m2 defines CKD. Patients with eGFR values >/=60 mL/min/1.73 m2 may also have CKD if evidence of persistent proteinuria is present. The original MDRD equation for estimated GFR is not valid for patients less than 18 years of age. Additional information may be found at [email or web address]. 78 QUERY: Reflex add FT3? Y QUERY: Reflex add FT4? Y 79 Note: Persistent reduction for 3 months or more in an eGFR <60 mL/min/1.73 m2 defines CKD. Patients with eGFR values >/=60 mL/min/1.73 m2 may also have CKD if evidence of persistent proteinuria is present. The original MDRD equation for estimated GFR is not valid for patients less than 18 years of age. Additional information may be found at [email or web address]. 80 Elevated levels of HbA1c suggest the need for more aggressive treatment of glycemia. The [place] [employer] recommends that a primary goal of therapy should be a HbA1c of <7% and that physicians should re-evaluate the treatment regimen in patients with HbA1c values consistently >8%. 81 Note: Persistent reduction for 3 months or more in an eGFR <60 mL/min/1.73 m2 defines CKD. Patients with eGFR values >/=60 mL/min/1.73 m2 may also have CKD if evidence of persistent proteinuria is present. The original MDRD equation for estimated GFR is not valid for patients less than 18 years of age. Additional information may be found at [email or web address]. 82 Reference Guidelines*: Desirable: ........... < 200 mg/dL Borderline High: ..... 200-239 mg/dL High: ................ >=240 mg/dL * The National Cholesterol Education Program (NCEP) 83 Reference Guidelines*: Normal: ............. < 150 mg/dL Borderline High: .... 150-199 mg/dL High: ............... 200-499 mg/dL Very High: .......... > 500 mg/dL * Source: National Cholesterol Education Program (NCEP) 84 Reference Guidelines*: Low HDL: ..... < 40 mg/dL Normal: ..... 40-60 mg/dL Desirable: ... > 60 mg/dL *The National Cholesterol Education Program(NCEP) 85 Reference Guidelines*: Optimal:........... <100 mg/dL Near Optimal....... 100-129 mg/dL Borderline High.... 130-159 mg/dL High............... 160-189 mg/dL Very High.......... >=190 mg/dL * Source: National Cholesterol Education Program (NCEP) 86 Note: Persistent reduction for 3 months or more in an eGFR <60 mL/min/1.73 m2 defines CKD. Patients with eGFR values >/=60 mL/min/1.73 m2 may also have CKD if evidence of persistent proteinuria is present. The original MDRD equation for estimated GFR is not valid for patients less than 18 years of age. Additional information may be found at [email or web address]. 87 QUERY: Reflex add FT3? Y QUERY: Reflex add FT4? Y 88 pt notified. Synthroid increased to 75 mcg 89 QUERY: Reflex add FT3? Y QUERY: Reflex add FT4? Y 90 Reference Guidelines*: Desirable: ........... < 200 mg/dL Borderline High: ..... 200-239 mg/dL High: ................ >=240 mg/dL * The National Cholesterol Education Program (NCEP) 91 Reference Guidelines*: Normal: ............. < 150 mg/dL Borderline High: .... 150-199 mg/dL High: ............... 200-499 mg/dL Very High: .......... > 500 mg/dL * Source: National Cholesterol Education Program (NCEP) 92 Reference Guidelines*: Low HDL: ..... < 40 mg/dL Normal: ..... 40-60 mg/dL Desirable: ... > 60 mg/dL *The National Cholesterol Education Program(NCEP) 93 Reference Guidelines*: Optimal:........... <100 mg/dL Near Optimal....... 100-129 mg/dL Borderline High.... 130-159 mg/dL High............... 160-189 mg/dL Very High.......... >=190 mg/dL * Source: National Cholesterol Education Program (NCEP) 94 Note: Persistent reduction for 3 months or more in an eGFR <60 mL/min/1.73 m2 defines CKD. Patients with eGFR values >/=60 mL/min/1.73 m2 may also have CKD if evidence of persistent proteinuria is present. The original MDRD equation for estimated GFR is not valid for patients less than 18 years of age. Additional information may be found at www.kdoqi.org. 95 Tests: ck and MB fraction Instructions: Procedures Date Code Description Status 08/25/2018 14931 Cardioversion/Defibril. Single Lead Pacemaker Completed 05/14/2018 59509 Echocardiogram Complete Completed 05/06/2018 05726 Cardioversion/Defibril. Single Lead Pacemaker Completed 05/06/2018 79441 EKG-Tracing And Report Completed 02/05/2018 783902117 Diabetic Foot Exam Completed 02/05/2018 29996 Pare Hyperkeratotic Lesion, Single Completed 11/05/2017 92446 Pare Hyperkeratotic Lesion, Single Completed 10/29/2017 97941 Dual Pacemaker Programming Anayisis, Review And Report Completed 08/14/2017 77150 Pare Hyperkeratotic Lesion, Single Completed 07/16/2017 41844 Myocardial Imaging Tomographic Multiple Study AT Rest Completed Or Stress 07/16/2017 38198 Stress Test Interpre And Report Only Completed 07/16/2017 53464 Stress Test Physician Super Only Completed 05/13/2017 53934 Echocardiogram Complete Completed 02/25/2017 86480 Cardioversion/Defibril. Single Lead Pacemaker Completed 02/25/2017 52608 Cardioversion/Defibril. Single Lead Pacemaker Completed 02/04/2017 17532 EKG-Tracing And Report Completed 10/30/2016 68849 Cardioversion/Defibril. Single Lead Pacemaker Completed 10/30/2016 98035 Cardioversion/Defibril. Single Lead Pacemaker Completed 06/26/2016 81439 Cardioversion/Defibril. Single Lead Pacemaker Completed 06/26/2016 91947 Cardioversion/Defibril. Single Lead Pacemaker Completed 06/11/2016 41917 Myocardial Imaging Tomographic Multiple Study AT Rest Completed Or Stress 06/11/2016 02989 Echocardiogram Complete Completed 06/11/2016 28957 Stress Test Interpre And Report Only Completed 06/11/2016 28505 Stress Test Physician Super Only Completed 11/28/2015 16128 Cardioversion/Defibril. Single Lead Pacemaker Completed 11/22/2015 00811 Bronchospasm Provocation Evaluation Multi Spirometric Completed Determinati 11/22/2015 89966 Spirometry Completed 11/19/2015 72614 EKG Interpretation And Report Only Completed 10/28/2015 86641 Glucose Monitoring Interpetation And Report Completed 08/20/2015 05224 Echocardiogram Complete Completed 08/18/2015 06879 EKG Interpretation And Report Only Completed 06/27/2015 97631 Cardioversion/Defibril. Single Lead Pacemaker Completed 06/27/2015 03345 Cardioversion/Defibril. Single Lead Pacemaker Completed 06/27/2015 67244 EKG-Tracing And Report Completed 04/17/2015 03967 Cardioversion/Defibril. Single Lead Pacemaker Completed 04/02/2015 25 Disability Form Completed 03/05/2015 89148 Echocardiogram Complete Completed 03/05/2015 44301 Stress Test Interpre And Report Only Completed 03/05/2015 95300 Stress Test Physician Super Only Completed 03/05/2015 59177 Stress Test Physician Super Only Completed 03/05/2015 49526 Myocardial Imaging Tomographic Multiple Study AT Rest Completed Or Stress 03/01/2015 00814 EKG-Tracing And Report Completed 02/21/2015 93605 Cardioversion/Defibril. Single Lead Pacemaker Completed 02/21/2015 54870 Cardioversion/Defibril. Single Lead Pacemaker Completed 12/16/2014 41638 Echocardiogram Complete Completed 12/11/2014 16856 EKG-Tracing And Report Completed 10/20/2014 59403 EKG Interpretation And Report Only Completed 10/20/2014 82900 Echocardiogram Complete Completed 05/13/2011 53231 Radiology, Knee 3 Views Completed 05/13/2011 22768 Radiology, L-S Spine 2 Or 3 Views Completed 03/17/2009 93748 Echocardiogram Complete Completed Encounters Type Date Location Provider Dx Diagnosis Office Visit 12/13/2018 Family Efrain Sampson MD E78.5 Hyperlipidemia, 9:00a [place] unspecified E11.9 Type 2 diabetes mellitus without [...] Visit 08/12/2018 3:00p Family Efrain Sampson, E03.[address], MD unspecified R06.02 Shortness of breath M25.511 Pain in right shoulder E11.9 Type 2 diabetes mellitus without complications Office Visit 06/28/2018 8:30a Family Medicine Efrain Cagle MD M54.[address] M25.511 Pain in right shoulder E78.5 Hyperlipidemia, unspecified E03.9 Hypothyroidism, unspecified E11.65 Type 2 diabetes mellitus with hyperglycemia Office Visit 05/06/2018 11:00a Cardiology Office Wm I25.10 Athscl heart Tigsit [place], [place] disease of redding coronary artery w/o ang pctrs I47.2 Ventricular [...] MD cardiomyopathy 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 mellitus without complications N18.3 Chronic kidney disease, stage 3 (moderate) E03.9 Hypothyroidism, unspecified Office Visit 09/24/2016 10:40a Cardiology Office Bia Todd I25.5 Ischemic MD cardiomyopathy 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/o ang pctrs I50.42 Chronic [...] 3 (moderate) 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/o ang pctrs R00.1 Bradycardia, [...] failure, unspecified 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/o ang pctrs Z95.810 Presence [...] hrt fail 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/o ang pctrs Z95.810 Presence [...] Ischemic cardiomyopathy 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/o [facility] pctrs Z95.810 Presence of automatic (implantable) cardiac defibrillator I49.01 Ventricular fibrillation I10 Essential (primary) hypertension R42 Dizziness and giddiness R07.9 Chest pain, unspecified E11.9 Type 2 diabetes mellitus without complications Office Visit 08/20/2015 Cardiology Dilan Skinner R07.9 Chest pain, 9:37a Office Marcia Ríos, [facility] unspecified Office Visit 08/18/2015 [place] Brandee Chao, R07.9 Chest pain, 11:25a [facility] unspecified Center Office Visit 06/27/2015 Cardiology Bia Todd MD I25.5 Ischemic 10:30a Office cardiomyopathy I49.01 Ventricular fibrillation 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/o [facility] pctrs Z95.810 Presence of automatic (implantable) cardiac defibrillator I10 Essential (primary) hypertension R42 Dizziness and giddiness 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 Office Visit 05/16/2015 2:30p Cardiology Office Bia Todd, I25.5 Ischemic MD cardiomyopathy 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/o [facility] pctrs Z95.810 Presence of automatic (implantable) cardiac defibrillator I49.01 Ventricular fibrillation I10 Essential (primary) hypertension R53.82 Chronic fatigue, unspecified 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 N19 Unspecified kidney failure Office Visit 04/17/2015 Cardiology Bia Todd, 414.01 Coronary 2:30p Office MD Atherosclerosis [place] 427.41 Ventricular Fibrillation V45.02 Cardiac Defibrillator Automatic Implantable Postsurgical 428.0 Congestive Heart Failure Unspecified 401.1 Hypertension Benign Office Visit 03/01/2015 9:00a Cardiology Office Bia Todd, 427.41 Ventricular MD Fibrillation V45.02 Cardiac Defibrillator Automatic Implantable Postsurgical 428.0 Congestive Heart Failure Unspecified 414.01 Coronary Atherosclerosis [place] 786.05 Shortness Of Breath Office Visit 01/15/2015 3:30p Cardiology Office Bia Todd, 428.0 Congestive Heart MD Failure Unspecified 414.01 Coronary Atherosclerosis [place] V45.02 Cardiac Defibrillator Automatic Implantable Postsurgical 427.41 Ventricular Fibrillation Office Visit 12/11/2014 1:30p Cardiology Office Bia Todd, 410.90 Myocardial Infarc MD Acute Unspec Site Episode Care Unspec 425.4 Cardiomyopathy Other Prim 428.0 Congestive Heart Failure Unspecified 414.01 Coronary Atherosclerosis [place] 401.1 Hypertension Benign V45.02 Cardiac Defibrillator Automatic Implantable Postsurgical 427.41 Ventricular Fibrillation 586 Renal Failure Unspec 244.9 Hypothyroidism Other Unspec Office Visit 10/20/2014 Cardiology Office Bia Todd, 410.90 Myocardial Infarc 9:40a Acute Unspec Site Episode Care Unspec Office Visit 10/18/2014 [facility] Vandoren, 558.9 Gastroenteritis & 9:43a [facility] Benito Kurtz DO Colitis Noninfectious Other Office Visit 05/13/2011 [facility], 719.46 Pain Joint Lower Leg 9:00a Office Leighton Yanes MD Plan of Treatment Future Appointment(s):03/16/2019 9:00 am - Efrain Mccloud MD at [facility] RD04/25/2019 2:00 pm - Bia Todd MD at Cardiology Kyiaal5312/13/2018 - Efrain Mccloud MDE78.5 Hyperlipidemia, mokupapsrsdA83.9 Type 2 diabetes mellitus without complicationsNew Labs:Glycohemoglobin A1c, Ordered: 12/13/18LDL Cholesterol Profile, Ordered: 12/13/18E03.9 Hypothyroidism, htjqiwunxgsN45.9 Chronic kidney disease, oqkompoddozQ46.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
[2018-12-22 21:43] VITALS: BP 113/70
[2018-12-22] MEDS ORDERED: predniSONE TAB* 20 MG PO ONE (21:57)
--- NOTE | 2018-12-22 22:05 | UC ---
Lower Extremity/Ankle HPI - HPI Summary HPI Summary: left great toe pain x 1 week no injury red/swollen last pm hurt to have sheet on it has to walk on lateral aspect of left foot hx renal failure - History of Current Complaint Chief Complaint: UCLowerExtremity Stated Complaint: SWOLLEN,RED,PAINFUL L FOOT Time Seen by Provider: 12/22/18 21:45 Hx Obtained From: Patient Onset/Duration: Gradual Onset, Lasting Days Severity Initially: Mild Severity Currently: Moderate Pain Intensity: 5 Pain Scale Used: 0-10 Numeric Aggravating Factor(s): Standing, Ambulation Alleviating Factor(s): Rest Able to Bear Weight: Yes - with limp Feet (Multiple View): 1 - red/swollen/tender/painful ROM, antalgic gait/skin intact - Allergies/Home Medications Allergies/Adverse Reactions: Allergies Allergy/AdvReac Type Severity Reaction Status Date / Time morphine Allergy Itching Verified 12/22/18 21:44 Home Medications: Home Medications Acetaminophen TAB* [Tylenol TAB*] 975 mg PO Q6H PRN 12/22/18 [History Confirmed 12/22/18] PMH/Surg Hx/FS Hx/Imm Hx Endocrine History: Diabetes Cardiovascular History: Hypertension, Myocardial Infarction GI/ History: Renal Disease - Surgical History Surgical History: Yes Surgery Procedure, Year, and Place: Cadiac stents, pacer - Family History Known Family History: Positive: Cardiac Disease, Hypertension - Social History Alcohol Use: None Substance Use Type: None Smoking Status (MU): Former Smoker Review of Systems All Other Systems Reviewed And Are Negative: Yes Constitutional: Positive: Negative Skin: Positive: Negative Eyes: Positive: Negative ENT: Positive: Negative Respiratory: Positive: Negative Cardiovascular: Positive: Negative Gastrointestinal: Positive: Negative Neurovascular: Positive: Negative Musculoskeletal: Positive: Arthralgia, Decreased ROM, Edema Neurological: Positive: Negative Psychological: Positive: Negative Physical Exam Triage Information Reviewed: Yes Appearance: Well-Appearing, No Pain Distress, Well-Nourished Vital Signs: Initial Vital Signs Temp 98.7 F 12/22/18 21:38 Pulse 72 12/22/18 21:38 Resp 16 12/22/18 21:38 BP 113/70 12/22/18 21:38 Pulse Ox 97 12/22/18 21:38 Vital Signs Reviewed: Yes Eyes: Positive: Conjunctiva Clear ENT: Positive: Hearing grossly normal. Negative: Nasal congestion, Nasal drainage, Trismus, Muffled voice, Hoarse voice Neck: Positive: Supple Respiratory: Positive: Lungs clear, Normal breath sounds, No respiratory distress, No accessory muscle use Cardiovascular: Positive: RRR Musculoskeletal: Positive: Other: - see image Neurological: Positive: Alert Psychological Exam: Normal Skin Exam: Other - see image Lower Extremity Course/Dx - Differential Dx/Diagnosis Provider Diagnosis: Gouty arthritis of left great toe Discharge - Sign-Out/Discharge Documenting (check all that apply): Patient Departure All imaging exams completed and their final reports reviewed: No Studies - Discharge Plan Condition: Stable Disposition: HOME Prescriptions: predniSONE [Prednisone 20 MG TAB] 60 mg PO DAILY #6 tab Patient Education Materials: Low Purine Diet (ED), Gout (ED) Referrals: Efrain Mccloud MD [Primary Care Provider] - 2 Days Additional Instructions: check your blood sugar 4 x day for the next three day post op shoe I think you should get your Uric Acid level checked once your toe is better - Billing Disposition and Condition Condition: STABLE Disposition: Home
== END 2018-12-22 22:13 | disposition home or self-care (01) ==
LOC: UCCORT 21:24
DX: M10.9 Gout, unspecified (principal); E11.9 Type 2 diabetes mellitus without complications; I10 Essential (primary) hypertension; I25.2 Old myocardial infarction; Z88.5 Allergy status to narcotic agent; Z87.448 Personal history of other diseases of urinary system; Z87.891 Personal history of nicotine dependence
CPT/HCPCS: 99213; G0463; J7512